=== PATIENT | female | born 1950 | race Caucasian/White ===

== ENCOUNTER 2017-04-25 13:14 | Inpatient (IN) | payer OTHER ==
[~2017-04-25] VITALS: Ht 152.4 cm; Wt 47.6 kg
[2017-04-25 13:25] VITALS: BP 108/42
[2017-04-25] MEDS ORDERED: Sodium Chloride 500ML 500 ML IV ONE (13:27)
[2017-04-25] MEDS ORDERED: Albuterol ud Inhalation HHN ONE ×2 (13:30→15:45)
[2017-04-25] MEDS ORDERED: Ipratropium 0.02% Inh Soln 2.5ml UD HHN ONE ×2 (13:30→15:45)
[2017-04-25] MEDS ORDERED: TYLENOL650 MG/20. ORAL (13:37)
[2017-04-25] MEDS ORDERED: ZYVOX600 MG ORAL (13:37)
[2017-04-25] MEDS ORDERED: DIGOXIN0.125 MG/2 ORAL (13:37)
[2017-04-25] MEDS ORDERED: ASPIR 8181 MG ORAL (13:37)
[2017-04-25] MEDS ORDERED: METOPROLOL TAR100 M1 ORAL (13:37)
[2017-04-25] MEDS ORDERED: AZITHROMYCIN250 MG ORAL (13:37)
[2017-04-25] MEDS ORDERED: DIOVAN HCT 80MG1 TAB ORAL (13:37)
[2017-04-25] MEDS ORDERED: ALBUTEROL SULF8.5 GM INH (13:37)
[2017-04-25] MEDS ORDERED: ADVAIR 250-501 EACH INH (13:37)
[2017-04-25] MEDS ORDERED: AMIODARONE HCL400 M1 ORAL (13:37)
[2017-04-25] MEDS ORDERED: HYDROcodone/Acetamin 10/325 tab ORAL ONE (13:45)
--- NOTE | 2017-04-25 13:53 | Emergency Room Report ---
History of Present Illness General Chief Complaint: General Complaint Source: Patient Present Illness HPI Patient presents with several complaints complains of cough Shortness of breath diarrhea Diffuse myalgia Patient has had recent hospitalization Was dispositioned to a board and care facility however reports that she's not doing well has not been getting her medications Patient requested [place] upon arrival Reports that she has breathing problems however cannot give me a full diagnosis Patient's paperwork does report COPD Allergies: Coded Allergies: No Known Allergies (Unverified , 04/25/17) Patient History Past Medical History: see triage record Pertinent Family History: none Reviewed Nursing Documentation: PMH: Agreed, PSxH: Agreed Nursing Documentation-PMH Hx Hypertension: Yes Hx COPD: Yes Review of Systems All Other Systems: negative except mentioned in HPI Physical Exam Vital Signs Date Time Temp Pulse Resp B/P (MAP) Pulse Ox O2 Delivery O2 Flow Rate FiO2 04/25/17 13:13 98.1 102 14 108/42 98 Room Air Sp02 EP Interpretation: reviewed, normal General Appearance: mild distress - appears tachypneic Head: normocephalic, atraumatic Eyes: bilateral eye PERRL, bilateral eye EOMI ENT: hearing grossly normal, normal pharynx, TMs + canals normal, uvula midline Neck: full range of motion, supple, no meningismus, no bony tend Respiratory: no retraction, no accessory muscle use, wheezing - Bilaterally along with tachypnea, very minimal retractions were noted initially Cardiovascular #1: normal peripheral pulses, regular rate, rhythm, no edema, no gallop, no JVD, no murmur Gastrointestinal: normal bowel sounds, non tender, soft, no mass, no organomegaly, non-distended, no guarding, no hernia, no pulsatile mass, no rebound Genitourinary: no CVA tenderness Musculoskeletal: normal inspection - However the patient appears tremulous Neurologic: oriented x3, responsive, financial services rep III-XII nml as tested, motor strength/ tone normal, sensory intact Psychiatric: mood/affect normal Skin: other - Diffuse venous stasis on both lower extremity no obvious pitting edema Lymphatic: normal inspection, no adenopathy Medical Decision Making Diagnostic Impression: Primary Impression: COPD exacerbation Additional Impressions: Dyspnea Hyponatremia ER Course Patient is a fairly complex patient with multiple differential to consideration including but not limited to cardiac cardiopulmonary and vascular emergencies Patient has done somewhat better with breathing treatment At this time showing abnormal blood tests including hyponatremia Patient also received steroids for the COPD exacerbation at this time requires further inpatient care Labs Test 04/25/17 13:50 White Blood Count 10.9 K/UL (4.8-10.8) Red Blood Count 3.07 M/UL (4.20-5.40) Hemoglobin 9.4 G/DL (12.0-16.0) Hematocrit 29.1 % (37.0-47.0) Mean Corpuscular Volume 95 FL (80-99) Mean Corpuscular Hemoglobin 30.5 PG (27.0-31.0) Mean Corpuscular Hemoglobin Concent 32.1 G/DL (32.0-36.0) Red Cell Distribution Width 15.3 % (11.6-14.8) Platelet Count 293 K/UL (150-450) Mean Platelet Volume 5.5 FL (6.5-10.1) Neutrophils (%) (Auto) % (45.0-75.0) Lymphocytes (%) (Auto) % (20.0-45.0) Monocytes (%) (Auto) % (1.0-10.0) Eosinophils (%) (Auto) % (0.0-3.0) Basophils (%) (Auto) % (0.0-2.0) Differential Total Cells Counted 100 Neutrophils % (Manual) 90 % (45-75) Lymphocytes % (Manual) 4 % (20-45) Monocytes % (Manual) 6 % (1-10) Eosinophils % (Manual) 0 % (0-3) Basophils % (Manual) 0 % (0-2) Band Neutrophils 0 % (0-8) Platelet Estimate Adequate Platelet Morphology Normal Hypochromasia 1+ Anisocytosis 1+ Sodium Level 128 MMOL/L (136-145) Potassium Level 4.3 MMOL/L (3.5-5.1) Chloride Level 97 MMOL/L (98-107) Carbon Dioxide Level 25 MMOL/L (21-32) Anion Gap 6 mmol/L (5-15) Blood Urea Nitrogen 9 mg/dL (7-18) Creatinine 0.7 MG/DL (0.55-1.30) Estimat Glomerular Filtration Rate > 60 mL/min (>60) Glucose Level 115 MG/DL (74-106) Calcium Level 9.0 MG/DL (8.5-10.1) Total Bilirubin 0.3 MG/DL (0.2-1.0) Aspartate Amino Transf (AST/SGOT) 34 U/L (15-37) Alanine Aminotransferase (ALT/SGPT) 18 U/L (12-78) Alkaline Phosphatase 85 U/L (46-116) Total Creatine Kinase 43 U/L (26-308) Creatine Kinase MB 1.9 NG/ML (0.0-3.6) Creatine Kinase MB Relative Index 4.4 Troponin I 0.040 ng/mL (0.000-0.056) Total Protein 7.3 G/DL (6.4-8.2) Albumin 2.9 G/DL (3.4-5.0) Globulin 4.4 g/dL Albumin/Globulin Ratio 0.7 (1.0-2.7) Rhythm Strip Diag. Results EP Interpretation: yes Rate: 88 Rhythm: NSR, no PVC's, no ectopy Other Impression Please note that the initial EKG is interpreting possible atrial fibrillation however the patient appears to be in a sinus rhythm with significant artifact, Chest X-Ray Diagnostic Results Chest X-Ray Diagnostic Results : Chest X-Ray Ordered: Yes # of Views/Limited/Complete: 1 View Indication: Chest Pain EP Interpretation: Yes Interpretation: no consolidation, no effusion, no pneumothorax, other - cardiomegaly Impression: No acute disease Electronically Signed by: DO Alexander Jones Vital Signs Date Time Temp Pulse Resp B/P (MAP) Pulse Ox O2 Delivery O2 Flow Rate FiO2 04/25/17 13:25 98.1 102 14 108/42 98 Room Air Status: improved Disposition: ADMITTED INPATIENT Condition: Serious MANNY PRASAD D.O. Apr 25, 2017 13:53
[2017-04-25] MEDS ORDERED: Solu-MEDROL 125mg Inj IVP ONE (14:00)
[2017-04-25 14:09] LABS: HEMATOCRIT 29.1 % (37.0-47.0); HEMOGLOBIN 9.4 G/DL (12.0-16.0); MEAN CORPUSCULAR VOLUME 95 FL (80-99); PLATELET COUNT 293 K/UL (150-450); RED BLOOD COUNT 3.07 M/UL (4.20-5.40); RED CELL DISTRIBUTION WIDTH 15.3 % (11.6-14.8); WHITE BLOOD COUNT 10.9 K/UL (4.8-10.8)
[2017-04-25 14:26] LABS: ANION GAP 6 mmol/L (5-15); BLOOD UREA NITROGEN 9 mg/dL (7-18); CARBON DIOXIDE 25 MMOL/L (21-32); CHLORIDE 97 MMOL/L (98-107); CREATININE 0.7 MG/DL (0.55-1.30); POTASSIUM 4.3 MMOL/L (3.5-5.1); SODIUM 128 MMOL/L (136-145)
[2017-04-25 14:40] LABS: ALANINE AMINOTRANSFERASE 18 U/L (12-78); ALBUMIN 2.9 G/DL (3.4-5.0); ALBUMIN/GLOBULIN RATIO 0.7 (1.0-2.7); ALKALINE PHOSPHATASE 85 U/L (46-116); ASPARTATE AMINO TRANSFERASE 34 U/L (15-37); BILIRUBIN,TOTAL 0.3 MG/DL (0.2-1.0); CKMB 1.9 NG/ML (0.0-3.6); CREATINE KINASE 43 U/L (26-308)
[2017-04-25] MEDS ORDERED: LORazepam Inj 2mg/ml 1ml IV ONE (14:45)
[2017-04-25 16:45] VITALS: BP 114/61
[2017-04-25 20:04] VITALS: BP 90/50
[2017-04-25] MEDS: Heparin 5000 units/ml inj SUBQ SCH (21:32)
[2017-04-25] MEDS: Albuterol/Ipratropium 3ml neb HHN SCH (23:00)
[2017-04-25] MEDS: cefTRIAXone 1 GM in D5W 55 ML IVPB SCH (23:43)
[2017-04-26] MEDS: Acetaminophen 500mg (ES) tab ORAL PRN ×2 (00:20→08:57)
[2017-04-26] MEDS: Albuterol/Ipratropium 3ml neb HHN SCH ×6 (03:00→23:48)
[2017-04-26] MEDS: Zolpidem 5mg tab ORAL PRN ×2 (03:09→20:00)
[2017-04-26 04:00] VITALS: BP 102/58
[2017-04-26 07:14] LABS: HEMATOCRIT 24.2 % (37.0-47.0); HEMOGLOBIN 7.8 G/DL (12.0-16.0); MEAN CORPUSCULAR VOLUME 95 FL (80-99); PLATELET COUNT 223 K/UL (150-450); RED BLOOD COUNT 2.55 M/UL (4.20-5.40); RED CELL DISTRIBUTION WIDTH 15.1 % (11.6-14.8); WHITE BLOOD COUNT 15.6 K/UL (4.8-10.8)
[2017-04-26 07:54] LABS: ALANINE AMINOTRANSFERASE 14 U/L (12-78); ALBUMIN 2.5 G/DL (3.4-5.0); ALBUMIN/GLOBULIN RATIO 0.7 (1.0-2.7); ALKALINE PHOSPHATASE 71 U/L (46-116); ANION GAP 7 mmol/L (5-15); ASPARTATE AMINO TRANSFERASE 20 U/L (15-37); BILIRUBIN,TOTAL 0.2 MG/DL (0.2-1.0); BLOOD UREA NITROGEN 8 mg/dL (7-18); CALCIUM 8.2 MG/DL (8.5-10.1); CARBON DIOXIDE 25 MMOL/L (21-32); CHLORIDE 98 MMOL/L (98-107); CREATININE 0.7 MG/DL (0.55-1.30); SODIUM 130 MMOL/L (136-145)
[2017-04-26 08:00] VITALS: BP 95/54
[2017-04-26] MEDS: Solu-MEDROL 40mg Inj IVP SCH ×2 (08:26→20:00)
[2017-04-26] MEDS: Heparin 5000 units/ml inj SUBQ SCH ×3 (08:28→20:06)
--- NOTE | 2017-04-26 08:36 | Diagnostic Imaging Report ---
Indication: Dyspnea Technique: XRAY Chest 1v Comparison: None Findings: An limited by patient positioning and overlying necklace which, per the x-ray technologist, patient refused to remove. Heart is enlarged. The aorta is calcified. There may be mild central pulmonary congestion. Limited evaluation of the retrocardiac lung and small effusion or infiltrate not entirely excluded. Right lung is clear. No pneumothorax. There is degenerative change of the spine. Impression: Limited exam. Small retrocardiac effusion or infiltrate is not entirely excluded. Follow-up exam recommended. Cardiomegaly and pulmonary vascular congestion. Study obtained via the emergency department however patient admitted to the hospital at time of dictation of the final report.
--- NOTE | 2017-04-26 11:02 | Consultation ---
Consult Note Consult Note 66 year old patient presents with complains of cough, shortness of breath, and diffuse myalgias. Patient was negative for flu. Patient has had recent hospitalization but apparently not able to fill his medications. Patient with breathing difficulty and reported to have COPD no fevers or chills noted. patient without chest pain or trauma. Patient denies ill contacts Allergies: No Known Allergies (Unverified , 04/25/17) Past Medical History: COPD, hypertension Pertinent Family History: none Reviewed of systems: otherwise negative Physical WDWN NAD reduced breath sounds bilaterally with scattered wheeze [id number] without MRG NABS nontender no HSM no CCE nonfocal Laboratory Tests Test 04/25/17 13:50 04/25/17 21:00 04/26/17 04:40 White Blood Count 10.9 K/UL (4.8-10.8) H 15.6 K/UL (4.8-10.8) H Red Blood Count 3.07 M/UL (4.20-5.40) L 2.55 M/UL (4.20-5.40) L Hemoglobin 9.4 G/DL (12.0-16.0) L 7.8 G/DL (12.0-16.0) L Hematocrit 29.1 % (37.0-47.0) L 24.2 % (37.0-47.0) L Mean Corpuscular Volume 95 FL (80-99) 95 FL (80-99) Mean Corpuscular Hemoglobin 30.5 PG (27.0-31.0) 30.8 PG (27.0-31.0) Mean Corpuscular Hemoglobin Concent 32.1 G/DL (32.0-36.0) 32.5 G/DL (32.0-36.0) Red Cell Distribution Width 15.3 % (11.6-14.8) H 15.1 % (11.6-14.8) H Platelet Count 293 K/UL (150-450) 223 K/UL (150-450) Mean Platelet Volume 5.5 FL (6.5-10.1) L 5.0 FL (6.5-10.1) L Neutrophils (%) (Auto) % (45.0-75.0) % (45.0-75.0) Lymphocytes (%) (Auto) % (20.0-45.0) % (20.0-45.0) Monocytes (%) (Auto) % (1.0-10.0) % (1.0-10.0) Eosinophils (%) (Auto) % (0.0-3.0) % (0.0-3.0) Basophils (%) (Auto) % (0.0-2.0) % (0.0-2.0) Differential Total Cells Counted 100 100 Neutrophils % (Manual) 90 % (45-75) H 95 % (45-75) H Lymphocytes % (Manual) 4 % (20-45) L 4 % (20-45) L Monocytes % (Manual) 6 % (1-10) 1 % (1-10) Eosinophils % (Manual) 0 % (0-3) 0 % (0-3) Basophils % (Manual) 0 % (0-2) 0 % (0-2) Band Neutrophils 0 % (0-8) 0 % (0-8) Platelet Estimate Adequate Adequate Platelet Morphology Normal Normal Hypochromasia 1+ 1+ Anisocytosis 1+ 1+ Sodium Level 128 MMOL/L (136-145) L 130 MMOL/L (136-145) L Potassium Level 4.3 MMOL/L (3.5-5.1) 5.0 MMOL/L (3.5-5.1) Chloride Level 97 MMOL/L (98-107) L 98 MMOL/L (98-107) Carbon Dioxide Level 25 MMOL/L (21-32) 25 MMOL/L (21-32) Anion Gap 6 mmol/L (5-15) 7 mmol/L (5-15) Blood Urea Nitrogen 9 mg/dL (7-18) 8 mg/dL (7-18) Creatinine 0.7 MG/DL (0.55-1.30) 0.7 MG/DL (0.55-1.30) Estimat Glomerular Filtration Rate > 60 mL/min (>60) > 60 mL/min (>60) Glucose Level 115 MG/DL (74-106) H 111 MG/DL (74-106) H Calcium Level 9.0 MG/DL (8.5-10.1) 8.2 MG/DL (8.5-10.1) L Total Bilirubin 0.3 MG/DL (0.2-1.0) 0.2 MG/DL (0.2-1.0) Aspartate Amino Transf (AST/SGOT) 34 U/L (15-37) 20 U/L (15-37) Alanine Aminotransferase (ALT/SGPT) 18 U/L (12-78) 14 U/L (12-78) Alkaline Phosphatase 85 U/L (46-116) 71 U/L (46-116) Total Creatine Kinase 43 U/L (26-308) Creatine Kinase MB 1.9 NG/ML (0.0-3.6) Creatine Kinase MB Relative Index 4.4 Troponin I 0.040 ng/mL (0.000-0.056) 0.050 ng/mL (0.000-0.056) Total Protein 7.3 G/DL (6.4-8.2) 5.9 G/DL (6.4-8.2) L Albumin 2.9 G/DL (3.4-5.0) L 2.5 G/DL (3.4-5.0) L Globulin 4.4 g/dL 3.4 g/dL Albumin/Globulin Ratio 0.7 (1.0-2.7) L 0.7 (1.0-2.7) L Arterial Blood pH 7.459 (7.350-7.450) Arterial Blood Partial Pressure CO2 34.9 mmHg (35.0-45.0) L Arterial Blood Partial Pressure O2 133.9 mmHg (75.0-100.0) H Arterial Blood HCO3 24.2 mmol/L (22.0-26.0) Arterial Blood Oxygen Saturation 98.3 % (92.0-98.0) H Arterial Blood Base Excess 0.5 Itz Test Positive Pro-B-Type Natriuretic Peptide 1868 pg/mL (0-125) H Thyroid Stimulating Hormone (TSH) 1.722 uiU/mL (0.358-3.740) IMPRESSION possible pneumonia COPD shortness of breath hypertension anemia ?GIB PLAN defer transfusion to primary ?gi work up care noted IV antibiotics respiratory care oxygen supportive care IV steroids senior care steroid and LABA/LAMA inhalers needed impression, plan, and exam edited and reviewed in detail care discussed with SPENCER LOZANO Apr 26, 2017 11:02
[2017-04-26 12:00] VITALS: BP 101/65
[2017-04-26 16:00] VITALS: BP 112/73
[2017-04-26] MEDS ORDERED: LORazepam 0.5mg tab ORAL PRN (16:00)
[2017-04-26] MEDS ORDERED: Digoxin 0.125mg tab ORAL ONE (16:15)
[2017-04-26] MEDS ORDERED: Tubing IV Secondary IV ONE (16:21)
[2017-04-26] MEDS: Vancomycin 500mg/D5W 110ml IVPB SCH ×2 (17:46)
[2017-04-26 20:00] VITALS: BP 107/68
--- NOTE | 2017-04-26 22:02 | History and Physical Report ---
DATE OF ADMISSION: 04/25/2017 REASON FOR ADMISSION: Shortness of breath. HISTORY OF PRESENT ILLNESS: This is a 66-year-old female. She recently was hospitalized at [facility] and discharged to [facility]. She is unclear whether she received a medication regimen that was prescribed to her at least part of it. She was hospitalized with Staph aureus sepsis and COPD exacerbation with rapid atrial fibrillation. She also was noted to have hyponatremia. She also was noted to have cocaine abuse, this Staph aureus with methicillin-resistant. The patient presented to the emergency room tonight with shortness of breath and congestion and muscle aches. She has had a cough. Her workup in the emergency room included a chest x-ray that revealed a possible infiltrate. She was noted to be wheezing as well. PAST MEDICAL HISTORY: Outlined above and bipolar disorder. ALLERGIES: None known. FAMILY HISTORY: Noncontributory. SOCIAL HISTORY: Denies current smoking. There is a history of cocaine abuse. She denies alcohol abuse. REVIEW OF SYSTEMS: Cannot be reliably obtained. PHYSICAL EXAMINATION: VITAL SIGNS: Blood pressure 108/42, pulse 102, respirations 14, and afebrile. HEENT: Conjunctiva pink. Oropharynx clear. NECK: Supple. No accessory muscle use. LUNGS: With coarse breath sounds, rhonchi and expiratory wheezes. CARDIAC: Irregularly irregular. Normal S1 and S2. No murmur. ABDOMEN: Soft and nontender. EXTREMITIES: With trace edema, but stasis derm changes. LABORATORY AND DIAGNOSTIC DATA: White count 10.9 and hemoglobin 9.4. Sodium 128, potassium 4.3, bicarbonate 25, BUN 9, and creatinine 0.7. Albumin 2.9. Troponin negative. IMPRESSION: 1. Chronic obstructive pulmonary disease exacerbation. 2. Atrial fibrillation with increased ventricular response. 3. Possible pneumonia, recent hospitalization. 4. History of cocaine abuse. 5. Recent methicillin-resistant Staphylococcus aureus bacteremia. 6. Paroxysmal bronchospasm. 7. Bipolar disorder. 8. Hyponatremia. PLAN: 1. Antimicrobials. 2. Respiratory hygiene. 3. Bronchodilators. 4. Intravenous steroid. 5. Continue digoxin. 6. No anticoagulation plans due to compliance issues. 7. Follow up chest x-ray. 8. Saline hydration. 9. Possible concomitant diuresis. 10. Check urine toxicology screen and urine electrolytes. Jeremiah Kitty Harvey DR: OLIVA JOB#: [id number] CC:
--- NOTE | 2017-04-26 22:02 | Progress Note ---
DATE: 04/26/2017 INTERNAL MEDICINE PROGRESS NOTE SUBJECTIVE: The patient is agitated, but directable. She has been asking for frequent pain medications and is quite anxious. She notes less congestion. She is anxious to leave the hospital. OBJECTIVE: VITAL SIGNS: Oxygen saturation on room air 96%, blood pressure 101/65, heart rate 83, and respiratory rate 20. Monitored rhythm, atrial fibrillation. HEENT: Conjunctivae pink. Oropharynx clear. NECK: Supple. LUNGS: With coarse breath sounds and rhonchi. Few expiratory wheezes. CARDIAC: Irregularly irregular rhythm. Normal S1 and S2. ABDOMEN: Soft. EXTREMITIES: No edema. LABORATORY AND DIAGNOSTIC DATA: Echocardiogram, mild pulmonary hypertension. Normal ejection fraction. Normal wall motion. Mild mitral regurgitation and tricuspid regurgitation. Chest x-ray with possible infiltrate on the right. IMPRESSION: 1. Possible pneumonia. 2. History of staphylococcal sepsis. 3. Paroxysmal atrial fibrillation. 4. History of cocaine abuse. 5. Chronic obstructive pulmonary disease exacerbation. 6. Acute on chronic diastolic congestive heart failure. 7. Moderate protein-calorie malnutrition. 8. Hyponatremia. 9. Anemia. PLAN: 1. Check anemia panel, consider transfusion. 2. Antibiotics to be broadened and covered Staph aureus. 3. Respiratory hygiene. 4. Steroids with taper as able. 5. Inhaled bronchodilators. 6. Digoxin for rate control. 7. No plan for anticoagulation due to anemia, possible bleeding risk and compliance issues. 8. Anxiolytics based on clinical state. Jeremiah Harvey M.D. DR: OLIVA JOB#: [id number] CC:
[2017-04-27] VITALS: BP 124/80
[2017-04-27] MEDS: cefTRIAXone 1 GM in D5W 55 ML IVPB SCH ×2 (00:27→22:54)
[2017-04-27] MEDS ORDERED: OLANZapine 2.5mg tab ORAL ONE (02:45)
[2017-04-27] MEDS: Albuterol/Ipratropium 3ml neb HHN SCH ×6 (03:23→23:31)
[2017-04-27] MEDS: LORazepam 1mg tab ORAL PRN ×3 (03:52→22:54)
[2017-04-27 04:00] VITALS: BP 121/77
[2017-04-27] MEDS: Vancomycin 500mg/D5W 110ml IVPB SCH ×4 (06:00→16:45)
[2017-04-27 07:23] LABS: HEMATOCRIT 28.1 % (37.0-47.0); HEMOGLOBIN 8.9 G/DL (12.0-16.0); MEAN CORPUSCULAR VOLUME 97 FL (80-99); PLATELET COUNT 258 K/UL (150-450); RED CELL DISTRIBUTION WIDTH 16.3 % (11.6-14.8); WHITE BLOOD COUNT 12.3 K/UL (4.8-10.8)
[2017-04-27 08:00] VITALS: BP 124/75
[2017-04-27 08:08] LABS: ALANINE AMINOTRANSFERASE 17 U/L (12-78); ALBUMIN 2.8 G/DL (3.4-5.0); ALBUMIN/GLOBULIN RATIO 0.7 (1.0-2.7); ALKALINE PHOSPHATASE 83 U/L (46-116); ANION GAP 9 mmol/L (5-15); ASPARTATE AMINO TRANSFERASE 22 U/L (15-37); BILIRUBIN,TOTAL 0.2 MG/DL (0.2-1.0); BLOOD UREA NITROGEN 6 mg/dL (7-18); CALCIUM 8.9 MG/DL (8.5-10.1); CARBON DIOXIDE 24 MMOL/L (21-32); CHLORIDE 100 MMOL/L (98-107); CREATININE 0.7 MG/DL (0.55-1.30); POTASSIUM 4.7 MMOL/L (3.5-5.1); SODIUM 133 MMOL/L (136-145)
[2017-04-27] MEDS: Solu-MEDROL 40mg Inj IVP SCH ×2 (08:10→21:46)
[2017-04-27 08:13] LABS: % IRON SATURATION 6 % (15-50); IRON 17 ug/dL (50-175); TOTAL IRON BINDING CAPACITY 284 ug/dL (250-450)
[2017-04-27] MEDS: Digoxin 0.125mg tab ORAL SCH (08:13)
[2017-04-27] MEDS: Heparin 5000 units/ml inj SUBQ SCH ×2 (08:13→21:00)
--- NOTE | 2017-04-27 08:19 | Pulmonology Progress Note ---
Assessment/Plan Assessment/Plan IMPRESSION possible pneumonia COPD shortness of breath hypertension anemia ?GIB PLAN care noted IV antibiotics respiratory care oxygen supportive care IV steroids chcf steroid and LABA/LAMA inhalers needed on discharge impression, plan, and exam edited and reviewed in detail care discussed with RN Subjective Allergies: Coded Allergies: No Known Allergies (Unverified , 04/25/17) Subjective care reviewed on o2 Objective Last 24 Hour Vital Signs Date Time Temp Pulse Resp B/P (MAP) Pulse Ox O2 Delivery O2 Flow Rate FiO2 04/27/17 08:13 72 04/27/17 07:22 28 04/27/17 07:22 98 18 99 Nasal Cannula 2.0 04/27/17 07:17 Nasal Cannula 2.0 28 04/27/17 07:17 99 Nasal Cannula 2.0 04/27/17 07:15 98 18 99 Nasal Cannula 2.0 04/27/17 04:00 97.9 110 18 121/77 100 Nasal Cannula 2.0 04/27/17 04:00 95 04/27/17 03:25 92 20 98 Nasal Cannula 2.0 04/27/17 03:18 28 04/27/17 03:18 86 18 99 Nasal Cannula 2.0 04/27/17 00:00 108 04/27/17 00:00 97.4 101 12 124/80 99 Nasal Cannula 2.0 04/26/17 23:56 106 22 98 Nasal Cannula 2.0 04/26/17 23:48 99 22 96 Nasal Cannula 2.0 04/26/17 20:00 108 04/26/17 20:00 98.1 102 12 107/68 100 Nasal Cannula 2.0 04/26/17 19:12 99 22 97 Nasal Cannula 2.0 28 04/26/17 18:56 97 Nasal Cannula 2.0 28 04/26/17 18:56 Nasal Cannula 2.0 28 04/26/17 18:55 105 22 97 Nasal Cannula 2.0 04/26/17 17:46 97 04/26/17 16:00 99 04/26/17 16:00 97.1 103 20 112/73 99 Nasal Cannula 2.0 04/26/17 15:28 Nasal Cannula 04/26/17 15:28 Nasal Cannula 04/26/17 12:00 97.2 95 20 101/65 96 Room Air 04/26/17 12:00 82 04/26/17 11:25 101 18 Room Air 04/26/17 11:10 106 22 98 Nasal Cannula 2.0 28 Intake and Output 04/26/17 04/27/17 19:00 07:00 Intake Total 240 ml 200 ml Output Total 450 ml Balance -210 ml 200 ml Intake Oral 240 ml 200 ml Output Urine Total 450 ml # Voids 1 3 # Bowel Movements 1 Objective WDWN NAD reduced breath sounds bilaterally without rhonchi or wheeze [id number] without MRG NABS nontender no HSM no CCE nonfocal Microbiology Date/Time Source Procedure Growth Status 04/26/17 00:00 Nasal Nares Influenza Types A,B Antigen (LOS) - Final Complete Laboratory Tests 04/26/17 21:00: Urine Osmolality 202L, Urine Random Sodium < 10L, Urine Opiates Screen Negative , Urine Barbiturates Screen Negative, Phencyclidine (PCP) Screen Negative, Urine Amphetamines Screen Negative, Urine Benzodiazepines Screen Negative, Urine Cocaine Screen Negative, Urine Marijuana (THC) Screen Negative 04/27/17 05:15: White Blood Count 12.3H, Red Blood Count 2.90L, Hemoglobin 8.9L, Hematocrit 28.1L, Mean Corpuscular Volume 97, Mean Corpuscular Hemoglobin 30.9, Mean Corpuscular Hemoglobin Concent 31.8L, Red Cell Distribution Width 16.3H, Platelet Count 258, Mean Platelet Volume 5.7L, Neutrophils (%) (Auto) , Lymphocytes (%) (Auto) , Monocytes (%) (Auto) , Eosinophils (%) (Auto) , Basophils (%) (Auto) , Neutrophils % (Manual) [Pending], Lymphocytes % (Manual) [Pending], Platelet Estimate [Pending], Platelet Morphology [Pending], Sodium Level 133L, Potassium Level 4.7, Chloride Level 100, Carbon Dioxide Level 24, Anion Gap 9, Blood Urea Nitrogen 6L, Creatinine 0.7, Estimat Glomerular Filtration Rate > 60, Glucose Level 112H, Calcium Level 8.9, Iron Level 17L, Total Iron Binding Capacity 284, Percent Iron Saturation 6L, Unsaturated Iron Binding 267, Total Bilirubin 0.2, Aspartate Amino Transf (AST/SGOT) 22, Alanine Aminotransferase (ALT/SGPT) 17, Alkaline Phosphatase 83, Total Protein 7.0, Albumin 2.8L, Globulin 4.2, Albumin/Globulin Ratio 0.7L, Vitamin B12 Level [ Pending], Folate [Pending], Digoxin Level 0.6L Current Medications Medications (Trade) Dose Ordered Sig/Matthieu Route PRN Reason Start Time Stop Time Status Last Admin Dose Admin Acetaminophen (Tylenol) 650 mg Q6H PRN ORAL Mild Pain/Temp > 100.5 04/26/17 18:00 05/26/17 17:59 04/27/17 08:12 Albuterol/ Ipratropium (Albuterol/ Ipratropium) 3 ml Q4HRT HHN 04/25/17 23:00 04/30/17 22:59 04/27/17 07:15 Ceftriaxone Sodium 1 gm/ Dextrose 55 ml @ 110 mls/hr Q24H IVPB 04/25/17 23:00 05/02/17 22:59 04/27/17 00:27 Digoxin (Lanoxin) 0.125 mg DAILY ORAL 04/27/17 09:00 05/27/17 08:59 04/27/17 08:13 Heparin Sodium (Porcine) (Heparin 5000 units/ml) 5,000 units EVERY 12 HOURS SUBQ 04/25/17 21:00 05/25/17 20:59 04/25/17 21:32 Lorazepam (Ativan) 1 mg Q8HR PRN ORAL For Anxiety 04/26/17 23:00 05/03/17 22:59 04/27/17 03:52 Methylprednisolone Sodium Succinate (Solu-MEDROL) 40 mg EVERY 12 HOURS IVP 04/26/17 09:00 05/26/17 08:59 04/27/17 08:10 Olanzapine (ZyPREXA) 5 mg HSPRN PRN ORAL Agitation/insomnia 04/26/17 20:45 05/26/17 20:44 04/26/17 21:23 Ondansetron HCl (Zofran) 4 mg Q6H PRN IVP Nausea & Vomiting 04/26/17 17:00 05/26/17 16:59 04/27/17 03:52 Vancomycin HCl (Vanco rx to dose) 1 ea DAILY PRN MISC Per rx protocol 04/26/17 17:00 05/26/17 16:59 Vancomycin HCl 500 mg/Dextrose 110 ml @ 110 mls/hr Q12H IVPB 04/26/17 18:00 05/01/17 17:59 04/27/17 06:00 SPENCER GUERRERO Apr 27, 2017 08:18
--- NOTE | 2017-04-27 11:34 | Diagnostic Imaging Report ---
Indication: Cough Technique: One view of the chest Comparison: 04/25/2017 Findings: There is again demonstrated blunting of left costophrenic sulcus, consistent with pleural fluid. There is new finding of blunting of the right costophrenic sulcus, may also indicate a small amount of pleural fluid. The lungs are clear. The heart is borderline enlarged. There is a small nodular opacity projected at the left lateral midlung, not evident previously. Impression: Stable left, possible new or increased small right pleural effusions, over 2 days Small rounded opacity projected of the left lateral midlung. Suspect artifact overlapping structures, but could represent a small patchy developing infiltrate. Follow-up radiographs recommended
[2017-04-27 12:00] VITALS: BP 110/58
--- NOTE | 2017-04-27 12:49 | Wound Care Consultation ---
Wound Assessment Wound Assessment #1: Wound Number: 1 Wound Present on Admission: Yes New Wound: No Status Change of Wound: No Wound Location Body Site Modif: left, right, upper Wound Location Body Site: arm Wound Type: scab - scabs scattered with self inflicted scratches Shaye Test: Does not Shaye Wound Thickness: Partial Thickness Percent of Wound [place]/Red: 50 Percent of Wound Black/Brown: 50 - scabs Wound Drainage Description: Serosanguineous Wound Drainage Amount: Scant Wound Drainage Odor: None/Absent Wound General Appearance: Reddened, Draining Wound Assessment #2: Wound Number: 2 Wound Present on Admission: Yes New Wound: No Status Change of Wound: No Wound Location Body Site Modif: left, right, lower Wound Location Body Site: leg Wound Type: scab - scabs scattered with self inflicted scratches Shaye Test: Does not Shaye Wound Thickness: Full Thickness - and partial thickness Wound Drainage Description: Serosanguineous Wound Drainage Amount: Scant Wound Drainage Odor: None/Absent Tissue Surrounding Wound: Erythemic Wound General Appearance: Reddened, Draining Wound Assessment #3: Wound Number: 3 Wound Present on Admission: Yes New Wound: No Status Change of Wound: No Wound Location Body Site Modif: left Wound Location Body Site: metatarsal head - 1st Wound Type: scab - callus like yellow/hanson Shaye Test: Does not Shaye Wound Length: 1.0 Wound Width: 1.0 Wound Depth: utd Percent of Wound Black/Brown: 100 - yellow /hanson Wound Drainage Amount: None Wound Drainage Odor: None/Absent Tissue Surrounding Wound: Intact Wound General Appearance: Open to air Wound Assessment #4: Wound Number: 4 Wound Present on Admission: Yes New Wound: No Status Change of Wound: No Wound Location Body Site: perianal Wound Type: chemical burn Shaye Test: Does not Shaye Percent of Wound [place]/Red: 100 Wound Drainage Amount: None Wound Drainage Odor: None/Absent Tissue Surrounding Wound: Erythemic Wound General Appearance: Reddened Wound Comment #1 left and right upper arm scattered scabs with self inflicted scabs #2 left and right lower leg scattered scabs with self inflicted scabs. #3 left 1st metatarsal head scab-callus like. #4 perianal chemical burn Recommendation. -Local wound care as ordered. -Turn and reposition. -Keep clean and dry. -Optimize nutrition. -Assess and notify MD for any change of condition to skin noted. BELGICA NORIEGA Apr 27, 2017 12:49
[2017-04-27] MEDS ORDERED: Depakote 500mg tab ORAL ONE (13:00)
--- NOTE | 2017-04-27 15:56 | Diagnostic Imaging Report ---
Indication: Cough Technique: One view of the chest Comparison: 07 hours earlier Findings: Bilateral left greater than right costophrenic angle blunting persists. One or more faint subtle opacities again demonstrated in the left midlung periphery, not significantly changed if real. The heart remains enlarged. Impression: Unchanged, over 7 hours, findings as above.
[2017-04-27 16:00] VITALS: BP 101/57
--- NOTE | 2017-04-27 18:21 | Cardiology Report ---
APPROVED REPORT EXAM: Two-dimensional and M-mode echocardiogram with Doppler and color Doppler. INDICATION Cardiomyopathy M-Mode DIMENSIONS IVSd0.6 (0.7-1.1cm)Left Atrium (MM)4.6 (1.6-4.0cm) LVDd5.3 (3.5-5.6cm)Aortic Root3.2 (2.0-3.7cm) PWd1.0 (0.7-1.1cm)Aortic Cusp Exc.2.0 (1.5-2.0cm) LVDs3.5 (2.5-4.0cm) PWs1.1 cm Technically difficult study due to poor acoustical windows. Pt moving. Normal left ventricular chamber size, systolic function and wall motion. Left ventricular ejection fraction estimated to be 55-60%. No evidence of left ventricular hypertrophy. No evidence of pericardial or pleural effusion. Mild left atrial enlargement by 2D. Severe right atrial enlargement by 2D. Focal aortic valve sclerosis with adequate cusp excursion. Thickened mitral valve leaflets with normal excursion. Mild mitral annulus and aortic root calcification. Pulmonic valve is well visualized. Normal tricuspid valve structure. IVC dilated at 2.6 cm with minimal collapse with respiration indicate increased RA pressure. RA pressure of 15mmHg. A color flow and spectral Doppler study was performed and revealed: No aortic regurgitation. Mild mitral regurgitation. Mitral diastolic dysfunction not obtainable due to A-FIB. Severe tricuspid regurgitation. Tricuspid systolic velocities suggests peak right ventricular systolic pressure of 43 mmHg Consistent with mild pulmonary hypertension. Pulmonic regurgitation present.
[2017-04-27 20:00] VITALS: BP 118/67
[2017-04-27] MEDS: Iron Sucrose 100 MG in NS 55 ML IV SCH (21:46)
[2017-04-27] MEDS ORDERED: Digoxin 0.5mg/2ml Inj IVP ONE (22:00)
--- NOTE | 2017-04-27 23:16 | Consultation ---
History of Present Illness General Date patient seen: Apr 27, 2017 Chief Complaint: General Complaint Present Illness HPI 66 yo female with hx of bipolar d/o as well as mmp. here for medical stabilization. the pt pw pressured speech, agitation, delusional, disorganized and has memory impairment Allergies: Coded Allergies: No Known Allergies (Unverified , 04/25/17) Medication History Scheduled Albuterol Sulfate* (Albuterol Sulfate Mdi*), 2 PUFF INH PRN, (Reported) Amiodarone Hcl* (Amiodarone Hcl*), 200 MG ORAL EVERY 8 HOURS, (Reported) Aspirin* (Aspir 81*), 81 MG ORAL DAILY, (Reported) Azithromycin* (Zithromax*), 250 MG ORAL DAILY, (Reported) Digoxin* (Digoxin*), 0.125 MG ORAL DAILY, (Reported) Fluticasone/Salmeterol (Advair 250-50 Diskus), 1 PUFF INH EVERY 12 HOURS, ( Reported) Linezolid* (Zyvox*), 600 MG ORAL EVERY 12 HOURS, (Reported) Metoprolol Tartrate* (Metoprolol Tartrate*), 100 MG ORAL DAILY, (Reported) Valsartan (Diovan), 1 TAB ORAL DAILY, (Reported) Scheduled PRN Acetaminophen (Acetaminophen), 650 MG ORAL Q6H PRN for Prn Headache/Temp > 101, (Reported) Patient History History Provided By: Patient, Medical Record, PMD Healthcare decision maker Resuscitation status Full Code Advanced Directive on File No Past Medical/Surgical History Past Medical/Surgical History: (1) Dyspnea (2) Hyponatremia (3) COPD exacerbation (4) Agitation Review of Systems Psychiatric: Reports: prior hx, anxiety, depressed feelings, emotional problems Physical Exam General Appearance: no apparent distress, alert, confused, agitated, combative Neurologic: alert, responsive, disoriented Last 24 Hour Vital Signs Date Time Temp Pulse Resp B/P (MAP) Pulse Ox O2 Delivery O2 Flow Rate FiO2 04/27/17 22:58 117 04/27/17 20:26 Nasal Cannula 2.0 04/27/17 20:25 28 04/27/17 20:25 98 Nasal Cannula 2.0 04/27/17 20:24 93 18 97 Nasal Cannula 2.0 04/27/17 16:28 Nasal Cannula 04/27/17 16:28 Nasal Cannula 04/27/17 16:00 124 04/27/17 16:00 97.8 131 20 101/57 98 Room Air 131 04/27/17 12:00 98.0 123 18 110/58 Room Air 123 04/27/17 12:00 127 04/27/17 11:34 88 18 96 Nasal Cannula 2.0 28 04/27/17 11:34 28 04/27/17 11:24 88 18 96 Nasal Cannula 2.0 28 04/27/17 08:13 72 04/27/17 08:00 144 04/27/17 08:00 98.1 72 20 124/75 Nasal Cannula 20 04/27/17 07:22 28 04/27/17 07:22 98 18 99 Nasal Cannula 2.0 28 04/27/17 07:17 Nasal Cannula 2.0 28 04/27/17 07:17 99 Nasal Cannula 2.0 28 04/27/17 07:15 98 18 99 Nasal Cannula 2.0 28 04/27/17 04:00 97.9 110 18 121/77 100 Nasal Cannula 2.0 04/27/17 04:00 95 04/27/17 03:25 92 20 98 Nasal Cannula 2.0 28 04/27/17 03:18 28 04/27/17 03:18 86 18 99 Nasal Cannula 2.0 28 04/27/17 00:00 108 04/27/17 00:00 97.4 101 12 124/80 99 Nasal Cannula 2.0 04/26/17 23:56 106 22 98 Nasal Cannula 2.0 28 04/26/17 23:48 99 22 96 Nasal Cannula 2.0 28 Intake and Output 04/26/17 04/27/17 19:00 07:00 Intake Total 240 ml 200 ml Output Total 450 ml Balance -210 ml 200 ml Intake Oral 240 ml 200 ml Output Urine Total 450 ml # Voids 1 3 # Bowel Movements 1 Laboratory Tests Test 04/27/17 05:15 White Blood Count 12.3 K/UL (4.8-10.8) H Red Blood Count 2.90 M/UL (4.20-5.40) L Hemoglobin 8.9 G/DL (12.0-16.0) L Hematocrit 28.1 % (37.0-47.0) L Mean Corpuscular Volume 97 FL (80-99) Mean Corpuscular Hemoglobin 30.9 PG (27.0-31.0) Mean Corpuscular Hemoglobin Concent 31.8 G/DL (32.0-36.0) L Red Cell Distribution Width 16.3 % (11.6-14.8) H Platelet Count 258 K/UL (150-450) Mean Platelet Volume 5.7 FL (6.5-10.1) L Neutrophils (%) (Auto) % (45.0-75.0) Lymphocytes (%) (Auto) % (20.0-45.0) Monocytes (%) (Auto) % (1.0-10.0) Eosinophils (%) (Auto) % (0.0-3.0) Basophils (%) (Auto) % (0.0-2.0) Differential Total Cells Counted 100 Neutrophils % (Manual) 85 % (45-75) H Lymphocytes % (Manual) 6 % (20-45) L Monocytes % (Manual) 9 % (1-10) Eosinophils % (Manual) 0 % (0-3) Basophils % (Manual) 0 % (0-2) Band Neutrophils 0 % (0-8) Platelet Estimate Adequate Platelet Morphology Normal Hypochromasia 2+ Anisocytosis 1+ Sodium Level 133 MMOL/L (136-145) L Potassium Level 4.7 MMOL/L (3.5-5.1) Chloride Level 100 MMOL/L (98-107) Carbon Dioxide Level 24 MMOL/L (21-32) Anion Gap 9 mmol/L (5-15) Blood Urea Nitrogen 6 mg/dL (7-18) L Creatinine 0.7 MG/DL (0.55-1.30) Estimat Glomerular Filtration Rate > 60 mL/min (>60) Glucose Level 112 MG/DL (74-106) H Calcium Level 8.9 MG/DL (8.5-10.1) Iron Level 17 ug/dL (50-175) L Total Iron Binding Capacity 284 ug/dL (250-450) Percent Iron Saturation 6 % (15-50) L Unsaturated Iron Binding 267 ug/dL (112-346) Total Bilirubin 0.2 MG/DL (0.2-1.0) Aspartate Amino Transf (AST/SGOT) 22 U/L (15-37) Alanine Aminotransferase (ALT/SGPT) 17 U/L (12-78) Alkaline Phosphatase 83 U/L (46-116) Total Protein 7.0 G/DL (6.4-8.2) Albumin 2.8 G/DL (3.4-5.0) L Globulin 4.2 g/dL Albumin/Globulin Ratio 0.7 (1.0-2.7) L Vitamin B12 Level 716 PG/ML (193-986) Folate 6.9 NG/ML (8.6-58.9) L Digoxin Level 0.6 NG/ML (0.9-2.0) L Height (Feet): 5 Height (Inches): 0.00 Weight (Pounds): 106 Medications Current Medications Medications (Trade) Dose Ordered Sig/Matthieu Route PRN Reason Start Time Stop Time Status Last Admin Dose Admin Acetaminophen (Tylenol) 650 mg Q6H PRN ORAL Mild Pain/Temp > 100.5 04/26/17 18:00 05/26/17 17:59 04/27/17 08:12 Albuterol/ Ipratropium (Albuterol/ Ipratropium) 3 ml Q4HRT HHN 04/25/17 23:00 04/30/17 22:59 04/27/17 20:23 Ceftriaxone Sodium 1 gm/ Dextrose 55 ml @ 110 mls/hr Q24H IVPB 04/25/17 23:00 05/02/17 22:59 04/27/17 22:54 Digoxin (Lanoxin) 0.125 mg DAILY ORAL 04/27/17 09:00 05/27/17 08:59 04/27/17 08:13 Folic Acid (Folate) 1 mg DAILY ORAL 04/27/17 11:00 05/27/17 10:59 04/27/17 13:08 Heparin Sodium (Porcine) (Heparin 5000 units/ml) 5,000 units EVERY 12 HOURS SUBQ 04/25/17 21:00 05/25/17 20:59 04/25/17 21:32 Iron Sucrose 100 mg/Sodium Chloride 60 ml @ 240 mls/hr QHS IV 04/27/17 21:00 05/01/17 21:14 04/27/17 21:46 Lorazepam (Ativan) 1 mg Q8HR PRN ORAL For Anxiety 04/26/17 23:00 05/03/17 22:59 04/27/17 22:54 Methylprednisolone Sodium Succinate (Solu-MEDROL) 40 mg DAILY IVP 04/28/17 09:00 05/26/17 08:59 Olanzapine (ZyPREXA) 10 mg HSPRN PRN ORAL Agitation 04/27/17 12:30 05/27/17 12:29 Ondansetron HCl (Zofran) 4 mg Q6H PRN IVP Nausea & Vomiting 04/26/17 17:00 05/26/17 16:59 04/27/17 21:46 Vancomycin HCl (Vanco rx to dose) 1 ea DAILY PRN MISC Per rx protocol 04/26/17 17:00 05/26/17 16:59 Vancomycin HCl 500 mg/Dextrose 110 ml @ 110 mls/hr Q12H IVPB 04/26/17 18:00 05/01/17 17:59 04/27/17 16:45 Assessment/Plan Status: not improved, unchanged Assessment/Plan bipolar d/o dementia Alex Ellsworth M.D. Apr 27, 2017 23:16
[2017-04-28] VITALS: BP 110/68
--- NOTE | 2017-04-28 00:15 | Progress Note ---
DATE: 04/27/2017 SUBJECTIVE: The patient is more calm today. Has congestion and shortness of breath. Oxygen saturation on room air is 96%. OBJECTIVE: VITAL SIGNS: Blood pressure 101/57, pulse 130, respirations 20, and afebrile. LUNGS: Coarse breath sounds. Scattered rhonchi. HEART: Irregularly irregular rhythm. Normal S1, S2. ABDOMEN: Soft. EXTREMITIES: Trace edema. DIAGNOSTIC DATA: Chest x-ray reveals left greater than right costophrenic angle blunting and left mid lung periphery with opacity. LABORATORY DATA: White count 12 and hemoglobin 8.9. Percent saturation of iron is 6%. Folate is 6.9. B12 700. Albumin 2.8. IMPRESSION: 1. Chronic obstructive pulmonary disease exacerbation. 2. Probable pneumonia. 3. Moderate protein-calorie malnutrition. 4. Folate deficiency. 5. Iron deficiency. 6. Anemia, multifactorial. 7. Hyponatremia, improved. 8. Bipolar disorder with psychosis. PLAN: 1. Antibiotics. 2. Respiratory hygiene. 3. Bronchodilators. 4. Vitamin supplements. 5. Stool occult blood test. 6. Bronchodilators. 7. Steroid taper. 8. Psych therapy. 9. Discharge planning. eJremiah Harvey M.D. DR: JENA JOB#: [id number] CC:
[2017-04-28] MEDS: Albuterol/Ipratropium 3ml neb HHN SCH ×6 (02:23→23:00)
[2017-04-28 04:00] VITALS: BP 103/77
[2017-04-28 05:41] LABS: HEMATOCRIT 23.5 % (37.0-47.0); HEMOGLOBIN 7.5 G/DL (12.0-16.0); MEAN CORPUSCULAR VOLUME 96 FL (80-99); PLATELET COUNT 199 K/UL (150-450); RED BLOOD COUNT 2.44 M/UL (4.20-5.40); RED CELL DISTRIBUTION WIDTH 16.2 % (11.6-14.8); WHITE BLOOD COUNT 10.8 K/UL (4.8-10.8)
[2017-04-28] MEDS: Vancomycin 500mg/D5W 110ml IVPB SCH ×2 (06:03)
[2017-04-28 08:00] VITALS: BP 105/62
--- NOTE | 2017-04-28 08:21 | Pulmonology Progress Note ---
Assessment/Plan Assessment/Plan IMPRESSION bronchitis COPD with exacerbation shortness of breath hypertension anemia ?GIB PLAN po steroids and antibiotics respiratory care oxygen supportive care long-term steroid and LABA/LAMA inhalers needed on discharge discharge planning impression, plan, and exam edited and reviewed in detail care discussed with RN Subjective Allergies: Coded Allergies: No Known Allergies (Unverified , 04/25/17) Subjective care reviewed mild congestion Objective Last 24 Hour Vital Signs Date Time Temp Pulse Resp B/P (MAP) Pulse Ox O2 Delivery O2 Flow Rate FiO2 04/28/17 07:02 Nasal Cannula 2.0 28 04/28/17 06:43 99 20 99 Nasal Cannula 2.0 28 04/28/17 06:31 94 22 98 Nasal Cannula 2.0 28 04/28/17 06:30 98 Nasal Cannula 2.0 28 04/28/17 04:00 125 04/28/17 04:00 98.0 133 20 103/77 97 Room Air 118 04/28/17 02:28 95 18 99 Nasal Cannula 2.0 28 04/28/17 02:27 28 04/28/17 02:21 96 18 97 Nasal Cannula 2.0 28 04/28/17 00:00 139 04/28/17 00:00 139 04/28/17 00:00 99.0 126 20 110/68 96 Room Air 118 04/27/17 23:45 85 18 98 Nasal Cannula 2.0 28 04/27/17 23:33 28 04/27/17 23:31 89 18 96 Nasal Cannula 2.0 28 04/27/17 22:58 117 04/27/17 20:31 91 18 97 Nasal Cannula 2.0 28 04/27/17 20:26 Nasal Cannula 2.0 28 04/27/17 20:25 28 04/27/17 20:25 98 Nasal Cannula 2.0 28 04/27/17 20:24 93 18 97 Nasal Cannula 2.0 28 04/27/17 20:00 118 04/27/17 20:00 98.0 118 20 118/67 98 Room Air 118 04/27/17 16:28 Nasal Cannula 04/27/17 16:28 Nasal Cannula 04/27/17 16:00 124 04/27/17 16:00 97.8 131 20 101/57 98 Room Air 131 04/27/17 12:00 98.0 123 18 110/58 Room Air 123 04/27/17 12:00 127 04/27/17 11:34 88 18 96 Nasal Cannula 2.0 28 04/27/17 11:34 28 04/27/17 11:24 88 18 96 Nasal Cannula 2.0 28 Intake and Output 04/27/17 04/28/17 19:00 07:00 Intake Total 1032 ml 1200 ml Balance 1032 ml 1200 ml Intake Oral 472 ml 1200 ml Other 560 ml # Voids 5 5 # Bowel Movements 3 Objective WDWN NAD reduced breath sounds bilaterally some rhonchi [id number] without MRG NABS nontender no HSM no CCE nonfocal Microbiology Date/Time Source Procedure Growth Status 04/26/17 21:00 Sputum Gram Stain - Final Resulted 04/26/17 21:00 Sputum Culture - Preliminary Gram Negative Bacillus 1 Resulted 04/26/17 00:00 Nasal Nares Influenza Types A,B Antigen (LOS) - Final Complete 04/26/17 07:45 Rectum VRE Culture - Final Enterococcus Faecium - Vre Complete Laboratory Tests 04/28/17 05:30: White Blood Count 10.8, Red Blood Count 2.44L, Hemoglobin 7.5L, Hematocrit 23.5L , Mean Corpuscular Volume 96, Mean Corpuscular Hemoglobin 30.7, Mean Corpuscular Hemoglobin Concent 31.9L, Red Cell Distribution Width 16.2H, Platelet Count 199, Mean Platelet Volume 5.0L, Neutrophils (%) (Auto) , Lymphocytes (%) (Auto) , Monocytes (%) (Auto) , Eosinophils (%) (Auto) , Basophils (%) (Auto) , Neutrophils % (Manual) [Pending], Lymphocytes % (Manual) [Pending], Platelet Estimate [Pending], Platelet Morphology [Pending], Vancomycin Level Trough < 2.0L Current Medications Medications (Trade) Dose Ordered Sig/Matthieu Route PRN Reason Start Time Stop Time Status Last Admin Dose Admin Acetaminophen (Tylenol) 650 mg Q6H PRN ORAL Mild Pain/Temp > 100.5 04/26/17 18:00 05/26/17 17:59 04/27/17 08:12 Albuterol/ Ipratropium (Albuterol/ Ipratropium) 3 ml Q4HRT HHN 04/25/17 23:00 04/30/17 22:59 04/28/17 06:40 Ceftriaxone Sodium 1 gm/ Dextrose 55 ml @ 110 mls/hr Q24H IVPB 04/25/17 23:00 05/02/17 22:59 04/27/17 22:54 Digoxin (Lanoxin) 0.125 mg DAILY ORAL 04/27/17 09:00 05/27/17 08:59 04/27/17 08:13 Folic Acid (Folate) 1 mg DAILY ORAL 04/27/17 11:00 05/27/17 10:59 04/27/17 13:08 Heparin Sodium (Porcine) (Heparin 5000 units/ml) 5,000 units EVERY 12 HOURS SUBQ 04/25/17 21:00 05/25/17 20:59 04/25/17 21:32 Iron Sucrose 100 mg/Sodium Chloride 60 ml @ 240 mls/hr QHS IV 04/27/17 21:00 05/01/17 21:14 04/27/17 21:46 Lorazepam (Ativan) 1 mg Q8HR PRN ORAL For Anxiety 04/26/17 23:00 05/03/17 22:59 04/27/17 22:54 Methylprednisolone Sodium Succinate (Solu-MEDROL) 40 mg DAILY IVP 04/28/17 09:00 05/26/17 08:59 Olanzapine (ZyPREXA) 10 mg HSPRN PRN ORAL Agitation 04/27/17 12:30 05/27/17 12:29 Ondansetron HCl (Zofran) 4 mg Q6H PRN IVP Nausea & Vomiting 04/26/17 17:00 05/26/17 16:59 04/27/17 21:46 Vancomycin HCl (Vanco rx to dose) 1 ea DAILY PRN MISC Per rx protocol 04/26/17 17:00 05/26/17 16:59 Vancomycin HCl 500 mg/Dextrose 110 ml @ 110 mls/hr Q12H IVPB 04/26/17 18:00 05/01/17 17:59 04/28/17 06:03 SPENCER GUERRERO Apr 28, 2017 08:20
[2017-04-28] MEDS ORDERED: Solu-MEDROL 40mg Inj IVP SCH (09:00)
[2017-04-28] MEDS: Levofloxacin 500mg tab ORAL SCH (09:15)
[2017-04-28] MEDS: Digoxin 0.125mg tab ORAL SCH (09:18)
[2017-04-28] MEDS: Advair 250/50 Inhaler - 14 dose INH SCH (10:25)
[2017-04-28] MEDS: Heparin 5000 units/ml inj SUBQ SCH ×2 (11:15→20:59)
[2017-04-28 12:00] VITALS: BP_SYST 151; BP_SYST 94; BP_DIAS 60; BP_DIAS 77
[2017-04-28 16:00] VITALS: BP 112/68
[2017-04-28] MEDS: LORazepam 1mg tab ORAL PRN (17:06)
[2017-04-28 20:00] VITALS: BP 98/65
[2017-04-28] MEDS: Iron Sucrose 100 MG in NS 55 ML IV SCH (20:52)
--- NOTE | 2017-04-28 22:05 | General Progress Note ---
Assessment/Plan Status: not improved, unchanged Assessment/Plan bipolar do depakote 500mg qam, 750 mg qhs zyprexa 10mg qhs Subjective Date patient seen: Apr 28, 2017 Neurologic/Psychiatric: Reports: anxiety, depressed, emotional problems Allergies: Coded Allergies: No Known Allergies (Unverified , 04/25/17) Objective Last 24 Hour Vital Signs Date Time Temp Pulse Resp B/P (MAP) Pulse Ox O2 Delivery O2 Flow Rate FiO2 04/28/17 19:29 89 20 99 Nasal Cannula 2.0 28 04/28/17 19:15 Room Air 21 04/28/17 19:15 98 Room Air 21 04/28/17 19:14 97 20 99 Nasal Cannula 2.0 28 04/28/17 16:00 137 04/28/17 16:00 97.0 94 24 112/68 96 Nasal Cannula 2.0 04/28/17 15:55 93 20 99 Nasal Cannula 2.0 28 04/28/17 15:45 92 20 98 Nasal Cannula 2.0 28 04/28/17 12:00 97.5 124 20 94/60 97 Room Air 04/28/17 11:49 133 04/28/17 10:49 96 20 99 Nasal Cannula 2.0 28 04/28/17 10:40 90 20 98 Nasal Cannula 2.0 28 04/28/17 09:18 124 04/28/17 08:00 97.7 134 18 105/62 99 Nasal Cannula 2.0 04/28/17 07:32 128 04/28/17 07:02 Nasal Cannula 2.0 28 04/28/17 06:43 99 20 99 Nasal Cannula 2.0 28 04/28/17 06:31 94 22 98 Nasal Cannula 2.0 28 04/28/17 06:30 98 Nasal Cannula 2.0 28 04/28/17 04:00 125 04/28/17 04:00 98.0 133 20 103/77 97 Room Air 118 04/28/17 02:28 95 18 99 Nasal Cannula 2.0 28 04/28/17 02:27 28 04/28/17 02:21 96 18 97 Nasal Cannula 2.0 28 04/28/17 00:00 139 04/28/17 00:00 139 04/28/17 00:00 99.0 126 20 110/68 96 Room Air 118 04/27/17 23:45 85 18 98 Nasal Cannula 2.0 28 04/27/17 23:33 28 04/27/17 23:31 89 18 96 Nasal Cannula 2.0 28 04/27/17 22:58 117 Intake and Output 04/27/17 04/28/17 19:00 07:00 Intake Total 1032 ml 1200 ml Balance 1032 ml 1200 ml Intake Oral 472 ml 1200 ml Other 560 ml # Voids 5 5 # Bowel Movements 3 Laboratory Tests 04/28/17 05:30: White Blood Count 10.8, Red Blood Count 2.44L, Hemoglobin 7.5L, Hematocrit 23.5L , Mean Corpuscular Volume 96, Mean Corpuscular Hemoglobin 30.7, Mean Corpuscular Hemoglobin Concent 31.9L, Red Cell Distribution Width 16.2H, Platelet Count 199, Mean Platelet Volume 5.0L, Neutrophils (%) (Auto) , Lymphocytes (%) (Auto) , Monocytes (%) (Auto) , Eosinophils (%) (Auto) , Basophils (%) (Auto) , Differential Total Cells Counted 100, Neutrophils % ( Manual) 94H, Lymphocytes % (Manual) 2L, Monocytes % (Manual) 1, Eosinophils % ( Manual) 0, Basophils % (Manual) 0, Band Neutrophils 3, Platelet Estimate Adequate, Platelet Morphology Normal, Hypochromasia 1+, Anisocytosis 1+, Macrocytosis 1+, Vancomycin Level Trough < 2.0L Height (Feet): 5 Height (Inches): 0.00 Weight (Pounds): 106 General Appearance: no apparent distress, alert, confused Neurologic: alert, disoriented, depressed affect Alex Guerra M.D. Apr 28, 2017 22:05
[2017-04-29] VITALS: BP 110/64
[2017-04-29] MEDS: Advair 250/50 Inhaler - 14 dose INH SCH ×3 (00:05→21:40)
[2017-04-29] MEDS: LORazepam 1mg tab ORAL PRN ×2 (03:16→15:21)
[2017-04-29] MEDS: Albuterol/Ipratropium 3ml neb HHN SCH ×6 (03:28→23:54)
[2017-04-29 04:00] VITALS: BP 109/63
[2017-04-29 08:00] VITALS: BP 123/82
[2017-04-29] MEDS: Heparin 5000 units/ml inj SUBQ SCH ×2 (09:00→21:35)
--- NOTE | 2017-04-29 09:04 | Pulmonology Progress Note ---
Assessment/Plan Assessment/Plan IMPRESSION bronchitis COPD with exacerbation shortness of breath hypertension anemia sinus tachycardia PLAN po steroids and antibiotics cultures sensitive to levaquin check ECG now duplex legs respiratory care oxygen supportive care mcfp steroid and LABA/LAMA inhalers needed on discharge discharge planning impression, plan, and exam edited and reviewed in detail care discussed with RN Subjective Allergies: Coded Allergies: No Known Allergies (Unverified , 04/25/17) Subjective care reviewed mild congestion sinus tachycardia Objective Last 24 Hour Vital Signs Date Time Temp Pulse Resp B/P (MAP) Pulse Ox O2 Delivery O2 Flow Rate FiO2 04/29/17 07:22 136 20 96 Nasal Cannula 2.0 28 04/29/17 07:22 96 Nasal Cannula 2.0 28 04/29/17 07:22 Nasal Cannula 2.0 28 04/29/17 04:12 132 04/29/17 04:00 98.2 126 12 109/63 100 Nasal Cannula 2.0 04/29/17 03:37 95 20 99 Room Air 2.0 28 04/29/17 03:28 96 20 99 Nasal Cannula 2.0 28 04/29/17 00:00 98.8 144 22 110/64 100 Nasal Cannula 2.0 04/28/17 23:48 126 04/28/17 23:20 Room Air 04/28/17 23:20 Room Air 04/28/17 20:00 98.1 138 18 98/65 99 Nasal Cannula 2.0 04/28/17 19:37 137 04/28/17 19:29 89 20 99 Nasal Cannula 2.0 28 04/28/17 19:15 Room Air 21 04/28/17 19:15 98 Room Air 21 04/28/17 19:14 97 20 99 Nasal Cannula 2.0 28 04/28/17 16:00 137 04/28/17 16:00 97.0 94 24 112/68 96 Nasal Cannula 2.0 04/28/17 15:55 93 20 99 Nasal Cannula 2.0 28 04/28/17 15:45 92 20 98 Nasal Cannula 2.0 28 04/28/17 12:00 97.5 124 20 94/60 97 Room Air 04/28/17 11:49 133 04/28/17 10:49 96 20 99 Nasal Cannula 2.0 28 04/28/17 10:40 90 20 98 Nasal Cannula 2.0 28 04/28/17 09:18 124 Intake and Output 04/28/17 04/29/17 19:00 07:00 Intake Total 890 ml 660 ml Output Total 1200 ml 500 ml Balance -310 ml 160 ml Intake Oral 780 ml 600 ml IV Total 110 ml 60 ml Output Urine Total 1200 ml 500 ml # Voids 1 6 # Bowel Movements 1 Objective WDWN NAD reduced breath sounds bilaterally with some wheeze [id number] tachy without MRG NABS nontender no HSM no CCE nonfocal Microbiology Date/Time Source Procedure Growth Status 04/26/17 21:00 Sputum Gram Stain - Final Complete 04/26/17 21:00 Sputum Culture - Final Klebsiella Pneumoniae Esbl Complete Current Medications Medications (Trade) Dose Ordered Sig/Matthieu Route PRN Reason Start Time Stop Time Status Last Admin Dose Admin Acetaminophen (Tylenol) 650 mg Q6H PRN ORAL Mild Pain/Temp > 100.5 04/26/17 18:00 05/26/17 17:59 04/29/17 05:04 Albuterol/ Ipratropium (Albuterol/ Ipratropium) 3 ml Q4HRT HHN 04/25/17 23:00 04/30/17 22:59 04/29/17 07:21 Digoxin (Lanoxin) 0.125 mg DAILY ORAL 04/27/17 09:00 05/27/17 08:59 04/28/17 09:18 Divalproex Sodium (Depakote) 500 mg DAILY ORAL 04/29/17 09:00 05/29/17 08:59 Divalproex Sodium (Depakote) 750 mg BEDTIME ORAL 04/28/17 21:00 05/28/17 20:59 04/28/17 20:52 Folic Acid (Folate) 1 mg DAILY ORAL 04/27/17 11:00 05/27/17 10:59 04/28/17 09:18 Heparin Sodium (Porcine) (Heparin 5000 units/ml) 5,000 units EVERY 12 HOURS SUBQ 04/25/17 21:00 05/25/17 20:59 04/28/17 20:59 Iron Sucrose 100 mg/Sodium Chloride 60 ml @ 240 mls/hr QHS IV 04/27/17 21:00 05/01/17 21:14 04/28/17 20:52 Levofloxacin (Levaquin) 500 mg DAILY ORAL 04/28/17 09:00 05/05/17 08:59 04/28/17 09:15 Lorazepam (Ativan) 1 mg Q8HR PRN ORAL For Anxiety 04/26/17 23:00 05/03/17 22:59 04/29/17 03:16 Olanzapine (ZyPREXA) 10 mg HSPRN PRN ORAL Agitation 04/27/17 12:30 05/27/17 12:29 04/28/17 09:19 Ondansetron HCl (Zofran) 4 mg Q6H PRN IVP Nausea & Vomiting 04/26/17 17:00 05/26/17 16:59 04/29/17 05:02 Prednisone (predniSONE) 20 mg DAILY ORAL 04/28/17 09:00 05/28/17 08:59 04/28/17 09:15 Salmeterol Xinafoate/ Fluticasone (Advair 250/50 Diskus) 1 puffs BIDRT INH 04/28/17 10:00 05/28/17 09:59 04/29/17 00:05 Tiotropium [place] (Spiriva Inhaler) 1 puff DAILY@1000 INH 04/28/17 10:00 05/28/17 09:59 04/28/17 10:25 SPENCER GUERRERO Apr 29, 2017 09:03
[2017-04-29] MEDS: Depakote 500mg tab ORAL SCH (10:09)
[2017-04-29] MEDS: Levofloxacin 500mg tab ORAL SCH (10:09)
[2017-04-29] MEDS: Digoxin 0.125mg tab ORAL SCH (10:09)
[2017-04-29 12:00] VITALS: BP 111/66
[2017-04-29 16:00] VITALS: BP 118/83
[2017-04-29 20:00] VITALS: BP 113/60
[2017-04-29] MEDS: Iron Sucrose 100 MG in NS 55 ML IV SCH (21:33)
[2017-04-30] VITALS: BP 133/77
[2017-04-30] MEDS ORDERED: Ertapenem 0.5 GM in NS 55 ML IVPB SCH (00:45)
[2017-04-30] MEDS ORDERED: Ertapenem 0.5 GM in NS 55 ML IVPB ONE (00:45)
[2017-04-30] MEDS ORDERED: Ertapenem (INVanz) 1gm Inj ONE (01:26)
[2017-04-30] MEDS: LORazepam 1mg tab ORAL PRN ×2 (02:59→14:15)
[2017-04-30] MEDS: Albuterol/Ipratropium 3ml neb HHN SCH ×5 (03:00→19:00)
[2017-04-30 04:00] VITALS: BP 90/61
--- NOTE | 2017-04-30 07:54 | Pulmonology Progress Note ---
Assessment/Plan Assessment/Plan IMPRESSION bronchitis COPD with exacerbation shortness of breath hypertension anemia sinus tachycardia PLAN po steroids and antibiotics cultures sensitive to levaquin iv antibiotics added follow up ECG duplex legs respiratory care oxygen supportive care fpc steroid and LABA/LAMA inhalers needed on discharge discharge planning impression, plan, and exam edited and reviewed in detail care discussed with RN Subjective Allergies: Coded Allergies: No Known Allergies (Unverified , 04/25/17) Subjective care reviewed mild congestion sinus tachycardia still persistent Objective Last 24 Hour Vital Signs Date Time Temp Pulse Resp B/P (MAP) Pulse Ox O2 Delivery O2 Flow Rate FiO2 04/30/17 04:00 98.2 125 20 90/61 98 Nasal Cannula 2.0 04/30/17 04:00 124 04/30/17 03:26 Nasal Cannula 2.0 28 04/30/17 03:26 Nasal Cannula 2.0 28 04/30/17 02:44 99.5 04/30/17 00:00 158 04/30/17 00:00 102.6 132 20 133/77 95 Nasal Cannula 2.0 04/29/17 23:54 Nasal Cannula 2.0 28 04/29/17 23:54 Nasal Cannula 2.0 28 04/29/17 21:00 144 04/29/17 20:00 100.2 139 22 113/60 100 Nasal Cannula 2.0 04/29/17 19:31 121 20 97 Nasal Cannula 2.0 28 04/29/17 19:22 Nasal Cannula 2.0 28 04/29/17 19:22 115 20 96 Nasal Cannula 2.0 28 04/29/17 19:22 96 Nasal Cannula 2.0 28 04/29/17 16:00 98.2 134 18 118/83 99 Room Air 04/29/17 16:00 140 04/29/17 14:54 Room Air 21 04/29/17 14:54 133 Room Air 21 04/29/17 12:00 99.5 132 20 111/66 98 Room Air 04/29/17 12:00 134 04/29/17 10:54 Room Air 21 04/29/17 10:54 129 99 Nasal Cannula 2.0 28 04/29/17 10:09 142 04/29/17 09:49 124 20 96 Room Air 21 04/29/17 08:00 97.3 142 20 123/82 98 Room Air 04/29/17 08:00 147 Intake and Output 04/29/17 04/30/17 19:00 07:00 Intake Total 360 ml 975 ml Output Total 200 ml Balance 160 ml 975 ml Intake Oral 360 ml 860 ml IV Total 115 ml Output Urine Total 200 ml # Voids 3 1 Objective WDWN NAD reduced breath sounds bilaterally with some wheeze S1S2RR tachy without MRG NABS nontender no HSM no CCE nonfocal Current Medications Medications (Trade) Dose Ordered Sig/Matthieu Route PRN Reason Start Time Stop Time Status Last Admin Dose Admin Acetaminophen (Tylenol) 650 mg Q6H PRN ORAL Mild Pain/Temp > 100.5 04/26/17 18:00 05/26/17 17:59 04/30/17 01:45 Albuterol/ Ipratropium (Albuterol/ Ipratropium) 3 ml Q4HRT HHN 04/25/17 23:00 04/30/17 22:59 04/29/17 19:22 Digoxin (Lanoxin) 0.125 mg DAILY ORAL 04/27/17 09:00 05/27/17 08:59 04/29/17 10:09 Divalproex Sodium (Depakote) 500 mg DAILY ORAL 04/29/17 09:00 05/29/17 08:59 04/29/17 10:09 Divalproex Sodium (Depakote) 750 mg BEDTIME ORAL 04/28/17 21:00 05/28/17 20:59 04/29/17 21:33 Ertapenem 0.5 gm/ Sodium Chloride 55 ml @ 110 mls/hr Q24H IVPB 04/30/17 00:45 05/05/17 00:44 UNV Folic Acid (Folate) 1 mg DAILY ORAL 04/27/17 11:00 05/27/17 10:59 04/29/17 10:09 Heparin Sodium (Porcine) (Heparin 5000 units/ml) 5,000 units EVERY 12 HOURS SUBQ 04/25/17 21:00 05/25/17 20:59 04/29/17 21:35 Iron Sucrose 100 mg/Sodium Chloride 60 ml @ 240 mls/hr QHS IV 04/27/17 21:00 05/01/17 21:14 04/29/17 21:33 Levofloxacin (Levaquin) 500 mg DAILY ORAL 04/28/17 09:00 05/05/17 08:59 04/29/17 10:09 Lorazepam (Ativan) 1 mg Q8HR PRN ORAL For Anxiety 04/26/17 23:00 05/03/17 22:59 04/30/17 02:59 Olanzapine (ZyPREXA) 10 mg HSPRN PRN ORAL Agitation 04/27/17 12:30 05/27/17 12:29 04/28/17 09:19 Ondansetron HCl (Zofran) 4 mg Q6H PRN IVP Nausea & Vomiting 04/26/17 17:00 05/26/17 16:59 04/29/17 15:21 Prednisone (predniSONE) 20 mg DAILY ORAL 04/28/17 09:00 05/28/17 08:59 04/29/17 10:09 Salmeterol Xinafoate/ Fluticasone (Advair 250/50 Diskus) 1 puffs BIDRT INH 04/28/17 10:00 05/28/17 09:59 04/29/17 09:49 Tiotropium [place] (Spiriva Inhaler) 1 puff DAILY@1000 INH 04/28/17 10:00 05/28/17 09:59 04/29/17 09:49 SPENCER GUERRERO Apr 30, 2017 07:54
[2017-04-30 08:00] VITALS: BP 108/77
[2017-04-30] MEDS: Levofloxacin 500mg tab ORAL SCH (08:16)
[2017-04-30] MEDS: Depakote 500mg tab ORAL SCH (08:16)
[2017-04-30] MEDS: Digoxin 0.125mg tab ORAL SCH (08:17)
[2017-04-30] MEDS: Heparin 5000 units/ml inj SUBQ SCH ×2 (08:19→21:00)
[2017-04-30] MEDS: Advair 250/50 Inhaler - 14 dose INH SCH ×2 (09:44→22:00)
[2017-04-30 12:00] VITALS: BP 99/58
[2017-04-30 12:18] LABS: HEMATOCRIT 26.8 % (37.0-47.0); HEMOGLOBIN 8.6 G/DL (12.0-16.0); MEAN CORPUSCULAR VOLUME 97 FL (80-99); PLATELET COUNT 113 K/UL (150-450); RED BLOOD COUNT 2.77 M/UL (4.20-5.40); RED CELL DISTRIBUTION WIDTH 16.4 % (11.6-14.8); WHITE BLOOD COUNT 6.8 K/UL (4.8-10.8)
[2017-04-30 13:10] LABS: ALANINE AMINOTRANSFERASE 26 U/L (12-78); ALBUMIN 2.1 G/DL (3.4-5.0); ALBUMIN/GLOBULIN RATIO 0.5 (1.0-2.7); ALKALINE PHOSPHATASE 82 U/L (46-116); ANION GAP 9 mmol/L (5-15); ASPARTATE AMINO TRANSFERASE 29 U/L (15-37); BILIRUBIN,TOTAL 0.4 MG/DL (0.2-1.0); BLOOD UREA NITROGEN 7 mg/dL (7-18); CALCIUM 8.3 MG/DL (8.5-10.1); CARBON DIOXIDE 28 MMOL/L (21-32); CHLORIDE 99 MMOL/L (98-107); CREATININE 0.6 MG/DL (0.55-1.30); POTASSIUM 3.4 MMOL/L (3.5-5.1); SODIUM 136 MMOL/L (136-145)
[2017-04-30 16:00] VITALS: BP 103/60
--- NOTE | 2017-04-30 18:00 | Progress Note ---
DATE: 04/28/2017 INTERNAL MEDICINE PROGRESS NOTE SUBJECTIVE: The patient is less congested, less shortness of breath. Still episodes of agitation, but directable and cooperative. OBJECTIVE: VITAL SIGNS: Blood pressure 112/68, pulse 94, respirations 24, and afebrile. LUNGS: Coarse breath sounds. Scattered rhonchi. HEART: Irregularly irregular rhythm. Normal S1, S2. ABDOMEN: Soft. EXTREMITIES: Trace edema. LABORATORY DATA: Hemoglobin is down to 7.5 and white count 10.8. Sputum has gram-negative rods. IMPRESSION: 1. Gram-negative pneumonia. 2. Chronic obstructive pulmonary disease exacerbation. 3. Iron deficiency anemia. 4. Folic acid deficiency. 5. Bipolar disorder, recovered. 6. Hyponatremia. PLAN: Reassess for transfusion. Continue vitamin replacement. Await final sputum culture. Continue current antimicrobials. Keep steroid taper. Respiratory hygiene. Jeremiah Harvey M.D. DR: YOGESH JOB#: [id number] CC:
[2017-04-30] MEDS ORDERED: Digoxin 0.5mg/2ml Inj IVP ONE (18:15)
[2017-04-30 20:00] VITALS: BP 102/69
[2017-04-30] MEDS: Iron Sucrose 100 MG in NS 55 ML IV SCH (21:06)
[2017-05-01] VITALS (8 sets, daily range): BP systolic 84–132; BP diastolic 56–83
--- NOTE | 2017-05-01 08:24 | Pulmonology Progress Note ---
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 and LABA/LAMA inhalers needed on discharge discharge planning impression, plan, and exam edited and reviewed in detail care discussed with RN Subjective Allergies: Coded Allergies: No Known Allergies (Unverified , 04/25/17) Subjective care reviewed mild congestion sinus tachycardia still persistent Objective Last 24 Hour Vital Signs Date Time Temp Pulse Resp B/P (MAP) Pulse Ox O2 Delivery O2 Flow Rate FiO2 05/01/17 07:38 98.2 115 23 117/78 95 05/01/17 04:10 05/01/17 04:00 137 05/01/17 04:00 98.4 143 24 116/77 94 Nasal Cannula 2.0 05/01/17 01:15 97.7 128 22 132/83 99 Nasal Cannula 2.0 05/01/17 00:00 126 05/01/17 00:00 97.7 128 22 130/83 99 Nasal Cannula 2.0 04/30/17 20:03 Room Air 04/30/17 20:00 128 04/30/17 20:00 97.9 109 22 102/69 96 Nasal Cannula 2.0 04/30/17 19:47 Room Air 04/30/17 19:47 Room Air 21 04/30/17 19:46 95 Room Air 21 04/30/17 18:39 137 04/30/17 16:00 145 04/30/17 16:00 97.3 143 20 103/60 97 Room Air 04/30/17 15:05 104 22 97 Room Air 21 04/30/17 15:00 100 22 97 Room Air 21 04/30/17 12:05 101 20 98 Room Air 04/30/17 12:01 94 22 96 Room Air 21 04/30/17 12:00 144 04/30/17 12:00 97.2 142 19 99/58 95 Room Air Intake and Output 04/30/17 05/01/17 19:00 07:00 Intake Total 536 ml 360 ml Balance 536 ml 360 ml Intake Oral 536 ml 300 ml IV Total 60 ml # Voids 1 3 # Bowel Movements 1 3 Objective WDWN NAD reduced breath sounds bilaterally with some wheeze S1S2RR tachy without MRG NABS nontender no HSM no CCE nonfocal Laboratory Tests 04/30/17 11:45: White Blood Count 6.8, Red Blood Count 2.77L, Hemoglobin 8.6L, Hematocrit 26.8L , Mean Corpuscular Volume 97, Mean Corpuscular Hemoglobin 31.0, Mean Corpuscular Hemoglobin Concent 32.0, Red Cell Distribution Width 16.4H, Platelet Count 113L, Mean Platelet Volume 6.3L, Neutrophils (%) (Auto) , Lymphocytes (%) (Auto) , Monocytes (%) (Auto) , Eosinophils (%) (Auto) , Basophils (%) (Auto) , Differential Total Cells Counted 100, Neutrophils % ( Manual) 89H, Lymphocytes % (Manual) 4L, Monocytes % (Manual) 6, Eosinophils % ( Manual) 1, Basophils % (Manual) 0, Band Neutrophils 0, Platelet Estimate DecreasedL, Platelet Morphology Normal, Hypochromasia 1+, Anisocytosis 1+, Sodium Level 136, Potassium Level 3.4L, Chloride Level 99, Carbon Dioxide Level 28, Anion Gap 9, Blood Urea Nitrogen 7, Creatinine 0.6, Estimat Glomerular Filtration Rate > 60, Glucose Level 125H, Calcium Level 8.3L, Total Bilirubin 0.4, Aspartate Amino Transf (AST/SGOT) 29, Alanine Aminotransferase (ALT/SGPT) 26, Alkaline Phosphatase 82, Total Protein 6.0L, Albumin 2.1L, Globulin 3.9, Albumin/Globulin Ratio 0.5L, Digoxin Level 0.8L 04/30/17 23:50: Stool Occult Blood [Pending] Current Medications Medications (Trade) Dose Ordered Sig/Matthieu Route PRN Reason Start Time Stop Time Status Last Admin Dose Admin Acetaminophen (Tylenol) 650 mg Q6H PRN ORAL Mild Pain/Temp > 100.5 04/26/17 18:00 05/26/17 17:59 04/30/17 01:45 Digoxin (Lanoxin) 0.125 mg DAILY ORAL 04/27/17 09:00 05/27/17 08:59 04/30/17 08:17 Divalproex Sodium (Depakote) 500 mg DAILY ORAL 04/29/17 09:00 05/29/17 08:59 04/30/17 08:16 Divalproex Sodium (Depakote) 750 mg BEDTIME ORAL 04/28/17 21:00 05/28/17 20:59 04/30/17 21:06 Folic Acid (Folate) 1 mg DAILY ORAL 04/27/17 11:00 05/27/17 10:59 04/30/17 08:16 Heparin Sodium (Porcine) (Heparin 5000 units/ml) 5,000 units EVERY 12 HOURS SUBQ 04/25/17 21:00 05/25/17 20:59 04/30/17 08:19 Iron Sucrose 100 mg/Sodium Chloride 60 ml @ 240 mls/hr QHS IV 04/27/17 21:00 05/01/17 21:14 04/30/17 21:06 Levofloxacin (Levaquin) 500 mg DAILY ORAL 04/28/17 09:00 05/05/17 08:59 04/30/17 08:16 Lorazepam (Ativan) 1 mg Q8HR PRN ORAL For Anxiety 04/26/17 23:00 05/03/17 22:59 04/30/17 14:15 Olanzapine (ZyPREXA) 10 mg HSPRN PRN ORAL Agitation 04/27/17 12:30 05/27/17 12:29 04/28/17 09:19 Ondansetron HCl (Zofran) 4 mg Q6H PRN IVP Nausea & Vomiting 04/26/17 17:00 05/26/17 16:59 04/29/17 15:21 Prednisone (predniSONE) 20 mg DAILY ORAL 04/28/17 09:00 05/28/17 08:59 04/30/17 08:18 Salmeterol Xinafoate/ Fluticasone (Advair 250/50 Diskus) 1 puffs BIDRT INH 04/28/17 10:00 05/28/17 09:59 04/30/17 09:44 Tiotropium [place] (Spiriva Inhaler) 1 puff DAILY@1000 INH 04/28/17 10:00 05/28/17 09:59 04/30/17 09:44 SPENCER GUERRERO May 01, 2017 08:24
[2017-05-01] MEDS: Levofloxacin 500mg tab ORAL SCH (08:33)
[2017-05-01] MEDS: Depakote 500mg tab ORAL SCH (08:33)
[2017-05-01] MEDS: Digoxin 0.125mg tab ORAL SCH (08:34)
[2017-05-01] MEDS: Heparin 5000 units/ml inj SUBQ SCH ×2 (09:00→21:00)
[2017-05-01] MEDS: Advair 250/50 Inhaler - 14 dose INH SCH ×2 (09:34→21:32)
[2017-05-01] MEDS: LORazepam 1mg tab ORAL PRN ×2 (10:23→19:41)
[2017-05-01 11:43] LABS: HEMATOCRIT 24.4 % (37.0-47.0); HEMOGLOBIN 7.8 G/DL (12.0-16.0); MEAN CORPUSCULAR VOLUME 97 FL (80-99); PLATELET COUNT 84 K/UL (150-450); RED BLOOD COUNT 2.52 M/UL (4.20-5.40); RED CELL DISTRIBUTION WIDTH 16.3 % (11.6-14.8); WHITE BLOOD COUNT 8.5 K/UL (4.8-10.8)
[2017-05-01 12:02] LABS: ALANINE AMINOTRANSFERASE 18 U/L (12-78); ALBUMIN 1.9 G/DL (3.4-5.0); ALBUMIN/GLOBULIN RATIO 0.5 (1.0-2.7); ALKALINE PHOSPHATASE 75 U/L (46-116); ANION GAP 7 mmol/L (5-15); ASPARTATE AMINO TRANSFERASE 27 U/L (15-37); BILIRUBIN,TOTAL 0.3 MG/DL (0.2-1.0); BLOOD UREA NITROGEN 8 mg/dL (7-18); CALCIUM 8.1 MG/DL (8.5-10.1); CARBON DIOXIDE 28 MMOL/L (21-32); CHLORIDE 100 MMOL/L (98-107); CREATININE 0.6 MG/DL (0.55-1.30); POTASSIUM 3.5 MMOL/L (3.5-5.1); SODIUM 135 MMOL/L (136-145)
--- NOTE | 2017-05-01 12:54 | Progress Note ---
DATE: 04/29/2017 SUBJECTIVE: The patient is calmer, was found in bed, still has episodes of agitation however much calmer, compliant with medication. MENTAL STATUS EXAMINATION: The patient is alert and oriented to self, confused and disoriented. Mood is agitated. Affect is flat. Thought process, there is a paucity of thought content. Thought content, no suicidal or homicidal ideations. ASSESSMENT: Bipolar disorder versus schizoaffective disorder. PLAN: 1. We will continue Depakote and Zyprexa. 2. We will continue follow and readjust the medications. Alex Guerra M.D. DR: Zay JOB#: [id number] CC:
--- NOTE | 2017-05-01 12:55 | Progress Note ---
DATE: 04/29/2017 INTERNAL MEDICINE PROGRESS NOTE SUBJECTIVE: The patient is afebrile. He has congestion. Monitor reveals rapid atrial fibrillation. PHYSICAL EXAMINATION: VITAL SIGNS: Blood pressure 113/62, respiratory rate 22. LUNGS: Coarse breath sounds. HEART: Irregularly irregular rhythm. ABDOMEN: Soft. EXTREMITIES: Trace edema. LABORATORY DATA: Cultures are positive for ESBL Klebsiella pneumonia. IMPRESSION: 1. Pneumonia. 2. Chronic obstructive pulmonary disease. 3. Paroxysmal atrial fibrillation with rapid ventricular response. 4. Hypertensive heart disease. 5. Anemia, iron deficiency and folate deficiency. PLAN: 1. Advance to IV Invanz. 2. ID consultation. 3. Continue amiodarone. 4. Continue digoxin. 5. Consider adding Cardizem if rate control remains inadequate. 6. Vitamin supplementation. 7. Recheck hemoglobin. 8. Respiratory hygiene. 9. Steroid taper. Jeremiah Harvey M.D. DR: Tristan JOB#: [id number] CC:
--- NOTE | 2017-05-01 12:56 | Progress Note ---
DATE: 04/30/2017 SUBJECTIVE: The patient is calmer, more contained. The patient still has episodes of agitation calmed down and she is still refusing PT and at times OT. MENTAL STATUS EXAMINATION: The patient is alert and oriented times self. Mood is anxious. Affect is blunted, congruent with mood. Thought process is disorganized. Thought content, no suicidal or homicidal ideation. Positive for delusions. Insight and judgment non-existent. ASSESSMENT: Bipolar disorder with psychotic features versus schizoaffective disorder. PLAN: We will continue the current medications. Alex Guerra M.D. DR: AIMEE JOB#: [id number] CC:
--- NOTE | 2017-05-01 14:17 | Diagnostic Imaging Report ---
Indication: Cough Comparison: 04/27/2017 A single view chest radiograph was obtained. Findings: Somewhat prominent pulmonary vascularity without definite CHF demonstrated. The heart is enlarged. Mild basal density is probably atelectasis although pneumonia is not excluded. Trace basilar pleural effusion suspected. Bones are osteopenic. IMPRESSION: Trace basilar effusions and basilar atelectasis and/or pneumonia suspected. Prominent pulmonary vascularity without overt CHF. Correlate clinically.
--- NOTE | 2017-05-01 18:30 | Progress Note ---
DATE: 04/30/2017 INTERNAL MEDICINE PROGRESS NOTE SUBJECTIVE: The patient is less congested. She remains on IV antibiotics for ESBL pulmonary infection with Klebsiella. OBJECTIVE: VITAL SIGNS: Blood pressure 90/61 to 133/77, heart rate 124, respiratory rate 20 to 22, the patient has temperature max of 102.6. LUNGS: Coarse breath sounds. Scattered rhonchi. HEART: Irregularly irregular rhythm. Rapid rate. Normal S1 and S2. ABDOMEN: Soft. EXTREMITIES: Trace edema. IMPRESSION: 1. Extended-spectrum beta-lactamase pneumonia. 2. Rapid atrial fibrillation. 3. Anemia iron deficiency. PLAN: IV ertapenem. Respiratory hygiene. Followup chest x-ray. Additional digitalis for rate control. Vitamin supplementation. Jeremiah Harvey M.D. DR: YOGESH JOB#: [id number] CC:
[2017-05-01] MEDS: Iron Sucrose 100 MG in NS 55 ML IV SCH (21:00)
--- NOTE | 2017-05-01 21:45 | Progress Note ---
DATE: 05/01/2017 SUBJECTIVE: The patient found asleep. He still has episodes of agitation and screaming, calmer in previous encounter. The patient has been compliant with his medications. MENTAL STATUS EXAMINATION: The patient is alert and oriented times self, disoriented to date and situation. Mood is neutral. Affect is flat. Congruent with mood. Thought process, there is a paucity of thought content. Thought content, positive for delusions. Insight and judgment is nonexistent. Cognition is impaired. ASSESSMENT: Bipolar disorder with psychotic features. PLAN: 1. We will start the patient on Zyprexa 5 mg at bedtime. 2. We will continue follow and readjust the medication. Alex Guerra M.D. DR: Zay JOB#: [id number] CC:
[2017-05-02] VITALS (11 sets, daily range): BP systolic 80–138; BP diastolic 6–93
--- NOTE | 2017-05-02 01:15 | Progress Note ---
DATE: 05/01/2017 CARDIOLOGY AND INTERNAL MEDICINE PROGRESS NOTE SUBJECTIVE: The patient has no shortness of breath, still with some cough and congestion. No nausea or vomiting. PHYSICAL EXAMINATION: VITAL SIGNS: Blood pressure 87/58, pulse 125, respiratory rate 18, afebrile. NECK: Supple. LUNGS: Few rhonchi. CARDIAC: Irregularly irregular rhythm. Normal S1 and S2. ABDOMEN: Soft. EXTREMITIES: Trace edema. LABORATORY DATA: White count 8.5, hemoglobin 7.8. Potassium 3.5. BUN 8 and creatinine 0.6. Albumin 1.9. Chest x-ray today revealed trace bibasilar pleural effusions and atelectasis with pneumonia. No overt heart failure. IMPRESSION: 1. Recovering pneumonia. 2. Chronic obstructive pulmonary disease exacerbation. 3. Folate deficiency. 4. Iron-deficiency anemia. 5. Anemia, multifactorial. 6. Atrial fibrillation with increased ventricular response. 7. Chronic diastolic congestive heart failure. 8. Klebsiella ESBL pneumonia. PLAN: PRBC transfusion if hemoglobin remains below 8 g with low blood pressure continue digitalis. Continue antimicrobial. Respiratory hygiene. Discharge planning in progress. Still attempting to locate a care home facility. Jeremiah Harvey M.D. DR: Tristan JOB#: [id number] CC:
[2017-05-02] MEDS: Heparin 5000 units/ml inj SUBQ SCH ×2 (09:00→21:03)
[2017-05-02] MEDS: Depakote 500mg tab ORAL SCH (09:42)
[2017-05-02] MEDS: Levofloxacin 500mg tab ORAL SCH (09:43)
[2017-05-02] MEDS: Advair 250/50 Inhaler - 14 dose INH SCH ×3 (09:44→22:00)
[2017-05-02] MEDS: Digoxin 0.125mg tab ORAL SCH (09:44)
--- NOTE | 2017-05-02 10:51 | Pulmonology Progress Note ---
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 and LABA/LAMA inhalers needed on discharge discharge planning impression, plan, and exam edited and reviewed in detail care discussed with RN Subjective Allergies: Coded Allergies: No Known Allergies (Unverified , 04/25/17) Subjective care reviewed mild congestion sinus tachycardia still persistent Objective Last 24 Hour Vital Signs Date Time Temp Pulse Resp B/P (MAP) Pulse Ox O2 Delivery O2 Flow Rate FiO2 05/02/17 09:44 133 05/02/17 08:00 95.9 133 16 102/64 96 Nasal Cannula 2.0 05/02/17 04:00 115 05/02/17 04:00 97.9 118 21 105/6 97 Nasal Cannula 2.0 05/02/17 00:47 98.4 05/02/17 00:00 125 05/02/17 00:00 97.9 116 20 109/70 97 Nasal Cannula 2.0 05/01/17 20:15 Nasal Cannula 2.0 28 05/01/17 20:15 97 Nasal Cannula 2.0 28 05/01/17 20:00 109 05/01/17 20:00 98.4 113 20 107/58 97 Nasal Cannula 2.0 05/01/17 16:00 113 05/01/17 16:00 97.9 125 18 87/58 98 05/01/17 14:12 128 95/59 05/01/17 12:00 97.9 125 22 84/56 98 05/01/17 12:00 122 Intake and Output 05/01/17 05/02/17 19:00 07:00 Intake Total 1630 ml 300 ml Balance 1630 ml 300 ml Intake Oral 1630 ml 300 ml # Voids 4 2 # Bowel Movements 2 1 Objective WDWN NAD reduced breath sounds bilaterally with minimal wheeze S1S2 iRR tachy without MRG NABS nontender no HSM no CCE nonfocal Microbiology Date/Time Source Procedure Growth Status 04/30/17 23:50 Stool Clostridium difficile Toxin Assay - Final Complete Laboratory Tests 05/01/17 11:30: White Blood Count 8.5, Red Blood Count 2.52L, Hemoglobin 7.8L, Hematocrit 24.4L , Mean Corpuscular Volume 97, Mean Corpuscular Hemoglobin 31.1H, Mean Corpuscular Hemoglobin Concent 32.2, Red Cell Distribution Width 16.3H, Platelet Count 84L, Mean Platelet Volume 6.4L, Neutrophils (%) (Auto) , Lymphocytes (%) (Auto) , Monocytes (%) (Auto) , Eosinophils (%) (Auto) , Basophils (%) (Auto) , Differential Total Cells Counted 100, Neutrophils % ( Manual) 78H, Lymphocytes % (Manual) 9L, Monocytes % (Manual) 7, Eosinophils % ( Manual) 0, Basophils % (Manual) 0, Band Neutrophils 6, Platelet Estimate DecreasedL, Platelet Morphology Normal, Hypochromasia 3+, Spherocytes 2+, Sodium Level 135L, Potassium Level 3.5, Chloride Level 100, Carbon Dioxide Level 28, Anion Gap 7, Blood Urea Nitrogen 8, Creatinine 0.6, Estimat Glomerular Filtration Rate > 60, Glucose Level 129H, Calcium Level 8.1L, Total Bilirubin 0.3, Aspartate Amino Transf (AST/SGOT) 27, Alanine Aminotransferase ( ALT/SGPT) 18, Alkaline Phosphatase 75, Total Protein 5.6L, Albumin 1.9L, Globulin 3.7, Albumin/Globulin Ratio 0.5L Current Medications Medications (Trade) Dose Ordered Sig/Matthieu Route PRN Reason Start Time Stop Time Status Last Admin Dose Admin Acetaminophen (Tylenol) 650 mg Q6H PRN ORAL Mild Pain/Temp > 100.5 04/26/17 18:00 05/26/17 17:59 05/01/17 23:48 Digoxin (Lanoxin) 0.125 mg DAILY ORAL 04/27/17 09:00 05/27/17 08:59 05/02/17 09:44 Divalproex Sodium (Depakote) 500 mg DAILY ORAL 04/29/17 09:00 05/29/17 08:59 05/02/17 09:42 Divalproex Sodium (Depakote) 750 mg BEDTIME ORAL 04/28/17 21:00 05/28/17 20:59 05/01/17 21:42 Folic Acid (Folate) 1 mg DAILY ORAL 04/27/17 11:00 05/27/17 10:59 05/02/17 09:42 Gabapentin (Neurontin) 300 mg BEDTIME ORAL 05/02/17 21:00 06/01/17 20:59 Gabapentin (Neurontin) 300 mg NOW ORAL 05/02/17 04:00 06/01/17 03:59 05/02/17 04:19 Heparin Sodium (Porcine) (Heparin 5000 units/ml) 5,000 units EVERY 12 HOURS SUBQ 04/25/17 21:00 05/25/17 20:59 04/30/17 08:19 Levofloxacin (Levaquin) 500 mg DAILY ORAL 04/28/17 09:00 05/05/17 08:59 05/02/17 09:43 Lorazepam (Ativan) 1 mg Q8HR PRN ORAL For Anxiety 04/26/17 23:00 05/03/17 22:59 05/01/17 19:41 Olanzapine (ZyPREXA) 5 mg BEDTIME ORAL 05/01/17 21:00 05/31/17 20:59 05/01/17 21:41 Olanzapine (ZyPREXA) 10 mg HSPRN PRN ORAL Agitation 04/27/17 12:30 05/27/17 12:29 05/01/17 23:47 Ondansetron HCl (Zofran) 4 mg Q6H PRN IVP Nausea & Vomiting 04/26/17 17:00 05/26/17 16:59 05/01/17 21:42 Prednisone (predniSONE) 20 mg DAILY ORAL 04/28/17 09:00 05/28/17 08:59 05/02/17 09:43 Salmeterol Xinafoate/ Fluticasone (Advair 250/50 Diskus) 1 puffs BIDRT INH 04/28/17 10:00 05/28/17 09:59 05/02/17 09:44 Tiotropium [place] (Spiriva Inhaler) 1 puff DAILY@1000 INH 04/28/17 10:00 05/28/17 09:59 05/02/17 09:46 SPENCER GUERRERO May 02, 2017 10:51
[2017-05-02] MEDS ORDERED: Ertapenem 1gm in NS 55ml IVPB SCH (14:00)
[2017-05-02] MEDS ORDERED: dilTIAZem HCl 50mg/10ml Inj IVP ONE (19:15)
[2017-05-02] MEDS ORDERED: LORazepam 1mg tab ORAL PRN (22:00)
[2017-05-02] MEDS ORDERED: dilTIAZem HCl 25mg/5ml Inj IVP ONE (23:15)
[2017-05-03] VITALS (23 sets, daily range): BP systolic 79–137; BP diastolic 45–87
[2017-05-03] MEDS: Depakote 500mg tab ORAL SCH (08:31)
[2017-05-03] MEDS: Digoxin 0.125mg tab ORAL SCH (08:32)
[2017-05-03] MEDS ORDERED: Heparin 5000 units/ml inj SUBQ SCH (09:00)
[2017-05-03] MEDS ORDERED: Levofloxacin 500mg tab ORAL SCH (09:00)
[2017-05-03] MEDS ORDERED: Tubing IV Secondary IV ONE (10:22)
[2017-05-03] MEDS: Advair 250/50 Inhaler - 14 dose INH SCH ×2 (10:42→21:00)
[2017-05-03 12:58] LABS: HEMATOCRIT 23.9 % (37.0-47.0); HEMOGLOBIN 7.8 G/DL (12.0-16.0); MEAN CORPUSCULAR VOLUME 96 FL (80-99); PLATELET COUNT 46 K/UL (150-450); RED BLOOD COUNT 2.49 M/UL (4.20-5.40); RED CELL DISTRIBUTION WIDTH 16.1 % (11.6-14.8)
[2017-05-03] MEDS ORDERED: Ertapenem 1 GM in NS 55 ML IVPB SCH (14:00)
--- NOTE | 2017-05-03 16:32 | Pulmonology Progress Note ---
Assessment/Plan Assessment/Plan IMPRESSION bronchitis COPD with exacerbation shortness of breath hypertension anemia atrial fib SVT with RVR PLAN ICU care rate control cards noted respiratory care oxygen supportive care not ready for dc custodial steroid and LABA/LAMA inhalers needed on discharge and when able to inhale discharge on hold impression, plan, and exam edited and reviewed in detail care discussed with RN Subjective ROS Limited/Unobtainable: Yes Allergies: Coded Allergies: No Known Allergies (Unverified , 04/25/17) Subjective care reviewed transferred to ICU significant SVT noted seems more altered Objective Last 24 Hour Vital Signs Date Time Temp Pulse Resp B/P (MAP) Pulse Ox O2 Delivery O2 Flow Rate FiO2 05/03/17 16:00 98.1 116 19 95/71 100 Nasal Cannula 2.0 05/03/17 16:00 116 05/03/17 15:00 107 21 94/63 100 Nasal Cannula 2.0 05/03/17 14:00 117 18 95/65 100 Nasal Cannula 2.0 05/03/17 13:00 102 12 91/64 100 Nasal Cannula 2.0 05/03/17 12:00 105 05/03/17 12:00 97.8 105 11 91/53 100 Nasal Cannula 2.0 05/03/17 11:00 116 15 88/53 100 Nasal Cannula 2.0 05/03/17 10:00 122 13 90/62 99 Nasal Cannula 2.0 05/03/17 09:00 129 15 89/55 100 Nasal Cannula 2.0 05/03/17 08:32 140 05/03/17 08:00 98.8 140 19 100/58 100 Nasal Cannula 2.0 05/03/17 08:00 140 05/03/17 07:56 Nasal Cannula 2.0 97 05/03/17 07:55 97 Nasal Cannula 2.0 05/03/17 07:00 131 28 105/68 100 Nasal Cannula 2.0 05/03/17 05:00 134 22 96/70 99 Nasal Cannula 2.0 05/03/17 04:00 98.2 130 20 113/66 100 Nasal Cannula 2.0 05/03/17 04:00 130 05/03/17 03:00 117 17 95/73 100 Nasal Cannula 2.0 05/03/17 02:00 120 18 108/63 100 Nasal Cannula 2.0 05/03/17 01:00 122 17 79/45 100 Nasal Cannula 2.0 05/03/17 00:00 98.9 133 20 92/55 100 Nasal Cannula 2.0 05/03/17 00:00 133 05/02/17 23:18 133 105/70 05/02/17 23:00 144 25 105/70 100 Non-Rebreather 100 05/02/17 22:00 140 15 95/61 100 Non-Rebreather 100 05/02/17 21:00 147 27 92/53 100 Non-Rebreather 100 05/02/17 20:00 128 05/02/17 20:00 128 15 80/52 100 Non-Rebreather 100 05/02/17 19:30 148 13 138/93 100 Non-Rebreather 100 05/02/17 19:15 182 138/93 05/02/17 19:10 98.8 180 33 84/52 92 Room Air 05/02/17 19:10 180 05/02/17 19:00 98 Non-Rebreather 15.0 100 05/02/17 19:00 Non-Rebreather 15.0 100 Intake and Output 05/02/17 05/03/17 19:00 07:00 Intake Total 55 ml 100 ml Balance 55 ml 100 ml Intake Oral 0 ml 100 ml IV Total 55 ml # Voids 2 4 Objective WDWN NAD reduced breath sounds bilaterally with minimal wheeze S1S2 rate controlled without MRG NABS nontender no HSM no CCE altered Microbiology Date/Time Source Procedure Growth Status 04/30/17 23:50 Stool Clostridium difficile Toxin Assay - Final Complete Laboratory Tests 05/02/17 19:04: Arterial Blood pH 7.544H, Arterial Blood Partial Pressure CO2 29.5L, Arterial Blood Partial Pressure O2 151.1H, Arterial Blood HCO3 24.9, Arterial Blood Oxygen Saturation 98.5H, Arterial Blood Base Excess 2.8, Itz Test Positive 05/03/17 12:45: White Blood Count 12.0H, Red Blood Count 2.49L, Hemoglobin 7.8L, Hematocrit 23.9L, Mean Corpuscular Volume 96, Mean Corpuscular Hemoglobin 31.3H, Mean Corpuscular Hemoglobin Concent 32.6, Red Cell Distribution Width 16.1H, Platelet Count 46L, Mean Platelet Volume 10.0, Neutrophils (%) (Auto) , Lymphocytes (%) (Auto) , Monocytes (%) (Auto) , Eosinophils (%) (Auto) , Basophils (%) (Auto) , Differential Total Cells Counted 100, Neutrophils % ( Manual) 79H, Lymphocytes % (Manual) 6L, Monocytes % (Manual) 10, Eosinophils % ( Manual) 0, Basophils % (Manual) 0, Band Neutrophils 5, Platelet Estimate DecreasedL, Platelet Morphology Normal, Hypochromasia 1+, Anisocytosis 1+ Current Medications Medications (Trade) Dose Ordered Sig/Matthieu Route PRN Reason Start Time Stop Time Status Last Admin Dose Admin Acetaminophen (Tylenol) 650 mg Q6H PRN ORAL Mild Pain/Temp > 100.5 05/02/17 21:34 06/01/17 21:33 05/03/17 08:53 Digoxin (Lanoxin) 0.125 mg DAILY ORAL 05/03/17 09:00 05/27/17 08:59 05/03/17 08:32 Divalproex Sodium (Depakote) 500 mg DAILY ORAL 05/03/17 09:00 05/29/17 08:59 05/03/17 08:31 Divalproex Sodium (Depakote) 750 mg BEDTIME ORAL 05/03/17 21:00 05/28/17 20:59 Folic Acid (Folate) 1 mg DAILY ORAL 05/03/17 09:00 05/27/17 10:59 05/03/17 08:32 Gabapentin (Neurontin) 300 mg BEDTIME ORAL 05/03/17 21:00 06/01/17 20:59 Lorazepam (Ativan) 1 mg Q8HR PRN ORAL For Anxiety 05/02/17 22:00 05/03/17 22:59 05/03/17 08:53 Olanzapine (ZyPREXA) 5 mg BEDTIME ORAL 05/03/17 21:00 05/31/17 20:59 Olanzapine (ZyPREXA) 10 mg HSPRN PRN ORAL Agitation 05/03/17 12:30 05/27/17 12:29 Ondansetron HCl (Zofran) 4 mg Q6H PRN IVP Nausea & Vomiting 05/02/17 23:00 05/26/17 16:59 Prednisone (predniSONE) 10 mg DAILY ORAL 05/04/17 09:00 06/03/17 08:59 UNV Salmeterol Xinafoate/ Fluticasone (Advair 250/50 Diskus) 1 puffs BIDRT INH 05/02/17 22:00 05/28/17 09:59 05/03/17 10:42 Tiotropium [place] (Spiriva Inhaler) 1 puff DAILY@1000 INH 05/03/17 10:00 05/28/17 09:59 05/03/17 10:41 SPENCER GUERRERO May 03, 2017 16:32
[2017-05-03] MEDS: Ertapenem 1gm in NS 55ml IVPB SCH (17:24)
--- NOTE | 2017-05-03 23:05 | Progress Note ---
DATE: 05/02/2017 SUBJECTIVE: The patient was found in bed, asleep, no acute distress. Calmer, behaviors are more manageable; however, still has episodes of agitation, disorganized and confused. MENTAL STATUS EXAMINATION: The patient is asleep, arousable, confused, and disoriented. Mood is agitated. Affect is constricted. Congruent with mood and appropriate. Thought process is disorganized. Thought content, positive for persecutory delusions. No suicidal or homicidal ideations. Also, positive for hallucinations. Insight and judgement is not existing. Cognition including memory is impaired. ASSESSMENT: 1. Bipolar disorder with psychotic features versus schizoaffective disorder, bipolar type. 2. Encephalopathy. 3. Agitation. PLAN: 1. We will continue the Depakote and Zyprexa. 2. We will continue to follow and readjust the medications. 3. We discussed the case with Dr. Harvey. Alex Guerra M.D. DR: Nadya JOB#: [id number] CC:
--- NOTE | 2017-05-03 23:05 | Progress Note ---
DATE: 05/02/2017 INTERNAL MEDICINE PROGRESS NOTE SUBJECTIVE: The patient is febrile to 103 today and is having chills. The patient was noted to have positive sputum cultures several days ago with a resistant strain of Klebsiella pneumoniae. Orders were put in for ertapenem and the first dose was given. The case was discussed with the Infectious Disease bank consultant, Dr. Gonzales, by telephone at that time, who has subsequently seen the patient. Pharmacy has had subsequently discontinued the medication and no doses were given other than the first dose. No phone calls were received by me from anyone in the facility regarding this matter. OBJECTIVE: VITAL SIGNS: Blood pressure is 102/64, pulse 132, respiratory rate 16, and temperature 103.5. LUNGS: Coarse breath sounds. Scattered rhonchi. HEART: Irregularly irregular rhythm. Rapid rate. Normal S1 and S2. EXTREMITIES: Without edema. IMPRESSION: 1. Multidrug-resistant pneumonia. 2. Chronic obstructive pulmonary disease. 3. Atrial fibrillation with rapid ventricular response. PLAN: The patient will have blood cultures obtained. Antibiotics have been urgently reordered. Incident reports have been initiated. The patient will be continued on digitalis for rate control and she will be given oxygen and respiratory hygiene. The patient will be transferred to higher level of care in the hospital should that be necessary. Jeremiah Harvey M.D. DR: Ayad JOB#: [id number] CC:
--- NOTE | 2017-05-03 23:06 | Consultation ---
DATE OF CONSULTATION: 05/03/2017 INFECTIOUS DISEASE CONSULTATION This consult is for coverage of Dr. Gonzales. PRIMARY ATTENDING PHYSICIAN: Jeremiah Harvey M.D. REASON FOR CONSULT: Chronic obstructive pulmonary disease exacerbation and pneumonia. HISTORY OF PRESENT ILLNESS: This is a 66-year-old white female, admitted on 04/25/2017 with shortness of breath, congestion, weakness, and coughing. She has history of chronic obstructive pulmonary disease and recent hospitalization in another facility. Very poor historian. Sputum culture from the patient grew ESBL Klebsiella. PAST MEDICAL HISTORY: Significant for chronic obstructive pulmonary disease, anemia, history of cocaine abuse, and bipolar disorder. MEDICATIONS: Getting Depakote, gabapentin with Effexor, ertapenem, olanzapine, Spiriva inhaler, digoxin, Depakote, folic acid, heparin, Levaquin, prednisone, Zofran, lorazepam, Advair Diskus, and Tylenol. ALLERGIES: No known drug allergies. SOCIAL HISTORY: Single. No other history obtainable. PHYSICAL EXAMINATION: VITAL SIGNS: Temperature 98.8, pulse 140, and blood pressure 100/58. GENERAL APPEARANCE: In ICU. Verbal. She states that she has pain. HEAD AND NECK: No oral lesion. Poor dentition. HEART: Irregularly irregular. Tachycardic. LUNGS: Few rhonchi. Decreased expansion. ABDOMEN: Soft and nontender. EXTREMITY: No edema. She has muscle atrophy. She has some bruises and superficial skin. LABORATORY DATA: WBC 8.5, hemoglobin 7.8, hematocrit 24.4, and platelets is 84,000. Sodium 135, potassium 3.5, chloride 100, bicarb 28, BUN 8, creatinine 0.6, and glucose 129. Albumin is 1.9. Sputum culture grew Klebsiella ESBL. C. diff toxin was negative. VRE screening was positive. MRSA screen negative. Influenza test was negative. Chest x-ray showed atelectasis or pneumonia in basilar area. IMPRESSION: Chronic obstructive pulmonary disease exacerbation, may have also pneumonia. She has atrial fibrillation with rapid ventricular rate and anemia. Has bipolar disorder. RECOMMENDATION: We will continue with Levaquin. Increase the dose to 750 mg daily and discontinue ertapenem. At the end of my exam, I thank Dr. Harvey and Dr. Flood for involving me in the care of this patient. Reji An M.D. DR: KARL JOB#: [id number] CC: TIM
[2017-05-04] VITALS (24 sets, daily range): BP systolic 87–143; BP diastolic 51–93
[2017-05-04] MEDS ORDERED: Hydromorphone 0.5mg/0.5ml inj ONE (00:13)
--- NOTE | 2017-05-04 04:00 | Progress Note ---
DATE: 05/03/2017 CARDIOLOGY PROGRESS NOTE SUBJECTIVE: The patient still remains in the intensive care unit. Blood pressure is marginal. She continues to have episodes of rapid atrial fibrillation. OBJECTIVE: VITAL SIGNS: Blood pressure 95/71, heart rate 116, respiratory rate 19, she is afebrile. LUNGS: Coarse breath sounds. Scattered rhonchi. HEART: Irregularly irregular rhythm. Normal S1, S2. ABDOMEN: Soft. No edema. IMPRESSION: 1. Chronic obstructive pulmonary disease with exacerbation. 2. Multidrug-resistant Klebsiella pneumonia. 3. Anemia, folate and iron deficiency. 4. Paroxysmal atrial fibrillation with rapid ventricular response. 5. Low range blood pressure. PLAN: Continued antimicrobials. Respiratory hygiene. Transfuse 1 unit packed red blood cells. Continue digitalis and Cardizem for rate control. Follow up laboratory studies. Steroid taper as able. Jeremiah Harvey M.D. DR: Umm JOB#: [id number] CC:
[2017-05-04 06:10] LABS: HEMOGLOBIN 10.5 G/DL (12.0-16.0); MEAN CORPUSCULAR VOLUME 93 FL (80-99); PLATELET COUNT 46 K/UL (150-450); RED BLOOD COUNT 3.34 M/UL (4.20-5.40); RED CELL DISTRIBUTION WIDTH 15.9 % (11.6-14.8)
[2017-05-04 06:30] LABS: ALANINE AMINOTRANSFERASE 22 U/L (12-78); ALBUMIN 1.9 G/DL (3.4-5.0); ALBUMIN/GLOBULIN RATIO 0.5 (1.0-2.7); ALKALINE PHOSPHATASE 95 U/L (46-116); ANION GAP 7 mmol/L (5-15); ASPARTATE AMINO TRANSFERASE 32 U/L (15-37); BILIRUBIN,TOTAL 0.6 MG/DL (0.2-1.0); BLOOD UREA NITROGEN 13 mg/dL (7-18); CALCIUM 8.2 MG/DL (8.5-10.1); CARBON DIOXIDE 27 MMOL/L (21-32); CHLORIDE 105 MMOL/L (98-107); CREATININE 0.7 MG/DL (0.55-1.30); POTASSIUM 3.7 MMOL/L (3.5-5.1); SODIUM 139 MMOL/L (136-145)
[2017-05-04] MEDS: Depakote 500mg tab ORAL SCH (08:14)
[2017-05-04] MEDS: Digoxin 0.125mg tab ORAL SCH (08:16)
--- NOTE | 2017-05-04 08:48 | Pulmonology Progress Note ---
Assessment/Plan Assessment/Plan IMPRESSION bronchitis COPD with exacerbation shortness of breath hypertension anemia atrial fib SVT with RVR PLAN ICU care rate control cards noted respiratory care oxygen supportive care fci steroid and LABA/LAMA inhalers needed on discharge and when able to inhale discharge on hold impression, plan, and exam edited and reviewed in detail care discussed with RN Subjective ROS Limited/Unobtainable: Yes Allergies: Coded Allergies: No Known Allergies (Unverified , 04/25/17) Subjective care reviewed in ICU significant SVT noted but stable currently no distress Objective Last 24 Hour Vital Signs Date Time Temp Pulse Resp B/P (MAP) Pulse Ox O2 Delivery O2 Flow Rate FiO2 05/04/17 08:16 132 05/04/17 08:00 133 22 106/71 90 Nasal Cannula 2.0 05/04/17 07:00 98.7 120 22 99/57 98 Nasal Cannula 2.0 05/04/17 06:00 131 25 117/70 99 Nasal Cannula 2.0 05/04/17 05:00 132 16 90/58 99 Nasal Cannula 2.0 05/04/17 04:00 97.8 135 26 106/61 98 Nasal Cannula 2.0 05/04/17 04:00 135 05/04/17 03:00 132 23 99/57 99 Nasal Cannula 2.0 05/04/17 02:00 97.9 128 15 116/73 100 Nasal Cannula 2.0 05/04/17 01:00 132 25 102/60 100 Nasal Cannula 2.0 05/04/17 00:00 98.3 131 25 103/59 100 Nasal Cannula 2.0 05/04/17 00:00 131 05/03/17 23:00 134 23 106/65 99 Nasal Cannula 2.0 05/03/17 22:00 126 23 102/58 100 Nasal Cannula 2.0 05/03/17 21:00 98.7 136 22 93/52 98 Nasal Cannula 2.0 05/03/17 20:00 146 05/03/17 20:00 146 22 137/87 98 Nasal Cannula 2.0 05/03/17 19:31 Nasal Cannula 2.0 28 05/03/17 19:30 95 Nasal Cannula 2.0 28 05/03/17 19:00 137 15 105/80 95 Nasal Cannula 2.0 05/03/17 18:00 136 22 100/61 99 Nasal Cannula 2.0 05/03/17 17:00 120 22 91/56 96 Nasal Cannula 2.0 05/03/17 16:00 98.1 116 19 95/71 100 Nasal Cannula 2.0 05/03/17 16:00 116 05/03/17 15:00 107 21 94/63 100 Nasal Cannula 2.0 05/03/17 14:00 117 18 95/65 100 Nasal Cannula 2.0 05/03/17 13:00 102 12 91/64 100 Nasal Cannula 2.0 05/03/17 12:00 105 05/03/17 12:00 97.8 105 11 91/53 100 Nasal Cannula 2.0 05/03/17 11:00 116 15 88/53 100 Nasal Cannula 2.0 05/03/17 10:00 122 13 90/62 99 Nasal Cannula 2.0 05/03/17 09:00 129 15 89/55 100 Nasal Cannula 2.0 Intake and Output 05/03/17 05/04/17 19:00 07:00 Intake Total 475 ml 680 ml Output Total 0 ml 202 ml Balance 475 ml 478 ml Intake Oral 420 ml 80 ml IV Total 55 ml Blood Product 600 ml Output Urine Total 0 ml 202 ml # Voids 6 2 # Bowel Movements 5 3 Objective WDWN NAD reduced breath sounds bilaterally with minimal wheeze S1S2 tachy without MRG NABS nontender no HSM no CCE altered Laboratory Tests 05/03/17 12:45: White Blood Count 12.0H, Red Blood Count 2.49L, Hemoglobin 7.8L, Hematocrit 23.9L, Mean Corpuscular Volume 96, Mean Corpuscular Hemoglobin 31.3H, Mean Corpuscular Hemoglobin Concent 32.6, Red Cell Distribution Width 16.1H, Platelet Count 46L, Mean Platelet Volume 10.0, Neutrophils (%) (Auto) , Lymphocytes (%) (Auto) , Monocytes (%) (Auto) , Eosinophils (%) (Auto) , Basophils (%) (Auto) , Differential Total Cells Counted 100, Neutrophils % ( Manual) 79H, Lymphocytes % (Manual) 6L, Monocytes % (Manual) 10, Eosinophils % ( Manual) 0, Basophils % (Manual) 0, Band Neutrophils 5, Platelet Estimate DecreasedL, Platelet Morphology Normal, Hypochromasia 1+, Anisocytosis 1+ 05/04/17 05:00: White Blood Count 12.0H, Red Blood Count 3.34L, Hemoglobin 10.5#L, Hematocrit 31.0L, Mean Corpuscular Volume 93, Mean Corpuscular Hemoglobin 31.5H, Mean Corpuscular Hemoglobin Concent 34.0, Red Cell Distribution Width 15.9H, Platelet Count 46L, Mean Platelet Volume 7.7, Neutrophils (%) (Auto) , Lymphocytes (%) (Auto) , Monocytes (%) (Auto) , Eosinophils (%) (Auto) , Basophils (%) (Auto) , Neutrophils % (Manual) [Pending], Lymphocytes % (Manual) [Pending], Platelet Estimate [Pending], Platelet Morphology [Pending], Sodium Level 139, Potassium Level 3.7, Chloride Level 105, Carbon Dioxide Level 27, Anion Gap 7, Blood Urea Nitrogen 13, Creatinine 0.7, Estimat Glomerular Filtration Rate > 60, Glucose Level 94, Calcium Level 8.2L, Magnesium Level 1.5L , Total Bilirubin 0.6, Aspartate Amino Transf (AST/SGOT) 32, Alanine Aminotransferase (ALT/SGPT) 22, Alkaline Phosphatase 95, Total Protein 5.8L, Albumin 1.9L, Globulin 3.9, Albumin/Globulin Ratio 0.5L, Digoxin Level 0.7L Current Medications Medications (Trade) Dose Ordered Sig/Matthieu Route PRN Reason Start Time Stop Time Status Last Admin Dose Admin Acetaminophen (Tylenol) 650 mg Q6H PRN ORAL Mild Pain/Temp > 100.5 05/02/17 21:34 06/01/17 21:33 05/04/17 08:15 Digoxin (Lanoxin) 0.125 mg DAILY ORAL 05/03/17 09:00 05/27/17 08:59 05/04/17 08:16 Divalproex Sodium (Depakote) 500 mg DAILY ORAL 05/03/17 09:00 05/29/17 08:59 05/04/17 08:14 Divalproex Sodium (Depakote) 750 mg BEDTIME ORAL 05/03/17 21:00 05/28/17 20:59 05/03/17 20:54 Ertapenem 1 gm/ Sodium Chloride 55 ml @ 110 mls/hr Q24H IVPB 05/03/17 17:00 05/08/17 16:59 05/03/17 17:24 Folic Acid (Folate) 1 mg DAILY ORAL 05/03/17 09:00 05/27/17 10:59 05/04/17 08:14 Gabapentin (Neurontin) 300 mg BEDTIME ORAL 05/03/17 21:00 06/01/17 20:59 05/03/17 20:54 Olanzapine (ZyPREXA) 5 mg BEDTIME ORAL 05/03/17 21:00 05/31/17 20:59 05/03/17 20:54 Olanzapine (ZyPREXA) 10 mg HSPRN PRN ORAL Agitation 05/03/17 12:30 05/27/17 12:29 Ondansetron HCl (Zofran) 4 mg Q6H PRN IVP Nausea & Vomiting 05/02/17 23:00 05/26/17 16:59 Prednisone (predniSONE) 10 mg DAILY ORAL 05/04/17 09:00 06/03/17 08:59 05/04/17 08:16 Salmeterol Xinafoate/ Fluticasone (Advair 250/50 Diskus) 1 puffs BIDRT INH 05/02/17 22:00 05/28/17 09:59 05/03/17 21:00 Tiotropium [place] (Spiriva Inhaler) 1 puff DAILY@1000 INH 05/03/17 10:00 05/28/17 09:59 05/03/17 10:41 SPENCER GUERRERO May 04, 2017 08:48
[2017-05-04] MEDS: Advair 250/50 Inhaler - 14 dose INH SCH ×2 (09:08→22:00)
--- NOTE | 2017-05-04 09:45 | Infectious Diseases Prog Note ---
Assessment/Plan Assessment/Plan A; COPD exacerbation Atrial fibrillation with RVR Anemia Bipolar disorder P; Continue Ertapenem Subjective ROS Limited/Unobtainable: Yes Respiratory: Reports: dry cough Cardiovascular: Reports: no symptoms Gastrointestinal/Abdominal: Reports: no symptoms Neurologic: Reports: confusion, other - has sitter Allergies: Coded Allergies: No Known Allergies (Unverified , 04/25/17) Objective Vital Signs Last 24 Hour Vital Signs Date Time Temp Pulse Resp B/P (MAP) Pulse Ox O2 Delivery O2 Flow Rate FiO2 05/04/17 09:14 98.6 05/04/17 09:00 141 05/04/17 09:00 79 13 106/71 99 05/04/17 08:16 132 05/04/17 08:00 133 22 106/71 90 Nasal Cannula 2.0 05/04/17 07:00 98.7 120 22 99/57 98 Nasal Cannula 2.0 05/04/17 06:00 131 25 117/70 99 Nasal Cannula 2.0 05/04/17 05:00 132 16 90/58 99 Nasal Cannula 2.0 05/04/17 04:00 97.8 135 26 106/61 98 Nasal Cannula 2.0 05/04/17 04:00 135 05/04/17 03:00 132 23 99/57 99 Nasal Cannula 2.0 05/04/17 02:00 97.9 128 15 116/73 100 Nasal Cannula 2.0 05/04/17 01:00 132 25 102/60 100 Nasal Cannula 2.0 05/04/17 00:00 98.3 131 25 103/59 100 Nasal Cannula 2.0 05/04/17 00:00 131 05/03/17 23:00 134 23 106/65 99 Nasal Cannula 2.0 05/03/17 22:00 126 23 102/58 100 Nasal Cannula 2.0 05/03/17 21:00 98.7 136 22 93/52 98 Nasal Cannula 2.0 05/03/17 20:00 146 05/03/17 20:00 146 22 137/87 98 Nasal Cannula 2.0 05/03/17 19:31 Nasal Cannula 2.0 28 05/03/17 19:30 95 Nasal Cannula 2.0 28 05/03/17 19:00 137 15 105/80 95 Nasal Cannula 2.0 05/03/17 18:00 136 22 100/61 99 Nasal Cannula 2.0 05/03/17 17:00 120 22 91/56 96 Nasal Cannula 2.0 05/03/17 16:00 98.1 116 19 95/71 100 Nasal Cannula 2.0 05/03/17 16:00 116 05/03/17 15:00 107 21 94/63 100 Nasal Cannula 2.0 05/03/17 14:00 117 18 95/65 100 Nasal Cannula 2.0 05/03/17 13:00 102 12 91/64 100 Nasal Cannula 2.0 05/03/17 12:00 105 05/03/17 12:00 97.8 105 11 91/53 100 Nasal Cannula 2.0 05/03/17 11:00 116 15 88/53 100 Nasal Cannula 2.0 05/03/17 10:00 122 13 90/62 99 Nasal Cannula 2.0 Height (Feet): 5 Height (Inches): 0.00 Weight (Pounds): 106 HEENT: mucous membranes moist Respiratory/Chest: decreased breath sounds Cardiovascular: tachycardia Abdomen: soft, non tender Extremities: no edema Neurologic/Psychiatric: alert, responsive Laboratory Tests Test 05/03/17 12:45 05/04/17 05:00 White Blood Count 12.0 K/UL (4.8-10.8) H 12.0 K/UL (4.8-10.8) H Red Blood Count 2.49 M/UL (4.20-5.40) L 3.34 M/UL (4.20-5.40) L Hemoglobin 7.8 G/DL (12.0-16.0) L 10.5 G/DL (12.0-16.0) #L Hematocrit 23.9 % (37.0-47.0) L 31.0 % (37.0-47.0) L Mean Corpuscular Volume 96 FL (80-99) 93 FL (80-99) Mean Corpuscular Hemoglobin 31.3 PG (27.0-31.0) H 31.5 PG (27.0-31.0) H Mean Corpuscular Hemoglobin Concent 32.6 G/DL (32.0-36.0) 34.0 G/DL (32.0-36.0) Red Cell Distribution Width 16.1 % (11.6-14.8) H 15.9 % (11.6-14.8) H Platelet Count 46 K/UL (150-450) L 46 K/UL (150-450) L Mean Platelet Volume 10.0 FL (6.5-10.1) 7.7 FL (6.5-10.1) Neutrophils (%) (Auto) % (45.0-75.0) % (45.0-75.0) Lymphocytes (%) (Auto) % (20.0-45.0) % (20.0-45.0) Monocytes (%) (Auto) % (1.0-10.0) % (1.0-10.0) Eosinophils (%) (Auto) % (0.0-3.0) % (0.0-3.0) Basophils (%) (Auto) % (0.0-2.0) % (0.0-2.0) Differential Total Cells Counted 100 100 Neutrophils % (Manual) 79 % (45-75) H 88 % (45-75) H Lymphocytes % (Manual) 6 % (20-45) L 5 % (20-45) L Monocytes % (Manual) 10 % (1-10) 4 % (1-10) Eosinophils % (Manual) 0 % (0-3) 0 % (0-3) Basophils % (Manual) 0 % (0-2) 0 % (0-2) Band Neutrophils 5 % (0-8) 3 % (0-8) Platelet Estimate Decreased L Decreased L Platelet Morphology Normal Normal Hypochromasia 1+ Anisocytosis 1+ Sodium Level 139 MMOL/L (136-145) Potassium Level 3.7 MMOL/L (3.5-5.1) Chloride Level 105 MMOL/L (98-107) Carbon Dioxide Level 27 MMOL/L (21-32) Anion Gap 7 mmol/L (5-15) Blood Urea Nitrogen 13 mg/dL (7-18) Creatinine 0.7 MG/DL (0.55-1.30) Estimat Glomerular Filtration Rate > 60 mL/min (>60) Glucose Level 94 MG/DL (74-106) Calcium Level 8.2 MG/DL (8.5-10.1) L Magnesium Level 1.5 MG/DL (1.8-2.4) L Total Bilirubin 0.6 MG/DL (0.2-1.0) Aspartate Amino Transf (AST/SGOT) 32 U/L (15-37) Alanine Aminotransferase (ALT/SGPT) 22 U/L (12-78) Alkaline Phosphatase 95 U/L (46-116) Total Protein 5.8 G/DL (6.4-8.2) L Albumin 1.9 G/DL (3.4-5.0) L Globulin 3.9 g/dL Albumin/Globulin Ratio 0.5 (1.0-2.7) L Digoxin Level 0.7 NG/ML (0.9-2.0) L Current Medications Medications (Trade) Dose Ordered Sig/Matthieu Route PRN Reason Start Time Stop Time Status Last Admin Dose Admin Acetaminophen (Tylenol) 650 mg Q6H PRN ORAL Mild Pain/Temp > 100.5 05/02/17 21:34 06/01/17 21:33 05/04/17 08:15 Digoxin (Lanoxin) 0.125 mg DAILY ORAL 05/03/17 09:00 05/27/17 08:59 05/04/17 08:16 Divalproex Sodium (Depakote) 500 mg DAILY ORAL 05/03/17 09:00 05/29/17 08:59 05/04/17 08:14 Divalproex Sodium (Depakote) 750 mg BEDTIME ORAL 05/03/17 21:00 05/28/17 20:59 05/03/17 20:54 Ertapenem 1 gm/ Sodium Chloride 55 ml @ 110 mls/hr Q24H IVPB 05/03/17 17:00 05/08/17 16:59 05/03/17 17:24 Folic Acid (Folate) 1 mg DAILY ORAL 05/03/17 09:00 05/27/17 10:59 05/04/17 08:14 Gabapentin (Neurontin) 300 mg BEDTIME ORAL 05/03/17 21:00 06/01/17 20:59 05/03/17 20:54 Olanzapine (ZyPREXA) 5 mg BEDTIME ORAL 05/03/17 21:00 05/31/17 20:59 05/03/17 20:54 Olanzapine (ZyPREXA) 10 mg HSPRN PRN ORAL Agitation 05/03/17 12:30 05/27/17 12:29 Ondansetron HCl (Zofran) 4 mg Q6H PRN IVP Nausea & Vomiting 05/02/17 23:00 05/26/17 16:59 Prednisone (predniSONE) 10 mg DAILY ORAL 05/04/17 09:00 06/03/17 08:59 05/04/17 08:16 Salmeterol Xinafoate/ Fluticasone (Advair 250/50 Diskus) 1 puffs BIDRT INH 05/02/17 22:00 05/28/17 09:59 05/04/17 09:08 Tiotropium [place] (Spiriva Inhaler) 1 puff DAILY@1000 INH 05/03/17 10:00 05/28/17 09:59 05/04/17 09:07 MINH GREENBERG May 04, 2017 09:45
--- NOTE | 2017-05-04 13:54 | Cardiology Report ---
APPROVED REPORT EKG Measurement Heart [id number] Atrial fibrillation Right superior axis deviation Right ventricular hypertrophy Anteroseptal infarct, age undetermined Abnormal ECG
--- NOTE | 2017-05-04 15:21 | Diagnostic Imaging Report ---
Indication: Shortness of breath Technique: One view of the chest Comparison: May 01, 2017 Findings: There is increased pleural fluid on the left. There is persistent right basilar atelectasis and consolidation. There may be decreased pleural fluid on the right There is new left perihilar atelectasis. The heart remains enlarged Impression: Increased left-sided pleural effusion Possibly decreased right pleural fluid Persistent right basilar atelectasis and consolidation New left perihilar atelectasis, over 3 days
[2017-05-04] MEDS: Ertapenem 1gm in NS 55ml IVPB SCH (16:36)
[2017-05-04] MEDS ORDERED: Tubing IV Blood Pump IV ONE (19:35)
[2017-05-04] MEDS ORDERED: Tubing IV Secondary IV ONE (19:35)
[2017-05-04] MEDS ORDERED: NS 275ml ONE (19:35)
--- NOTE | 2017-05-04 21:15 | Progress Note ---
DATE: 05/04/2017 SUBJECTIVE: The patient is awake and alert. Less agitated. Still confused and is unable to provide any history. Poor insight and judgment into her mental condition with cognitive impairment. MENTAL STATUS EXAMINATION: The patient is alert and oriented to time self, disoriented, and confused. Mood is anxious. Affect is blunted. Congruent with mood. Thought process is disorganized. Thought content, no suicidal or homicidal ideation. Positive for delusions. Insight and judgment is impaired. Cognition is impaired specifically memory. Insight and judgment non-existent. ASSESSMENT: 1. Bipolar disorder. 2. Encephalopathy. 3. Chronic obstructive pulmonary disease with exacerbation . PLAN: 1. We will continue the Depakote. 2. We will continue olanzapine. 3. We will continue to follow. Alex Guerra M.D. DR: JOSUE JOB#: [id number] CC:
[2017-05-05] VITALS (20 sets, daily range): BP systolic 85–113; BP diastolic 35–91
[2017-05-05] MEDS: Digoxin 0.125mg tab ORAL SCH ×2 (09:00→09:15)
[2017-05-05] MEDS: Depakote 500mg tab ORAL SCH ×2 (09:00→09:18)
[2017-05-05] MEDS: Advair 250/50 Inhaler - 14 dose INH SCH ×2 (09:55→21:05)
--- NOTE | 2017-05-05 10:15 | Progress Note ---
DATE: 05/04/2017 CARDIOLOGY PROGRESS NOTE SUBJECTIVE: The patient remains in the intensive care unit. She has rapid atrial fibrillation. She is quite congested. OBJECTIVE: VITAL SIGNS: Blood pressure 106/71, heart rate 120, and respiratory rate 22. Afebrile. LUNGS: Coarse breath sounds. Scattered rhonchi. HEART: Irregularly irregular rhythm. Rapid S1 and S2. ABDOMEN: Soft. EXTREMITIES: No edema. LABORATORY DATA: White count 12, hemoglobin 10.5. Sodium 139, potassium 3.7, bicarbonate 27, BUN 13, and creatinine 0.7. Albumin 1.9. Magnesium 1.5. IMPRESSION: 1. Chronic obstructive pulmonary disease exacerbation. 2. Atrial fibrillation with rapid ventricular response. 3. Hypomagnesemia. 4. Severe anemia. 5. Severe protein-calorie malnutrition. 6. Vitamin deficiency. PLAN: Recommend respiratory hygiene. Monitor hemoglobin, antimicrobials. Continue digoxin. Psychiatric therapy per Dr. Alex Guerra. Additional rate control agents to follow. Jeremiah Harvey M.D. DR: EMILY JOB#: [id number] CC:
--- NOTE | 2017-05-05 10:49 | Pulmonology Progress Note ---
Assessment/Plan Assessment/Plan IMPRESSION bronchitis COPD with exacerbation shortness of breath hypertension anemia atrial fib SVT with RVR pleural effusion increasing congestion PLAN ICU care rate control cards noted respiratory care oxygen supportive care may need tap check BNP consider diuresis impression, plan, and exam edited and reviewed in detail care discussed with RN Subjective Allergies: Coded Allergies: No Known Allergies (Unverified , 04/25/17) Subjective care reviewed in ICU significant SVT noted with increase in congestion no distress Objective Last 24 Hour Vital Signs Date Time Temp Pulse Resp B/P (MAP) Pulse Ox O2 Delivery O2 Flow Rate FiO2 05/05/17 10:00 98.8 131 18 108/71 93 05/05/17 09:56 Nasal Cannula 3.0 32 05/05/17 09:56 93 Nasal Cannula 3.0 32 05/05/17 09:00 98.3 135 27 94/59 97 05/05/17 08:00 99.5 138 24 93/59 97 05/05/17 08:00 131 05/05/17 03:00 123 16 99/63 99 05/05/17 02:00 115 18 85/53 100 05/05/17 01:00 118 17 96/53 100 05/05/17 00:00 119 05/05/17 00:00 98.9 119 13 89/48 100 05/04/17 23:00 125 23 87/51 99 05/04/17 22:00 130 23 97/56 99 05/04/17 21:00 128 23 96/51 98 05/04/17 20:00 124 05/04/17 20:00 98.6 124 15 93/57 97 05/04/17 19:47 Nasal Cannula 2.0 28 05/04/17 19:47 96 Nasal Cannula 2.0 28 05/04/17 19:30 99.0 05/04/17 19:00 132 15 96/61 97 05/04/17 18:00 99.0 130 16 113/90 97 05/04/17 17:00 126 16 143/93 99 05/04/17 16:00 98.8 103 19 126/73 100 Nasal Cannula 2.0 05/04/17 16:00 103 05/04/17 15:00 116 12 90/60 83 05/04/17 14:00 107 19 88/57 99 05/04/17 13:00 111 21 96/60 99 05/04/17 12:00 97.6 114 15 96/60 96 Nasal Cannula 2.0 05/04/17 12:00 114 05/04/17 11:00 123 21 114/74 98 Intake and Output 05/04/17 05/05/17 19:00 07:00 Intake Total 853 ml 50 ml Balance 853 ml 50 ml Intake Oral 398 ml 50 ml IV Total 455 ml # Voids 6 2 # Bowel Movements 3 3 Objective WDWN NAD reduced breath sounds bilaterally with increasing rhonchi S1S2 tachy without MRG NABS nontender no HSM no CCE altered Current Medications Medications (Trade) Dose Ordered Sig/Matthieu Route PRN Reason Start Time Stop Time Status Last Admin Dose Admin Acetaminophen (Tylenol) 650 mg Q6H PRN ORAL Mild Pain/Temp > 100.5 05/02/17 21:34 06/01/17 21:33 05/04/17 18:31 Digoxin (Lanoxin) 0.125 mg DAILY ORAL 05/03/17 09:00 05/27/17 08:59 05/04/17 08:16 Divalproex Sodium (Depakote) 500 mg DAILY ORAL 05/03/17 09:00 05/29/17 08:59 05/04/17 08:14 Divalproex Sodium (Depakote) 750 mg BEDTIME ORAL 05/03/17 21:00 05/28/17 20:59 05/04/17 20:51 Ertapenem 1 gm/ Sodium Chloride 55 ml @ 110 mls/hr Q24H IVPB 05/03/17 17:00 05/08/17 16:59 05/04/17 16:36 Folic Acid (Folate) 1 mg DAILY ORAL 05/03/17 09:00 05/27/17 10:59 05/04/17 08:14 Gabapentin (Neurontin) 300 mg BEDTIME ORAL 05/03/17 21:00 06/01/17 20:59 05/04/17 20:51 Olanzapine (ZyPREXA) 5 mg BEDTIME ORAL 05/03/17 21:00 05/31/17 20:59 05/04/17 20:51 Olanzapine (ZyPREXA) 10 mg HSPRN PRN ORAL Agitation 05/03/17 12:30 05/27/17 12:29 Ondansetron HCl (Zofran) 4 mg Q6H PRN IVP Nausea & Vomiting 05/02/17 23:00 05/26/17 16:59 Prednisone (predniSONE) 10 mg DAILY ORAL 05/04/17 09:00 06/03/17 08:59 05/04/17 08:16 Salmeterol Xinafoate/ Fluticasone (Advair 250/50 Diskus) 1 puffs BIDRT INH 05/02/17 22:00 05/28/17 09:59 05/05/17 09:55 Tiotropium [place] (Spiriva Inhaler) 1 puff DAILY@1000 INH 05/03/17 10:00 05/28/17 09:59 05/05/17 10:00 SPENCER GUERRERO May 05, 2017 10:49
--- NOTE | 2017-05-05 11:21 | Infectious Diseases Prog Note ---
Assessment/Plan Assessment/Plan antibiotics : ertapenem A 1. klebsiella pneumonia 2. COPD exacerbation 3. Atrial fibrillation 4. Bipolar disorder 5. rectal VRE colonization P 1. continue ertapenem 2. will follow up cultures Subjective ROS Limited/Unobtainable: Yes Allergies: Coded Allergies: No Known Allergies (Unverified , 04/25/17) Objective Vital Signs Last 24 Hour Vital Signs Date Time Temp Pulse Resp B/P (MAP) Pulse Ox O2 Delivery O2 Flow Rate FiO2 05/05/17 11:00 98.7 124 12 93/59 98 Nasal Cannula 2.0 05/05/17 10:00 98.8 131 18 108/71 93 Nasal Cannula 3.0 05/05/17 09:56 Nasal Cannula 3.0 32 05/05/17 09:56 93 Nasal Cannula 3.0 32 05/05/17 09:00 98.3 135 27 94/59 97 Nasal Cannula 3.0 05/05/17 08:00 99.5 138 24 93/59 97 Nasal Cannula 3.0 05/05/17 08:00 131 05/05/17 03:00 123 16 99/63 99 05/05/17 02:00 115 18 85/53 100 05/05/17 01:00 118 17 96/53 100 05/05/17 00:00 119 05/05/17 00:00 98.9 119 13 89/48 100 05/04/17 23:00 125 23 87/51 99 05/04/17 22:00 130 23 97/56 99 05/04/17 21:00 128 23 96/51 98 05/04/17 20:00 124 05/04/17 20:00 98.6 124 15 93/57 97 05/04/17 19:47 Nasal Cannula 2.0 28 05/04/17 19:47 96 Nasal Cannula 2.0 28 05/04/17 19:30 99.0 05/04/17 19:00 132 15 96/61 97 05/04/17 18:00 99.0 130 16 113/90 97 05/04/17 17:00 126 16 143/93 99 05/04/17 16:00 98.8 103 19 126/73 100 Nasal Cannula 2.0 05/04/17 16:00 103 05/04/17 15:00 116 12 90/60 83 2/5/18 14:00 107 19 88/57 99 05/04/17 13:00 111 21 96/60 99 05/04/17 12:00 97.6 114 15 96/60 96 Nasal Cannula 2.0 05/04/17 12:00 114 Height (Feet): 5 Height (Inches): 0.00 Weight (Pounds): 106 Respiratory/Chest: lungs clear Cardiovascular: normal rate, regular rhythm, no gallop/murmur Abdomen: soft, non tender Extremities: no edema XOCHILT FORD May 05, 2017 11:21
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
[2017-05-05] MEDS: Acetaminophen 650 MG SUPP RECTAL PRN (14:51)
[2017-05-05] MEDS: Ertapenem 1gm in NS 55ml IVPB SCH (16:44)
[2017-05-05] MEDS ORDERED: LORazepam Inj 2mg/ml 1ml IM PRN (22:30)
[2017-05-05] MEDS ORDERED: Digoxin 0.5mg/2ml Inj IVP ONE (23:15)
[2017-05-06] VITALS (35 sets, daily range): BP systolic 80–117; BP diastolic 45–84
--- NOTE | 2017-05-06 01:45 | Progress Note ---
DATE: 05/05/2017 SUBJECTIVE: The patient continues to be confused. Restless. Attempts to come out of bed. Failed swallow study today, therefore NG was not placed. The patient has been confused and disoriented, not able to be engaged during the evaluation, easily agitated. MENTAL STATUS EXAMINATION: The patient is alert, however, confused, disoriented. Mood is agitated. Affect is blunted, congruent with mood and appropriate. Thought process is disorganized. Thought content, positive for delusion. No suicidal or homicidal ideations. Cognition is impaired. Insight and judgment non-existent. ASSESSMENT: 1. Agitation. 2. Encephalopathy. PLAN: 1. We will continue the current medications, Depakote and Zyprexa. 2. We will start the Ativan 1 mg every four hours IM as needed for anxiety and agitation. Alex Guerra M.D. DR: AIMEE JOB#: [id number] CC:
--- NOTE | 2017-05-06 02:30 | Progress Note ---
DATE: 05/05/2017 INTERNAL MEDICINE AND CARDIOLOGY PROGRESS NOTE SUBJECTIVE: The patient remains in the intensive care unit. She remains in atrial fibrillation with increased ventricular response. OBJECTIVE: VITAL SIGNS: Blood pressure 93 to 108/59 to 71, heart rate 120 to 130, respiratory rate 12 to 27, and she is afebrile. LUNGS: Bilateral breath sounds. Rhonchi and rales at the bases. HEART: Irregularly irregular rhythm. Normal S1, S2. ABDOMEN: Soft. EXTREMITIES: Trace edema. DIAGNOSTIC DATA: Chest x-ray reveals atelectasis, effusion, and consolidation at the bases. IMPRESSION: 1. Klebsiella pneumoniae, extended spectrum beta lactamase. 2. Respiratory failure. 3. Atrial fibrillation with rapid ventricular response. 4. Acute on chronic diastolic congestive heart failure. 5. Hypomagnesemia. 6. Chronic obstructive pulmonary disease. 7. Anemia. 8. Folate and iron deficiency. PLAN: 1. Addition of digitalis. 2. Diuresis. 3. Potassium and magnesium replacement. 4. Continue intravenous ertapenem. Jeremiah Harvey M.D. DR: JAY JOB#: [id number] CC:
[2017-05-06 05:20] LABS: HEMATOCRIT 30.2 % (37.0-47.0); HEMOGLOBIN 9.9 G/DL (12.0-16.0); MEAN CORPUSCULAR VOLUME 94 FL (80-99); PLATELET COUNT 27 K/UL (150-450); RED CELL DISTRIBUTION WIDTH 15.8 % (11.6-14.8); WHITE BLOOD COUNT 12.5 K/UL (4.8-10.8)
[2017-05-06 05:34] LABS: ALANINE AMINOTRANSFERASE 35 U/L (12-78); ALBUMIN 1.9 G/DL (3.4-5.0); ALBUMIN/GLOBULIN RATIO 0.5 (1.0-2.7); ALKALINE PHOSPHATASE 130 U/L (46-116); ANION GAP 6 mmol/L (5-15); ASPARTATE AMINO TRANSFERASE 58 U/L (15-37); BILIRUBIN,TOTAL 0.6 MG/DL (0.2-1.0); BLOOD UREA NITROGEN 25 mg/dL (7-18); CALCIUM 8.3 MG/DL (8.5-10.1); CARBON DIOXIDE 33 MMOL/L (21-32); CHLORIDE 108 MMOL/L (98-107); CREATININE 0.8 MG/DL (0.55-1.30); POTASSIUM 3.7 MMOL/L (3.5-5.1); SODIUM 147 MMOL/L (136-145)
[2017-05-06] MEDS: Digoxin 0.125mg tab ORAL SCH (08:59)
[2017-05-06] MEDS: Depakote 500mg tab ORAL SCH (09:00)
--- NOTE | 2017-05-06 09:25 | Pulmonology Progress Note ---
Assessment/Plan Assessment/Plan IMPRESSION bronchitis COPD with exacerbation shortness of breath hypertension anemia atrial fib SVT with RVR pleural effusion increasing congestion PLAN ICU care rate control cards noted respiratory care and monitor for deterioration oxygen supportive care may need tap - will follow up imaging check BNP consider diuresis impression, plan, and exam edited and reviewed in detail care discussed with RN Subjective ROS Limited/Unobtainable: Yes Allergies: Coded Allergies: No Known Allergies (Unverified , 04/25/17) Subjective care reviewed in ICU altered no distress Objective Last 24 Hour Vital Signs Date Time Temp Pulse Resp B/P (MAP) Pulse Ox O2 Delivery O2 Flow Rate FiO2 05/06/17 08:59 133 05/06/17 08:00 142 05/06/17 08:00 98.9 133 22 117/77 98 Nasal Cannula 3.0 05/06/17 07:00 120 22 97/46 95 Nasal Cannula 3.0 05/06/17 06:00 97 22 90/55 95 Nasal Cannula 3.0 05/06/17 05:00 90 20 90/58 97 Nasal Cannula 3.0 05/06/17 04:00 135 05/06/17 04:00 98.8 133 19 90/48 98 Nasal Cannula 3.0 05/06/17 03:00 131 19 95/60 99 Nasal Cannula 3.0 05/06/17 02:00 135 22 104/68 98 Nasal Cannula 3.0 05/06/17 01:00 135 22 109/66 100 Nasal Cannula 3.0 05/06/17 00:14 123 05/06/17 00:00 98.4 134 14 94/57 100 Nasal Cannula 3.0 05/06/17 00:00 134 05/05/17 23:00 135 17 105/61 99 Nasal Cannula 3.0 05/05/17 22:00 138 13 90/64 98 Nasal Cannula 3.0 05/05/17 21:00 155 22 106/76 96 Nasal Cannula 3.0 05/05/17 20:00 137 05/05/17 20:00 139 21 92/35 88 Nasal Cannula 3.0 05/05/17 19:36 Nasal Cannula 3.0 32 05/05/17 19:35 96 Nasal Cannula 3.0 32 05/05/17 19:00 98.7 140 23 85/67 100 Nasal Cannula 3.0 2/6/18 18:00 98.9 144 19 109/91 94 Nasal Cannula 3.0 05/05/17 17:00 98.9 144 23 88/62 97 Nasal Cannula 3.0 05/05/17 16:00 161 05/05/17 16:00 99.8 156 23 108/69 94 Nasal Cannula 3.0 05/05/17 15:21 100.0 05/05/17 15:00 100.2 154 22 113/66 93 Nasal Cannula 3.0 05/05/17 14:00 100.0 140 19 98/79 93 Nasal Cannula 3.0 05/05/17 13:00 99.0 139 27 113/75 97 Nasal Cannula 2.0 05/05/17 12:00 98.9 126 22 101/66 97 Nasal Cannula 2.0 05/05/17 12:00 124 05/05/17 11:00 98.7 124 12 93/59 98 Nasal Cannula 2.0 05/05/17 10:00 98.8 131 18 108/71 93 Nasal Cannula 3.0 05/05/17 09:56 Nasal Cannula 3.0 32 05/05/17 09:56 93 Nasal Cannula 3.0 32 Intake and Output 05/05/17 05/06/17 19:00 07:00 Intake Total 0 ml 160 ml Output Total 1 ml Balance 0 ml 159 ml Intake Oral 0 ml 0 ml IV Total 100 ml Other 60 ml Stool Total 1 ml # Voids 3 4 Objective WDWN NAD reduced breath sounds bilaterally with noted rhonchi S1S2 tachy without MRG NABS nontender no HSM no CCE altered Laboratory Tests 05/05/17 13:40: Arterial Blood pH 7.479H, Arterial Blood Partial Pressure CO2 37.7, Arterial Blood Partial Pressure O2 51.4L, Arterial Blood HCO3 27.4H, Arterial Blood Oxygen Saturation 88.0L, Arterial Blood Base Excess 3.8, Itz Test Positive 05/06/17 03:40: White Blood Count 12.5H, Red Blood Count 3.20L, Hemoglobin 9.9L, Hematocrit 30.2L, Mean Corpuscular Volume 94, Mean Corpuscular Hemoglobin 31.0, Mean Corpuscular Hemoglobin Concent 32.9, Red Cell Distribution Width 15.8H, Platelet Count 27L, Mean Platelet Volume 10.9H, Neutrophils (%) (Auto) , Lymphocytes (%) (Auto) , Monocytes (%) (Auto) , Eosinophils (%) (Auto) , Basophils (%) (Auto) , Neutrophils % (Manual) [Pending], Lymphocytes % (Manual) [Pending], Platelet Estimate [Pending], Platelet Morphology [Pending], Sodium Level 147H, Potassium Level 3.7, Chloride Level 108H, Carbon Dioxide Level 33H, Anion Gap 6, Blood Urea Nitrogen 25H, Creatinine 0.8, Estimat Glomerular Filtration Rate > 60, Glucose Level 112H, Calcium Level 8.3L, Magnesium Level 2.0, Total Bilirubin 0.6, Aspartate Amino Transf (AST/SGOT) 58H, Alanine Aminotransferase (ALT/SGPT) 35, Alkaline Phosphatase 130H, Pro-B-Type Natriuretic Peptide 42347L, Total Protein 5.8L, Albumin 1.9L, Globulin 3.9, Albumin/Globulin Ratio 0.5L Current Medications Medications (Trade) Dose Ordered Sig/Matthieu Route PRN Reason Start Time Stop Time Status Last Admin Dose Admin Acetaminophen (Tylenol) 650 mg Q4H PRN RECTAL Mild Pain (Pain Scale 1-3) 05/05/17 14:30 06/04/17 14:29 05/05/17 14:51 Acetaminophen (Tylenol) 650 mg Q6H PRN ORAL Mild Pain/Temp > 100.5 05/02/17 21:34 06/01/17 21:33 05/04/17 18:31 Digoxin (Lanoxin) 0.125 mg DAILY ORAL 05/03/17 09:00 05/27/17 08:59 05/06/17 08:59 Divalproex Sodium (Depakote) 500 mg DAILY ORAL 05/03/17 09:00 05/29/17 08:59 05/06/17 09:00 Divalproex Sodium (Depakote) 750 mg BEDTIME ORAL 05/03/17 21:00 05/28/17 20:59 05/05/17 20:36 Ertapenem 1 gm/ Sodium Chloride 55 ml @ 110 mls/hr Q24H IVPB 05/03/17 17:00 05/08/17 16:59 05/05/17 16:44 Folic Acid (Folate) 1 mg DAILY ORAL 05/03/17 09:00 05/27/17 10:59 05/06/17 09:00 Gabapentin (Neurontin) 300 mg BEDTIME ORAL 05/03/17 21:00 06/01/17 20:59 05/05/17 20:37 Lorazepam (Ativan 2mg/ml 1ml) 1 mg Q4H PRN IM agitation 05/05/17 22:30 05/12/17 22:29 Olanzapine (ZyPREXA) 5 mg BEDTIME ORAL 05/03/17 21:00 05/31/17 20:59 05/05/17 20:37 Olanzapine (ZyPREXA) 10 mg HSPRN PRN ORAL Agitation 05/03/17 12:30 05/27/17 12:29 Ondansetron HCl (Zofran) 4 mg Q6H PRN IVP Nausea & Vomiting 05/02/17 23:00 05/26/17 16:59 Prednisone (predniSONE) 10 mg DAILY ORAL 05/04/17 09:00 06/03/17 08:59 05/06/17 09:00 Salmeterol Xinafoate/ Fluticasone (Advair 250/50 Diskus) 1 puffs BIDRT INH 05/02/17 22:00 05/28/17 09:59 05/05/17 09:55 Tiotropium [place] (Spiriva Inhaler) 1 puff DAILY@1000 INH 05/03/17 10:00 05/28/17 09:59 05/05/17 10:00 SPENCER GUERRERO May 06, 2017 09:24
[2017-05-06] MEDS: Advair 250/50 Inhaler - 14 dose INH SCH ×2 (09:52→21:41)
[2017-05-06] MEDS: Amiodarone 900 MG in D5W 500ml 482 ML IV SCH ×2 (12:44→19:48)
--- NOTE | 2017-05-06 12:50 | Diagnostic Imaging Report ---
Indication: Shortness of breath Technique: One view of the chest Comparison: 05/04/2017 Findings: Interim placement of nasogastric tube, tip projecting beyond the edge of image. Bibasilar atelectasis and/or scarring and or consolidation, left perihilar scarring, left-sided pleural effusion and left basilar atelectasis and consolidation persists. There is increased atelectasis in the right perihilar region. The heart remains enlarged. Impression: Increased right perihilar atelectasis New nasogastric tube in satisfactory position Otherwise stable, over 2 days, as described
[2017-05-06] MEDS: Acetaminophen 650 MG SUPP RECTAL PRN (14:51)
[2017-05-06] MEDS: Ertapenem 1gm in NS 55ml IVPB SCH (18:00)
[2017-05-06] MEDS: Valproic Acid 250mg/5ml Liquid NG SCH (21:16)
[2017-05-06] MEDS ORDERED: D5W w/KCl 20mEq 1,000 ML IV SCH (22:00)
[2017-05-07] VITALS (41 sets, daily range): BP systolic 57–99; BP diastolic 26–66
--- NOTE | 2017-05-07 01:31 | Progress Note ---
DATE: 05/06/2017 INTERNAL MEDICINE PROGRESS NOTE SUBJECTIVE: The patient is alert and interactive. She is hungry and wants to eat. She remains in rapid atrial fibrillation. OBJECTIVE: VITAL SIGNS: Blood pressure 97/79, pulse 128, respirations 20, and afebrile. LUNGS: Bilateral breath sounds. Rhonchi. HEART: Irregularly irregular rhythm. Normal S1 and S2. ABDOMEN: Soft. EXTREMITIES: No edema. LABORATORY AND DIAGNOSTIC DATA: White count 12.5 and hemoglobin 9.9. Sodium 147, potassium 3.7, BUN 25, and creatinine 0.8. Pro-natriuretic peptide 21,000. ABG, 7.5/. IMPRESSION: 1. Incessant rapid atrial fibrillation. 2. Chronic obstructive pulmonary disease exacerbation. 3. Klebsiella extended-spectrum beta-lactamase pneumonia. 4. Anemia. 5. Status post transfusion. 6. Vitamin deficiency that is previously outlined. 7. Severe protein-calorie malnutrition. 8. Dehydration. 9. Hypernatremia PLAN: 1. Continue digoxin. 2. Start amiodarone intravenously. 3. Continue antimicrobials and respiratory hygiene. 4. Begin oral intake with aspiration precaution. 5. Hypotonic IV fluids and replace potassium as needed. Jeremiah Harvey M.D. DR: OLIVA JOB#: [id number] CC:
--- NOTE | 2017-05-07 08:31 | Progress Note ---
DATE: 05/06/2017 NOTE: POOR AUDIO SUBJECTIVE: The patient is asleep. she is arousable, however, confused, not agitated. She bilateral soft restraint. found her intravenous access. . MENTAL STATUS EXAMINATION: The patient is alert, confused. Mood still is agitated, however, is calmer. Thought process, there is a paucity of thought content. Thought content, no suicidal or homicidal ideations. ASSESSMENT: 1. Encephalopathy. 2. Bipolar disorder with psychotic features. PLAN: We will continue the current medications. Continue to follow . Alex Guerra M.D. DR: GREGORIO JOB#: [id number] CC:
--- NOTE | 2017-05-07 08:34 | Pulmonology Progress Note ---
Assessment/Plan Assessment/Plan IMPRESSION bronchitis COPD with exacerbation shortness of breath hypertension anemia atrial fib SVT with RVR pleural effusion increasing congestion PLAN ICU care rate control antiarrythmics per cardiology monitor blood pressure cards noted respiratory care and monitor for deterioration oxygen supportive care may need tap - will follow up imaging for change check BNP on hydration impression, plan, and exam edited and reviewed in detail care discussed with RN Subjective Allergies: Coded Allergies: No Known Allergies (Unverified , 04/25/17) Subjective care reviewed in ICU altered no distress still tachy Objective Last 24 Hour Vital Signs Date Time Temp Pulse Resp B/P (MAP) Pulse Ox O2 Delivery O2 Flow Rate FiO2 05/07/17 07:00 124 18 88/65 100 Nasal Cannula 3.0 05/07/17 06:35 97 Nasal Cannula 3.0 32 05/07/17 06:35 Nasal Cannula 3.0 32 05/07/17 06:30 118 17 95/62 100 Nasal Cannula 3.0 05/07/17 06:00 123 18 91/54 100 Nasal Cannula 3.0 05/07/17 05:30 128 17 90/63 99 Nasal Cannula 3.0 05/07/17 05:00 126 16 93/65 100 Nasal Cannula 3.0 05/07/17 04:30 99.2 126 17 88/52 100 Nasal Cannula 3.0 05/07/17 04:00 123 16 86/59 100 Nasal Cannula 3.0 05/07/17 04:00 125 05/07/17 03:00 122 16 92/64 100 Nasal Cannula 3.0 05/07/17 02:30 122 16 92/64 99 Nasal Cannula 3.0 05/07/17 02:00 125 16 83/49 100 Nasal Cannula 3.0 05/07/17 01:30 124 16 94/55 100 Nasal Cannula 3.0 05/07/17 01:00 124 16 90/54 100 Nasal Cannula 3.0 05/07/17 00:30 124 17 95/56 100 Nasal Cannula 3.0 05/07/17 00:00 127 05/07/17 00:00 99.0 127 18 82/53 100 Nasal Cannula 3.0 05/06/17 23:30 126 18 90/45 100 Nasal Cannula 3.0 05/06/17 23:00 122 18 82/50 99 Nasal Cannula 3.0 05/06/17 22:30 124 18 85/50 99 Nasal Cannula 3.0 05/06/17 22:00 126 18 80/50 99 Nasal Cannula 3.0 05/06/17 21:30 133 18 80/50 99 Nasal Cannula 3.0 05/06/17 21:00 133 18 103/75 99 Nasal Cannula 3.0 05/06/17 20:30 129 16 89/60 97 Nasal Cannula 3.0 05/06/17 20:00 99.0 133 19 96/60 99 Nasal Cannula 3.0 05/06/17 20:00 146 05/06/17 19:30 128 20 97/79 100 Nasal Cannula 3.0 05/06/17 19:14 98 Nasal Cannula 3.0 32 05/06/17 19:14 Nasal Cannula 3.0 32 05/06/17 19:00 128 20 87/65 100 Nasal Cannula 3.0 05/06/17 18:00 128 20 99/69 100 Nasal Cannula 3.0 05/06/17 17:30 128 20 101/62 100 Nasal Cannula 3.0 05/06/17 17:00 129 20 100/80 100 Nasal Cannula 3.0 05/06/17 16:30 134 25 89/60 100 Nasal Cannula 3.0 05/06/17 16:00 99.1 129 18 80/53 94 Nasal Cannula 3.0 05/06/17 16:00 128 05/06/17 15:30 129 18 90/66 100 Nasal Cannula 3.0 05/06/17 15:21 99.8 05/06/17 15:00 124 18 83/57 100 Nasal Cannula 3.0 05/06/17 14:40 100.5 05/06/17 14:30 128 18 96/71 100 Nasal Cannula 3.0 05/06/17 14:00 128 18 96/71 100 Nasal Cannula 3.0 05/06/17 13:30 139 18 98/64 100 Nasal Cannula 3.0 05/06/17 13:00 139 18 96/84 100 Nasal Cannula 3.0 05/06/17 12:30 130 18 83/53 98 Nasal Cannula 3.0 05/06/17 12:00 98.7 133 22 83/56 98 Nasal Cannula 3.0 05/06/17 12:00 116 05/06/17 11:00 124 18 93/54 99 Nasal Cannula 3.0 05/06/17 10:00 133 18 99/54 99 Nasal Cannula 3.0 05/06/17 09:00 125 18 103/60 99 Nasal Cannula 3.0 05/06/17 08:59 133 Intake and Output 05/06/17 05/07/17 19:00 07:00 Intake Total 333.15 ml 1066.58 ml Output Total 0 ml Balance 333.15 ml 1066.58 ml Free Water 100 ml 0 ml IV Total 233.15 ml 1066.58 ml Output Urine Total 0 ml # Voids 6 5 # Bowel Movements 5 2 Objective WDWN NAD reduced breath sounds bilaterally with noted rhonchi S1S2 tachy without MRG NABS nontender no HSM no CCE altered Laboratory Tests 05/06/17 10:56: Arterial Blood pH 7.504H, Arterial Blood Partial Pressure CO2 40.9, Arterial Blood Partial Pressure O2 88.7, Arterial Blood HCO3 31.5H, Arterial Blood Oxygen Saturation 95.9, Arterial Blood Base Excess 7.7, Itz Test Positive 05/06/17 15:00: Stool Occult Blood [Pending] Current Medications Medications (Trade) Dose Ordered Sig/Matthieu Route PRN Reason Start Time Stop Time Status Last Admin Dose Admin Acetaminophen (Tylenol) 650 mg Q4H PRN RECTAL Mild Pain (Pain Scale 1-3) 05/05/17 14:30 06/04/17 14:29 05/06/17 14:51 Acetaminophen (Tylenol) 650 mg Q6H PRN ORAL Mild Pain/Temp > 100.5 05/02/17 21:34 06/01/17 21:33 05/04/17 18:31 Amiodarone HCl 900 mg/Dextrose 500 ml @ 0 mls/hr Q24H IV 05/06/17 12:30 05/07/17 12:29 05/06/17 19:48 Digoxin (Lanoxin) 0.125 mg DAILY ORAL 05/03/17 09:00 05/27/17 08:59 05/06/17 08:59 Ertapenem 1 gm/ Sodium Chloride 55 ml @ 110 mls/hr Q24H IVPB 05/03/17 17:00 05/08/17 16:59 05/06/17 18:00 Folic Acid (Folate) 1 mg DAILY ORAL 05/03/17 09:00 05/27/17 10:59 05/06/17 09:00 Gabapentin (Neurontin) 300 mg BEDTIME ORAL 05/03/17 21:00 06/01/17 20:59 05/06/17 21:17 Lorazepam (Ativan 2mg/ml 1ml) 1 mg Q4H PRN IM agitation 05/05/17 22:30 05/12/17 22:29 Olanzapine (ZyPREXA) 5 mg BEDTIME ORAL 05/03/17 21:00 05/31/17 20:59 05/06/17 21:17 Olanzapine (ZyPREXA) 10 mg HSPRN PRN ORAL Agitation 05/03/17 12:30 05/27/17 12:29 Ondansetron HCl (Zofran) 4 mg Q6H PRN IVP Nausea & Vomiting 05/02/17 23:00 05/26/17 16:59 Prednisone (predniSONE) 10 mg DAILY ORAL 05/04/17 09:00 06/03/17 08:59 05/06/17 09:00 Salmeterol Xinafoate/ Fluticasone (Advair 250/50 Diskus) 1 puffs BIDRT INH 05/02/17 22:00 05/28/17 09:59 05/05/17 09:55 Tiotropium [place] (Spiriva Inhaler) 1 puff DAILY@1000 INH 05/03/17 10:00 05/28/17 09:59 05/05/17 10:00 Valproic Acid (Depakene) 500 mg DAILY NG 05/07/17 09:00 06/06/17 08:59 Valproic Acid (Depakene) 750 mg BEDTIME NG 05/06/17 21:00 06/05/17 20:59 05/06/17 21:16 SPENCER GUERRERO May 07, 2017 08:34
[2017-05-07] MEDS: Digoxin 0.125mg tab ORAL SCH (09:24)
[2017-05-07] MEDS: Advair 250/50 Inhaler - 14 dose INH SCH ×2 (09:24→21:06)
[2017-05-07] MEDS: Valproic Acid 250mg/5ml Liquid NG SCH ×2 (09:26→21:30)
--- NOTE | 2017-05-07 09:36 | Infectious Diseases Prog Note ---
Assessment/Plan Assessment/Plan A; COPD exacerbation Pneumonia Atrial fibrillation with RVR Anemia Bipolar disorder P; Continue Ertapenem Subjective ROS Limited/Unobtainable: Yes Constitutional: Reports: fever, other - low grade yesterday Neurologic: Reports: confusion, other - on restraint Allergies: Coded Allergies: No Known Allergies (Unverified , 04/25/17) Objective Vital Signs Last 24 Hour Vital Signs Date Time Temp Pulse Resp B/P (MAP) Pulse Ox O2 Delivery O2 Flow Rate FiO2 05/07/17 09:24 131 05/07/17 07:00 124 18 88/65 100 Nasal Cannula 3.0 05/07/17 06:35 97 Nasal Cannula 3.0 32 05/07/17 06:35 Nasal Cannula 3.0 32 05/07/17 06:30 118 17 95/62 100 Nasal Cannula 3.0 05/07/17 06:00 123 18 91/54 100 Nasal Cannula 3.0 05/07/17 05:30 128 17 90/63 99 Nasal Cannula 3.0 05/07/17 05:00 126 16 93/65 100 Nasal Cannula 3.0 05/07/17 04:30 99.2 126 17 88/52 100 Nasal Cannula 3.0 05/07/17 04:00 123 16 86/59 100 Nasal Cannula 3.0 05/07/17 04:00 125 05/07/17 03:00 122 16 92/64 100 Nasal Cannula 3.0 05/07/17 02:30 122 16 92/64 99 Nasal Cannula 3.0 05/07/17 02:00 125 16 83/49 100 Nasal Cannula 3.0 05/07/17 01:30 124 16 94/55 100 Nasal Cannula 3.0 05/07/17 01:00 124 16 90/54 100 Nasal Cannula 3.0 05/07/17 00:30 124 17 95/56 100 Nasal Cannula 3.0 05/07/17 00:00 127 05/07/17 00:00 99.0 127 18 82/53 100 Nasal Cannula 3.0 05/06/17 23:30 126 18 90/45 100 Nasal Cannula 3.0 05/06/17 23:00 122 18 82/50 99 Nasal Cannula 3.0 05/06/17 22:30 124 18 85/50 99 Nasal Cannula 3.0 05/06/17 22:00 126 18 80/50 99 Nasal Cannula 3.0 05/06/17 21:30 133 18 80/50 99 Nasal Cannula 3.0 05/06/17 21:00 133 18 103/75 99 Nasal Cannula 3.0 05/06/17 20:30 129 16 89/60 97 Nasal Cannula 3.0 05/06/17 20:00 99.0 133 19 96/60 99 Nasal Cannula 3.0 05/06/17 20:00 146 05/06/17 19:30 128 20 97/79 100 Nasal Cannula 3.0 05/06/17 19:14 98 Nasal Cannula 3.0 32 05/06/17 19:14 Nasal Cannula 3.0 32 05/06/17 19:00 128 20 87/65 100 Nasal Cannula 3.0 05/06/17 18:00 128 20 99/69 100 Nasal Cannula 3.0 05/06/17 17:30 128 20 101/62 100 Nasal Cannula 3.0 05/06/17 17:00 129 20 100/80 100 Nasal Cannula 3.0 05/06/17 16:30 134 25 89/60 100 Nasal Cannula 3.0 05/06/17 16:00 99.1 129 18 80/53 94 Nasal Cannula 3.0 05/06/17 16:00 128 05/06/17 15:30 129 18 90/66 100 Nasal Cannula 3.0 05/06/17 15:21 99.8 05/06/17 15:00 124 18 83/57 100 Nasal Cannula 3.0 05/06/17 14:40 100.5 05/06/17 14:30 128 18 96/71 100 Nasal Cannula 3.0 05/06/17 14:00 128 18 96/71 100 Nasal Cannula 3.0 05/06/17 13:30 139 18 98/64 100 Nasal Cannula 3.0 05/06/17 13:00 139 18 96/84 100 Nasal Cannula 3.0 05/06/17 12:30 130 18 83/53 98 Nasal Cannula 3.0 05/06/17 12:00 98.7 133 22 83/56 98 Nasal Cannula 3.0 05/06/17 12:00 116 05/06/17 11:00 124 18 93/54 99 Nasal Cannula 3.0 05/06/17 10:00 133 18 99/54 99 Nasal Cannula 3.0 Height (Feet): 5 Height (Inches): 0.00 Weight (Pounds): 103 HEENT: mucous membranes moist Respiratory/Chest: rhonchi - bilaterally, other - O2 by nasal cannula Cardiovascular: tachycardia, irregularly irregular Abdomen: soft, non tender Extremities: no edema Neurologic/Psychiatric: other - sleeping Laboratory Tests Test 05/06/17 10:56 05/06/17 15:00 Arterial Blood pH 7.504 (7.350-7.450) Arterial Blood Partial Pressure CO2 40.9 mmHg (35.0-45.0) Arterial Blood Partial Pressure O2 88.7 mmHg (75.0-100.0) Arterial Blood HCO3 31.5 mmol/L (22.0-26.0) H Arterial Blood Oxygen Saturation 95.9 % (92.0-98.0) Arterial Blood Base Excess 7.7 Itz Test Positive Stool Occult Blood Pending Current Medications Medications (Trade) Dose Ordered Sig/Matthieu Route PRN Reason Start Time Stop Time Status Last Admin Dose Admin Acetaminophen (Tylenol) 650 mg Q4H PRN RECTAL Mild Pain (Pain Scale 1-3) 05/05/17 14:30 06/04/17 14:29 05/06/17 14:51 Acetaminophen (Tylenol) 650 mg Q6H PRN ORAL Mild Pain/Temp > 100.5 05/02/17 21:34 06/01/17 21:33 05/04/17 18:31 Amiodarone HCl 900 mg/Dextrose 500 ml @ 0 mls/hr Q24H IV 05/06/17 12:30 05/07/17 12:29 05/06/17 19:48 Digoxin (Lanoxin) 0.125 mg DAILY ORAL 05/03/17 09:00 05/27/17 08:59 05/07/17 09:24 Ertapenem 1 gm/ Sodium Chloride 55 ml @ 110 mls/hr Q24H IVPB 05/03/17 17:00 05/08/17 16:59 05/06/17 18:00 Folic Acid (Folate) 1 mg DAILY ORAL 05/03/17 09:00 05/27/17 10:59 05/07/17 09:25 Gabapentin (Neurontin) 300 mg BEDTIME ORAL 05/03/17 21:00 06/01/17 20:59 05/06/17 21:17 Lorazepam (Ativan 2mg/ml 1ml) 1 mg Q4H PRN IM agitation 05/05/17 22:30 05/12/17 22:29 Olanzapine (ZyPREXA) 5 mg BEDTIME ORAL 05/03/17 21:00 05/31/17 20:59 05/06/17 21:17 Olanzapine (ZyPREXA) 10 mg HSPRN PRN ORAL Agitation 05/03/17 12:30 05/27/17 12:29 Ondansetron HCl (Zofran) 4 mg Q6H PRN IVP Nausea & Vomiting 05/02/17 23:00 05/26/17 16:59 Prednisone (predniSONE) 10 mg DAILY ORAL 05/04/17 09:00 06/03/17 08:59 05/07/17 09:25 Salmeterol Xinafoate/ Fluticasone (Advair 250/50 Diskus) 1 puffs BIDRT INH 05/02/17 22:00 05/28/17 09:59 05/05/17 09:55 Tiotropium [place] (Spiriva Inhaler) 1 puff DAILY@1000 INH 05/03/17 10:00 05/28/17 09:59 05/05/17 10:00 Valproic Acid (Depakene) 500 mg DAILY NG 05/07/17 09:00 06/06/17 08:59 05/07/17 09:26 Valproic Acid (Depakene) 750 mg BEDTIME NG 05/06/17 21:00 06/05/17 20:59 05/06/17 21:16 MINH GREENBERG May 07, 2017 09:35
[2017-05-07 12:18] LABS: HEMATOCRIT 28.3 % (37.0-47.0); HEMOGLOBIN 9.4 G/DL (12.0-16.0); MEAN CORPUSCULAR VOLUME 96 FL (80-99); PLATELET COUNT 27 K/UL (150-450); RED BLOOD COUNT 2.96 M/UL (4.20-5.40); RED CELL DISTRIBUTION WIDTH 16.1 % (11.6-14.8); WHITE BLOOD COUNT 18.3 K/UL (4.8-10.8)
[2017-05-07 12:36] LABS: ALANINE AMINOTRANSFERASE 29 U/L (12-78); ALBUMIN 1.8 G/DL (3.4-5.0); ALBUMIN/GLOBULIN RATIO 0.4 (1.0-2.7); ALKALINE PHOSPHATASE 127 U/L (46-116); ANION GAP 3 mmol/L (5-15); ASPARTATE AMINO TRANSFERASE 55 U/L (15-37); BILIRUBIN,TOTAL 0.6 MG/DL (0.2-1.0); BLOOD UREA NITROGEN 37 mg/dL (7-18); CALCIUM 8.3 MG/DL (8.5-10.1); CARBON DIOXIDE 32 MMOL/L (21-32); CHLORIDE 110 MMOL/L (98-107); CREATININE 0.8 MG/DL (0.55-1.30); POTASSIUM 4.7 MMOL/L (3.5-5.1); SODIUM 145 MMOL/L (136-145)
[2017-05-07] MEDS ORDERED: Amiodarone 900 MG in D5W 500ml 482 ML IV SCH (13:30)
[2017-05-07] MEDS ORDERED: Tubing IV Secondary IV ONE (16:36)
[2017-05-07] MEDS ORDERED: NS 275ml ONE (16:36)
--- NOTE | 2017-05-07 16:45 | Progress Note ---
DATE: 05/07/2017 SUBJECTIVE: The patient is presenting with anxiety, agitation, in bed. No behavior issues. Confused and disoriented. MENTAL STATUS EXAMINATION: The patient is disoriented. Has episodes of agitation. Mood is neutral. Affect is flat. Congruent with mood. Thought process is concrete. Thought content, no suicidal or homicidal ideations. ASSESSMENT: 1. Agitation. 2. Encephalopathy. PLAN: We will continue Zyprexa. She has been responding well to increase of Zyprexa and Haldol. We will continue current medications. Alex Guerra M.D. DR: JOSUE JOB#: [id number] CC:
[2017-05-07] MEDS: Ertapenem 1 GM in NS 55 ML IVPB SCH (17:32)
[2017-05-08] VITALS (55 sets, daily range): BP systolic 57–103; BP diastolic 25–68
[2017-05-08] MEDS ORDERED: Levophed 4mg/4mL Inj IV ONE (02:30)
[2017-05-08 05:57] LABS: HEMATOCRIT 22.9 % (37.0-47.0); HEMOGLOBIN 7.7 G/DL (12.0-16.0); MEAN CORPUSCULAR VOLUME 97 FL (80-99); PLATELET COUNT 18 K/UL (150-450); RED BLOOD COUNT 2.38 M/UL (4.20-5.40); RED CELL DISTRIBUTION WIDTH 16.6 % (11.6-14.8)
[2017-05-08 06:11] LABS: ALANINE AMINOTRANSFERASE 39 U/L (12-78); ALBUMIN 1.5 G/DL (3.4-5.0); ALBUMIN/GLOBULIN RATIO 0.4 (1.0-2.7); ALKALINE PHOSPHATASE 188 U/L (46-116); ANION GAP 7 mmol/L (5-15); ASPARTATE AMINO TRANSFERASE 114 U/L (15-37); BILIRUBIN,TOTAL 0.7 MG/DL (0.2-1.0); BLOOD UREA NITROGEN 61 mg/dL (7-18); CALCIUM 7.8 MG/DL (8.5-10.1); CARBON DIOXIDE 28 MMOL/L (21-32); CHLORIDE 113 MMOL/L (98-107); CREATININE 1.5 MG/DL (0.55-1.30); POTASSIUM 5.2 MMOL/L (3.5-5.1); SODIUM 148 MMOL/L (136-145)
[2017-05-08 06:14] LABS: WHITE BLOOD COUNT 26.2 K/UL (4.8-10.8)
--- NOTE | 2017-05-08 06:45 | Emergency Room Report ---
History of Present Illness General Chief Complaint: General Complaint Source: Medical Record, PMD Present Illness HPI This is a 66-year-old female who was admitted to the ICU for hypertension. She has rapid A. fib and was hypotensive. She was started on amiodarone drip. I was asked to see the patient to place a central line for the drip. Patient was obtunded and unable to give consent. Under sterile condition, place a right triple-lumen without any difficulty. No complication. Allergies: Coded Allergies: No Known Allergies (Unverified , 04/25/17) Nursing Documentation-PMH Past Medical History: No History, Except For Hx Cardiac Problems: Yes - a-fib, Hx Hypertension: Yes Hx COPD: Yes Hx Cancer: No Hx Gastrointestinal Problems: No Hx Neurological Problems: No Physical Exam Vital Signs Date Time Temp Pulse Resp B/P (MAP) Pulse Ox O2 Delivery O2 Flow Rate FiO2 04/25/17 13:13 98.1 102 14 108/42 98 Room Air 04/25/17 13:59 2.0 28 Procedures Central Line Central Line : Consent: Emergent Central Line Lumen: triple Maximal Sterile Barrier Tech: yes cap, yes mask, yes sterile gown, yes sterile gloves, yes large sterile sheet, yes hand hygiene, yes chlorhexidine prep Central Line Postion: femoral (R) Complications: none Central Line Post Position: sutured, good blood return Attempts: One Complications: None Medical Decision Making Diagnostic Impression: Primary Impression: COPD exacerbation Additional Impressions: Dyspnea Hyponatremia Last Vital Signs Date Time Temp Pulse Resp B/P (MAP) Pulse Ox O2 Delivery O2 Flow Rate FiO2 05/08/17 06:30 115 16 96/51 100 Bi-pap 40 05/08/17 01:00 97.0 05/07/17 18:00 Disposition: ADMITTED INPATIENT Condition: Serious Referrals: [facility],REFERRING (PCP) ANYI CHASE M.D. May 08, 2017 06:45
--- NOTE | 2017-05-08 07:15 | Progress Note ---
DATE: 05/07/2017 CARDIOLOGY AND INTERNAL MEDICINE PROGRESS NOTE SUBJECTIVE: The patient is withdrawn and lethargic. She has become hypotensive. She continues to have rapid atrial fibrillation. OBJECTIVE: VITAL SIGNS: Blood pressure 81/42, heart rate 111, and respiratory rate 16. The distal extremities are cyanotic. Perfusion is severely diminished. Dorsalis pedis are barely palpable. LUNGS: With coarse breath sounds. CARDIAC: Irregularly irregular. Normal S1, S2. ABDOMEN: Soft and nontender. LABORATORY DATA: Sodium 145, potassium 4.7, bicarbonate 32, BUN 37, and creatinine 0.8. White count 18, hemoglobin 9, and platelet count 27,000. Stool occult blood is positive. IMPRESSION: 1. Critical and guarded. 2. Sepsis shock. 3. Rapid atrial fibrillation. 4. Extended-spectrum beta-lactamase Klebsiella pneumoniae. 5. Chronic obstructive pulmonary disease. 6. Anemia. 7. Thrombocytopenia. 8. Severe protein-calorie malnutrition. 9. Respiratory failure. PLAN: 1. Continue amiodarone. 2. Hypotonic hydration. 3. Pressor support. Central venous access. 4. Monitor platelet counts and observe for further bleeding. 5. Respiratory hygiene. 6. Repeat ABG. 7. Based on the patient's multiorgan system disease, poor prognosis, and performance status, I would recommend DNR in this patient. We will discuss with consultants. Jeremiah Harvey M.D. DR: YVONNE JOB#: [id number] CC:
--- NOTE | 2017-05-08 08:30 | Pulmonology Progress Note ---
Assessment/Plan Assessment/Plan IMPRESSION bronchitis COPD with exacerbation shortness of breath hypertension anemia atrial fib SVT with RVR pleural effusion increasing congestion PLAN BIPAP and monitor ICU care rate control antiarrythmics per cardiology monitor blood pressure cards noted respiratory care and monitor for deterioration oxygen supportive care monitor fluid status on hydration impression, plan, and exam edited and reviewed in detail care discussed with RN Subjective Allergies: Coded Allergies: No Known Allergies (Unverified , 04/25/17) Subjective care reviewed in ICU altered no distress still tachy Objective Last 24 Hour Vital Signs Date Time Temp Pulse Resp B/P (MAP) Pulse Ox O2 Delivery O2 Flow Rate FiO2 05/08/17 07:49 104 05/08/17 07:30 107 16 93/47 99 Bi-pap 40 05/08/17 07:24 105 20 100 Facial 40 05/08/17 07:00 121 16 94/46 100 Bi-pap 40 05/08/17 06:30 115 16 96/51 100 Bi-pap 40 05/08/17 06:00 112 16 101/47 100 Bi-pap 40 05/08/17 06:00 101/47 05/08/17 05:30 112 16 91/52 100 Bi-pap 40 05/08/17 05:00 102/64 05/08/17 05:00 115 16 102/64 100 Bi-pap 40 05/08/17 04:52 121 30 100 Facial 40 05/08/17 04:30 116 16 94/62 100 Bi-pap 40 05/08/17 04:00 120 05/08/17 04:00 126 16 91/47 100 Bi-pap 05/08/17 04:00 91/47 05/08/17 03:30 116 16 94/59 100 Bi-pap 40 05/08/17 03:15 116 16 103/68 100 Bi-pap 40 05/08/17 03:07 128 22 100 Facial 40 05/08/17 03:00 98/47 05/08/17 03:00 116 16 98/47 100 Bi-pap 40 05/08/17 02:45 114 16 93/57 100 Bi-pap 40 05/08/17 02:38 69/40 05/08/17 02:30 111 16 90/58 100 Bi-pap 40 05/08/17 02:00 110 16 64/40 100 Bi-pap 40 05/08/17 01:30 110 16 83/41 100 Bi-pap 40 2/18 01:27 115 20 100 Facial 40 218 01:00 97.0 111 16 81/42 99 Bi-pap 2 00:30 115 15 57/25 100 Bi-pap 218 00:00 115 18 00:00 98.0 121 16 69/39 99 Bi-pap 218 23:30 119 15 73/33 100 Bi-pap 2818 23:14 121 17 99 Facial 40 218 23:00 100.0 127 16 72/45 99 Bi-pap 2/18 22:54 102.0 05/07/17 22:30 138 15 57/46 98 Bi-pap 218 22:00 102.0 147 12 74/34 99 Bi-pap 218 21:30 151 15 72/47 99 Bi-pap 2/18 21:07 156 21 99 Facial 40 05/07/17 21:00 104.0 152 12 74/51 99 Bi-pap 218 20:30 154 15 72/55 99 Bi-pap 218 20:00 102.0 153 12 75/54 98 Bi-pap 218 20:00 148 18 19:30 150 15 72/55 99 Bi-pap 218 19:06 135 20 100 40 218 19:06 Bi-pap 218 19:06 Bi-pap 218 19:00 133 15 80/56 100 Bi-pap 28/18 18:00 133 12 84/59 87 Bi-pap 28/18 17:00 97.7 125 12 89/63 100 Bi-pap 28/18 16:00 97.7 125 14 88/63 100 Bi-pap 28/18 16:00 140 28/18 15:00 125 14 84/62 100 Bi-pap 28/18 14:52 112 22 100 Facial 40 2/8/18 14:00 125 14 99/62 100 Bi-pap 28/18 13:00 140 25 89/62 99 Bi-pap 28/18 12:30 128 18 84/63 100 Bi-pap 2/8/18 12:00 99.6 122 14 91/63 99 Bi-pap 05/07/17 12:00 135 05/07/17 11:30 129 18 78/26 100 Bi-pap 05/07/17 11:30 128 18 97 Full Face 40 05/07/17 11:00 132 14 90/63 100 Nasal Cannula 3.0 05/07/17 10:30 129 18 98/64 100 Nasal Cannula 3.0 05/07/17 10:00 124 14 98/64 99 Nasal Cannula 3.0 05/07/17 09:30 134 18 98/64 100 Nasal Cannula 3.0 05/07/17 09:24 131 05/07/17 09:00 124 18 93/66 100 Nasal Cannula 3.0 05/07/17 08:30 132 18 93/66 100 Nasal Cannula 3.0 Intake and Output 05/07/17 05/08/17 19:00 07:00 Intake Total 204.94 ml 213.26 ml Balance 204.94 ml 213.26 ml Free Water 0 ml 0 ml IV Total 204.94 ml 213.26 ml # Voids 6 # Bowel Movements 3 Objective WDWN on BIPAP NAD reduced breath sounds bilaterally with some rhonchi S1S2 tachy without MRG NABS nontender no HSM no CCE altered Laboratory Tests 05/07/17 10:40: Arterial Blood pH 7.393, Arterial Blood Partial Pressure CO2 56.7*H, Arterial Blood Partial Pressure O2 116.3H, Arterial Blood HCO3 33.8H, Arterial Blood Oxygen Saturation 97.8, Arterial Blood Base Excess 7.6, Itz Test Positive 05/07/17 11:40: White Blood Count 18.3H, Red Blood Count 2.96L, Hemoglobin 9.4L, Hematocrit 28.3L, Mean Corpuscular Volume 96, Mean Corpuscular Hemoglobin 31.8H, Mean Corpuscular Hemoglobin Concent 33.3, Red Cell Distribution Width 16.1H, Platelet Count 27L, Mean Platelet Volume 15.6H, Neutrophils (%) (Auto) , Lymphocytes (%) (Auto) , Monocytes (%) (Auto) , Eosinophils (%) (Auto) , Basophils (%) (Auto) , Differential Total Cells Counted 100, Neutrophils % ( Manual) 87H, Lymphocytes % (Manual) 2L, Monocytes % (Manual) 7, Eosinophils % ( Manual) 0, Basophils % (Manual) 0, Band Neutrophils 4, Platelet Estimate DecreasedL, Platelet Morphology Normal, Polychromasia 1+, Hypochromasia 1+, Anisocytosis 1+, Sodium Level 145, Potassium Level 4.7, Chloride Level 110H, Carbon Dioxide Level 32, Anion Gap 3L, Blood Urea Nitrogen 37H, Creatinine 0.8, Estimat Glomerular Filtration Rate > 60, Glucose Level 163H, Calcium Level 8.3L , Total Bilirubin 0.6, Aspartate Amino Transf (AST/SGOT) 55H, Alanine Aminotransferase (ALT/SGPT) 29, Alkaline Phosphatase 127H, Total Protein 5.9L, Albumin 1.8L, Globulin 4.1, Albumin/Globulin Ratio 0.4L 05/07/17 13:15: Arterial Blood pH 7.420, Arterial Blood Partial Pressure CO2 55.4*H, Arterial Blood Partial Pressure O2 64.9L, Arterial Blood HCO3 35.1H, Arterial Blood Oxygen Saturation 92.6, Arterial Blood Base Excess 9.3, Itz Test Positive 05/08/17 05:15: White Blood Count 26.2*H, Red Blood Count 2.38L, Hemoglobin 7.7L, Hematocrit 22.9L, Mean Corpuscular Volume 97, Mean Corpuscular Hemoglobin 32.3H, Mean Corpuscular Hemoglobin Concent 33.4, Red Cell Distribution Width 16.6H, Platelet Count 18L, Mean Platelet Volume 13.2H, Neutrophils (%) (Auto) , Lymphocytes (%) (Auto) , Monocytes (%) (Auto) , Eosinophils (%) (Auto) , Basophils (%) (Auto) , Neutrophils % (Manual) [Pending], Lymphocytes % (Manual) [Pending], Platelet Estimate [Pending], Platelet Morphology [Pending], Sodium Level 148H, Potassium Level 5.2H, Chloride Level 113H, Carbon Dioxide Level 28, Anion Gap 7, Blood Urea Nitrogen 61H, Creatinine 1.5#H, Estimat Glomerular Filtration Rate 34.9, Glucose Level 180H, Calcium Level 7.8L, Total Bilirubin 0.7, Aspartate Amino Transf (AST/SGOT) 114H, Alanine Aminotransferase (ALT/SGPT ) 39, Alkaline Phosphatase 188H, Total Protein 5.0L, Albumin 1.5L, Globulin 3.5 , Albumin/Globulin Ratio 0.4L, Lactic Acid Level 4.50H, Magnesium Level 2.2 Current Medications Medications (Trade) Dose Ordered Sig/Matthieu Route PRN Reason Start Time Stop Time Status Last Admin Dose Admin Acetaminophen (Tylenol) 650 mg Q4H PRN RECTAL Mild Pain (Pain Scale 1-3) 05/05/17 14:30 06/04/17 14:29 05/06/17 14:51 Acetaminophen (Tylenol) 650 mg Q6H PRN ORAL Mild Pain/Temp > 100.5 05/02/17 21:34 06/01/17 21:33 05/07/17 21:31 Amiodarone HCl 900 mg/Dextrose 500 ml @ 0 mls/hr Q24H IV 05/07/17 13:30 05/07/17 15:20 Chlorhexidine Gluconate (Kendra-Hex 2%) 1 applic DAILY@2000 TOPIC 05/08/17 20:00 06/07/17 19:59 Digoxin (Lanoxin) 0.125 mg DAILY ORAL 05/03/17 09:00 05/27/17 08:59 05/07/17 09:24 Ertapenem 1 gm/ Sodium Chloride 55 ml @ 110 mls/hr Q24H IVPB 05/07/17 17:00 05/12/17 23:59 05/07/17 17:32 Folic Acid (Folate) 1 mg DAILY ORAL 05/03/17 09:00 05/27/17 10:59 05/07/17 09:25 Gabapentin (Neurontin) 300 mg QHS ORAL 05/07/17 21:00 06/06/17 20:59 Lorazepam (Ativan 2mg/ml 1ml) 1 mg Q4H PRN IM agitation 05/05/17 22:30 05/12/17 22:29 Norepinephrine Bitartrate 4 mg/ Dextrose 250 ml @ 0 mls/hr Q24H IV 05/07/17 23:00 06/06/17 22:59 05/08/17 02:38 Olanzapine (ZyPREXA) 10 mg HSPRN PRN ORAL Agitation 05/03/17 12:30 05/27/17 12:29 Ondansetron HCl (Zofran) 4 mg Q6H PRN IVP Nausea & Vomiting 05/02/17 23:00 05/26/17 16:59 Prednisone (predniSONE) 10 mg DAILY ORAL 05/04/17 09:00 06/03/17 08:59 05/07/17 09:25 Salmeterol Xinafoate/ Fluticasone (Advair 250/50 Diskus) 1 puffs BIDRT INH 05/02/17 22:00 05/28/17 09:59 05/05/17 09:55 Tiotropium [place] (Spiriva Inhaler) 1 puff DAILY@1000 INH 05/03/17 10:00 05/28/17 09:59 05/05/17 10:00 Valproic Acid (Depakene) 500 mg DAILY NG 05/07/17 09:00 06/06/17 08:59 05/07/17 09:26 Valproic Acid (Depakene) 750 mg BEDTIME NG 05/06/17 21:00 06/05/17 20:59 05/07/17 21:30 SPENCER GUERRERO May 08, 2017 08:30
[2017-05-08] MEDS: Advair 250/50 Inhaler - 14 dose INH SCH ×2 (09:22→20:55)
[2017-05-08] MEDS: Digoxin 0.125mg tab ORAL SCH (09:43)
[2017-05-08] MEDS: Valproic Acid 250mg/5ml Liquid NG SCH ×2 (09:43→20:25)
--- NOTE | 2017-05-08 10:36 | Diagnostic Imaging Report ---
Indication: Dyspnea Technique: One view of the chest Comparison: May 06, 2017 Findings: Interim near complete clearing are opacities in the right lung, with minimal residual atelectasis at the right lung base. Parenchymal infiltrates and atelectasis in the left lung have improved, but there is some residual. There is decreased but persistent small left pleural effusion. Stable satisfactory position of nasogastric tube Impression: Improved but persistent bilateral parenchymal disease, and left pleural fluid, as described, over 2 days
[2017-05-08] MEDS ORDERED: Vancomycin 1gm in D5W 275ml IVPB SCH (13:00)
--- NOTE | 2017-05-08 14:17 | Infectious Diseases Prog Note ---
Assessment/Plan Assessment/Plan A; COPD exacerbation Pneumonia Leukocytosis Atrial fibrillation with RVR Anemia GI bleeding Bipolar disorder P; Continue Ertapenem, Vancomycin Poor prognosis DNR/DNI Subjective ROS Limited/Unobtainable: Yes Allergies: Coded Allergies: No Known Allergies (Unverified , 04/25/17) Objective Vital Signs Last 24 Hour Vital Signs Date Time Temp Pulse Resp B/P (MAP) Pulse Ox O2 Delivery O2 Flow Rate FiO2 05/08/17 14:00 84/55 05/08/17 14:00 112 20 84/55 100 Bi-pap 40 05/08/17 13:30 111 13 94/56 100 Bi-pap 40 05/08/17 13:00 102/63 05/08/17 13:00 112 13 102/63 100 Bi-pap 40 05/08/17 12:46 115 18 100 Facial 40 05/08/17 12:30 110 20 102/63 100 Bi-pap 40 05/08/17 12:00 98.5 109 23 94/56 100 Bi-pap 40 05/08/17 12:00 96 05/08/17 12:00 94/56 05/08/17 11:30 110 22 103/55 100 Bi-pap 40 05/08/17 11:00 109 23 103/62 100 Bi-pap 40 05/08/17 11:00 103/62 05/08/17 10:40 111 20 100 Facial 40 05/08/17 10:30 111 23 96/60 100 Bi-pap 40 05/08/17 10:00 96/56 05/08/17 10:00 109 24 96/56 100 Bi-pap 40 05/08/17 09:43 108 05/08/17 09:30 110 20 99/65 100 Bi-pap 40 05/08/17 09:00 96/54 05/08/17 09:00 111 21 96/54 100 Bi-pap 40 05/08/17 08:48 Bi-pap 05/08/17 08:48 Bi-pap 05/08/17 08:48 103 22 100 Facial 40 05/08/17 08:30 107 22 96/45 98 Bi-pap 40 05/08/17 08:00 90/42 05/08/17 08:00 96.7 108 20 90/42 99 Bi-pap 40 05/08/17 07:49 104 05/08/17 07:30 107 16 93/47 99 Bi-pap 40 05/08/17 07:24 105 20 100 Facial 40 05/08/17 07:00 121 16 94/46 100 Bi-pap 40 05/08/17 07:00 103/48 05/08/17 06:30 115 16 96/51 100 Bi-pap 40 05/08/17 06:00 112 16 101/47 100 Bi-pap 40 05/08/17 06:00 101/47 05/08/17 05:30 112 16 91/52 100 Bi-pap 40 05/08/17 05:00 102/64 05/08/17 05:00 115 16 102/64 100 Bi-pap 40 05/08/17 04:52 121 30 100 Facial 40 05/08/17 04:30 116 16 94/62 100 Bi-pap 40 05/08/17 04:00 120 05/08/17 04:00 126 16 91/47 100 Bi-pap 05/08/17 04:00 91/47 05/08/17 03:30 116 16 94/59 100 Bi-pap 40 05/08/17 03:15 116 16 103/68 100 Bi-pap 40 05/08/17 03:07 128 22 100 Facial 40 05/08/17 03:00 98/47 05/08/17 03:00 116 16 98/47 100 Bi-pap 40 05/08/17 02:45 114 16 93/57 100 Bi-pap 40 05/08/17 02:38 69/40 05/08/17 02:30 111 16 90/58 100 Bi-pap 40 05/08/17 02:00 110 16 64/40 100 Bi-pap 40 05/08/17 01:30 110 16 83/41 100 Bi-pap 40 05/08/17 01:27 115 20 100 Facial 40 05/08/17 01:00 97.0 111 16 81/42 99 Bi-pap 05/08/17 00:30 115 15 57/25 100 Bi-pap 05/08/17 00:00 115 05/08/17 00:00 98.0 121 16 69/39 99 Bi-pap 05/07/17 23:30 119 15 73/33 100 Bi-pap 05/07/17 23:14 121 17 99 Facial 40 05/07/17 23:00 100.0 127 16 72/45 99 Bi-pap 05/07/17 22:54 102.0 05/07/17 22:30 138 15 57/46 98 Bi-pap 05/07/17 22:00 102.0 147 12 74/34 99 Bi-pap 05/07/17 21:30 151 15 72/47 99 Bi-pap 05/07/17 21:07 156 21 99 Facial 40 05/07/17 21:00 104.0 152 12 74/51 99 Bi-pap 05/07/17 20:30 154 15 72/55 99 Bi-pap 05/07/17 20:00 102.0 153 12 75/54 98 Bi-pap 05/07/17 20:00 148 05/07/17 19:30 150 15 72/55 99 Bi-pap 05/07/17 19:06 135 20 100 40 05/07/17 19:06 Bi-pap 05/07/17 19:06 Bi-pap 05/07/17 19:00 133 15 80/56 100 Bi-pap 05/07/17 18:00 133 12 84/59 87 Bi-pap 05/07/17 17:00 97.7 125 12 89/63 100 Bi-pap 05/07/17 16:00 97.7 125 14 88/63 100 Bi-pap 05/07/17 16:00 140 05/07/17 15:00 125 14 84/62 100 Bi-pap 05/07/17 14:52 112 22 100 Facial 40 Height (Feet): 5 Height (Inches): 0.00 Weight (Pounds): 105 HEENT: other - on BIPAP Respiratory/Chest: decreased breath sounds Cardiovascular: tachycardia Abdomen: soft, non tender Extremities: no edema, other - cold, cyanotic exterities Neurologic/Psychiatric: unresponsiveness Laboratory Tests Test 05/08/17 05:15 05/08/17 10:58 05/08/17 12:40 White Blood Count 26.2 K/UL (4.8-10.8) *H Red Blood Count 2.38 M/UL (4.20-5.40) L Hemoglobin 7.7 G/DL (12.0-16.0) L Hematocrit 22.9 % (37.0-47.0) L Mean Corpuscular Volume 97 FL (80-99) Mean Corpuscular Hemoglobin 32.3 PG (27.0-31.0) H Mean Corpuscular Hemoglobin Concent 33.4 G/DL (32.0-36.0) Red Cell Distribution Width 16.6 % (11.6-14.8) H Platelet Count 18 K/UL (150-450) L Mean Platelet Volume 13.2 FL (6.5-10.1) H Neutrophils (%) (Auto) % (45.0-75.0) Lymphocytes (%) (Auto) % (20.0-45.0) Monocytes (%) (Auto) % (1.0-10.0) Eosinophils (%) (Auto) % (0.0-3.0) Basophils (%) (Auto) % (0.0-2.0) Differential Total Cells Counted 100 Neutrophils % (Manual) 86 % (45-75) H Lymphocytes % (Manual) 2 % (20-45) L Monocytes % (Manual) 6 % (1-10) Eosinophils % (Manual) 0 % (0-3) Basophils % (Manual) 0 % (0-2) Band Neutrophils 6 % (0-8) Platelet Estimate Decreased L Platelet Morphology Giant Platelets Occasional Hypochromasia 1+ Anisocytosis 1+ Sodium Level 148 MMOL/L (136-145) H Potassium Level 5.2 MMOL/L (3.5-5.1) H Chloride Level 113 MMOL/L (98-107) H Carbon Dioxide Level 28 MMOL/L (21-32) Anion Gap 7 mmol/L (5-15) Blood Urea Nitrogen 61 mg/dL (7-18) H Creatinine 1.5 MG/DL (0.55-1.30) #H Estimat Glomerular Filtration Rate 34.9 mL/min (>60) Glucose Level 180 MG/DL (74-106) H Lactic Acid Level 4.50 mmol/L (0.66-2.22) H 7.30 mmol/L (0.66-2.22) H Calcium Level 7.8 MG/DL (8.5-10.1) L Magnesium Level 2.2 MG/DL (1.8-2.4) Total Bilirubin 0.7 MG/DL (0.2-1.0) Aspartate Amino Transf (AST/SGOT) 114 U/L (15-37) H Alanine Aminotransferase (ALT/SGPT) 39 U/L (12-78) Alkaline Phosphatase 188 U/L (46-116) H Total Protein 5.0 G/DL (6.4-8.2) L Albumin 1.5 G/DL (3.4-5.0) L Globulin 3.5 g/dL Albumin/Globulin Ratio 0.4 (1.0-2.7) L Arterial Blood pH 7.361 (7.350-7.450) Arterial Blood Partial Pressure CO2 48.5 mmHg (35.0-45.0) H Arterial Blood Partial Pressure O2 102.5 mmHg (75.0-100.0) H Arterial Blood HCO3 26.8 mmol/L (22.0-26.0) H Arterial Blood Oxygen Saturation 96.7 % (92.0-98.0) Arterial Blood Base Excess 1.1 Itz Test Positive Current Medications Medications (Trade) Dose Ordered Sig/Matthieu Route PRN Reason Start Time Stop Time Status Last Admin Dose Admin Acetaminophen (Tylenol) 650 mg Q4H PRN RECTAL Mild Pain (Pain Scale 1-3) 05/05/17 14:30 06/04/17 14:29 05/06/17 14:51 Acetaminophen (Tylenol) 650 mg Q6H PRN ORAL Mild Pain/Temp > 100.5 05/02/17 21:34 06/01/17 21:33 05/07/17 21:31 Chlorhexidine Gluconate (Kendra-Hex 2%) 1 applic DAILY@2000 TOPIC 05/08/17 20:00 06/07/17 19:59 Digoxin (Lanoxin) 0.125 mg DAILY ORAL 05/03/17 09:00 05/27/17 08:59 05/08/17 09:43 Ertapenem 1 gm/ Sodium Chloride 55 ml @ 110 mls/hr Q24H IVPB 05/07/17 17:00 05/12/17 23:59 05/07/17 17:32 Folic Acid (Folate) 1 mg DAILY ORAL 05/03/17 09:00 05/27/17 10:59 05/08/17 09:44 Gabapentin (Neurontin) 300 mg QHS ORAL 05/07/17 21:00 06/06/17 20:59 Lorazepam (Ativan 2mg/ml 1ml) 1 mg Q4H PRN IM agitation 05/05/17 22:30 05/12/17 22:29 Norepinephrine Bitartrate 4 mg/ Dextrose 250 ml @ 0 mls/hr Q24H IV 05/07/17 23:00 06/06/17 22:59 05/08/17 02:38 Olanzapine (ZyPREXA) 10 mg HSPRN PRN ORAL Agitation 05/03/17 12:30 05/27/17 12:29 Ondansetron HCl (Zofran) 4 mg Q6H PRN IVP Nausea & Vomiting 05/02/17 23:00 05/26/17 16:59 Prednisone (predniSONE) 5 mg DAILY ORAL 05/09/17 09:00 06/08/17 08:59 UNV Salmeterol Xinafoate/ Fluticasone (Advair 250/50 Diskus) 1 puffs BIDRT INH 05/02/17 22:00 05/28/17 09:59 05/05/17 09:55 Sodium Chloride 1,000 ml @ 100 mls/hr Q10H IV 05/08/17 11:30 06/07/17 11:29 05/08/17 11:18 Tiotropium [place] (Spiriva Inhaler) 1 puff DAILY@1000 INH 05/03/17 10:00 05/28/17 09:59 05/05/17 10:00 Valproic Acid (Depakene) 500 mg DAILY NG 05/07/17 09:00 06/06/17 08:59 05/08/17 09:43 Valproic Acid (Depakene) 750 mg BEDTIME NG 05/06/17 21:00 06/05/17 20:59 05/07/17 21:30 Vancomycin HCl (Vanco rx to dose) 1 ea DAILY PRN MISC Per rx protocol 05/08/17 10:30 06/07/17 10:29 Vancomycin HCl 1 gm/Dextrose 275 ml @ 183.708 mls/hr Q36H IVPB 05/08/17 13:00 05/13/17 12:59 05/08/17 13:58 MINH GREENBERG May 08, 2017 14:17
[2017-05-08] MEDS: Ertapenem 1 GM in NS 55 ML IVPB SCH (17:42)
[2017-05-08] MEDS ORDERED: Dyna-Hex 2% Top Sol 2oz TOPIC SCH (20:00)
[2017-05-08] MEDS ORDERED: Amiodarone 900 MG in D5W 500ml 482 ML IV SCH (21:15)
--- NOTE | 2017-05-08 23:12 | Consultation ---
Consult Note Assessment/Plan Pt was seen today in Bioethics Consultation. In attendance were Dr. Beckman, chair; social work/case management, the CNO, and myself. Pt has multiple major medical problems including COPD, impending respiratory failure, cardiac arrhythmias, and altered mental status. There is no family or patient chain sales representative known to his current hospital caregivers. The Committee unanimously concluded that, in view of the above, continued aggressive care would be futile, and that DNR/DNI/allow natural would be the most humane approach available in this case. ELIZABETH MC May 08, 2017 23:12
[2017-05-09] VITALS: BP 72/31
[2017-05-09 00:30] VITALS: BP 66/44
[2017-05-09 01:00] VITALS: BP 42/23
[2017-05-09] MEDS ORDERED: NS 500ML ONE (01:09)
[2017-05-09] MEDS ORDERED: 1/2 NS 1000ml IV ONE (01:09)
[2017-05-09 01:10] VITALS: BP 0/0
--- NOTE | 2017-05-09 06:15 | Progress Note ---
DATE: 05/08/2017 CARDIOLOGY PROGRESS NOTE SUBJECTIVE: The patient's condition remains critical. Prognosis guarded. She is in the intensive care unit. She remains on pressor support, IV amiodarone for rapid atrial fibrillation, and BiPAP. Bioethics consult was obtained and reviewed. All parties concur with DNR/DNI as appropriate in this clinical setting; however, otherwise intensity of care will be continued. OBJECTIVE: VITAL SIGNS: Blood pressure 93/47, pulse 107, respiratory rate 16, and T-max 104. LUNGS: Coarse breath sounds. Scattered rhonchi. HEART: Irregularly irregular rhythm. Normal S1 and S2. ABDOMEN: Soft. EXTREMITIES: No edema. Ischemic changes of the hands and feet. LABORATORY AND DIAGNOSTIC DATA: Arterial duplex study noted. Labs notable for increased white count to 26,000 and hemoglobin 7.7. Potassium 5.2, sodium 148, BUN 61, and creatinine 1.5. IMPRESSION: 1. Critical and guarded. 2. Sepsis with shock. 3. COPD exacerbation. 4. Respiratory failure. 5. Rapid atrial fibrillation. 6. Thrombocytopenia. 7. Anemia. 8. GI bleeding. 9. Vitamin deficiency. 10. Homelessness. PLAN: 1. Pressors. 2. IV amiodarone. 3. BiPAP. 4. Broadened antibiotic spectrum. 5. Warming measures of extremities. 6. Maximize perfusion of the distal extremities. 7. DNR/DNI. Jeremiah Harvey M.D. DR: EMILY JOB#: [id number] CC:
--- NOTE | 2017-05-09 06:45 | Progress Note ---
DATE: 05/08/2017 SUBJECTIVE: The patient is calm. No behavior issues at this time, however, has episodes of agitation and has waxing and waning consciousness. was not able to answer any questions. MENTAL STATUS EXAMINATION: The patient is lethargic. She has waxing and waning consciousness. Mood is neutral. She has episodes of agitation. Affect is constricted. Congruent with mood. Thought process, there is a paucity of thought content. Cognition is impaired. ASSESSMENT: 1. Encephalopathy. 2. Sepsis shock. 3. Atrial fibrillation. 4. Chronic obstructive pulmonary disease. 5. Thrombocytopenia. PLAN: 1. We will continue with Depakote and Zyprexa. 2. We will continue to follow and readjust medications. Alex Guerra M.D. DR: Nadya JOB#: [id number] CC:
--- NOTE | 2017-05-12 08:59 | Discharge Summary ---
Discharge Summary Hospital Course Date of Admission Apr 25, 2017 at 15:50 Date of Discharge May 09, 2017 at 01:10 Admitting Diagnosis DYSPNEA HPI Milan Acevedo is a 66 year old female who was admitted on Apr 25, 2017 at 15:50 for Dyspnea Hospital Course summary #[id number] Discharge Discharge Disposition Patient Discharge Diagnoses: Discharge Instructions Discharge Instructions Special Instructions I have been assigned to complete a D/C Summary on this account. I was not involved in the patient management Mikki Salas NP (Vanchtein) May 12, 2017 08:59
--- NOTE | 2017-05-12 13:13 | Diagnostic Imaging Report ---
APPROVED REPORT CPT Code: 10760 Symptoms Comments: AMS Comments Hypotension RIGHT LEG: Common femoral artery waveform analysis is within normal limits at rest. Color flow duplex sonography reveals calcification throughout the superficial femoral and popliteal arteries. There is no evidence of stenosis or occlusion within these segments. The tibioperoneal trunk was not well visualized. The distal posterior tibial, anterior tibial and dorsalis pedis arteries are also mildly calcified. Doppler tibial artery waveform analysis is compatible with minimal ischemia. LEFT LEG: Common femoral arteries waveform analysis is within normal limits at rest. Color flow duplex sonography reveals calcification throughout the superficial femoral and popliteal arteries. The popliteal and tibioperoneal trunk are patent. No flow was detected in the dorsalis pedis artery. The posterior and anterior tibial arteries are patent. Doppler tibial artery waveform analysis is compatible with minimal ischemia.
--- NOTE | 2017-05-12 23:30 | Discharge Summary 2 SIG ---
DATE OF ADMISSION: 04/25/2017 DATE OF DISCHARGE: 05/09/2017 SUMMARY REASON FOR ADMISSION: The patient is a 66-year-old female with past medical history significant for chronic obstructive pulmonary disease, atrial fibrillation, bipolar disorder, was recently hospitalized at [facility] and discharged to [facility]. She was hospitalized with Staph aureus sepsis and chronic obstructive pulmonary disease exacerbation as well as rapid atrial fibrillation. She was also noted to have hyponatremia, history of cocaine abuse with MRSA bacteremia sepsis. Upon presentation to emergency department, the patient was short of breath, congested, complaining of cough and muscle aches. Workup revealed chest x-ray with possible infiltrate. The patient was wheezing. Sodium was 128. Troponin was negative. White blood count was 10.9, hemoglobin 9.4. The patient admitted with 1. Chronic obstructive pulmonary disease exacerbation. 2. Atrial fibrillation with increased ventricular response. 3. Possible pneumonia with recent hospitalization. 4. History of cocaine abuse. 5. Recent MRSA bacteremia. 6. Paroxysmal bronchospasm. 7. Bipolar disorder. 8. Hyponatremia. HOSPITAL COURSE: The patient admitted. The patient started on supplemental oxygen and pulmonary toilet with bronchodilator. The patient started on the IV steroids and empiric antibiotics. The patient pancultured. Digoxin was started for rate control. No anticoagulation given compliance issue. Followup with chest x-ray. Pulmonology, psychiatrist, and ID consult were requested. The patient was started on saline hydration. Renal parameters and electrolytes were closely monitored. Electrolytes corrected as needed. Influenza screen test initially was negative. Stool for C. difficile was negative. Sputum culture revealed Klebsiella ESBL. ID closely followed medication regimen. The patient was recovering for chronic obstructive pulmonary disease exacerbation and steroids were tapered. Table Inspector closely followed. The patient followup with chest x-ray. The patient continued to be anemic and anemia workup was initiated. Anemia workup revealed iron-deficiency anemia along with folate deficiency. The patient started with iron and folate. Hemoglobin and hematocrit was closely monitored. Stool OB x1 was negative. Second time was positive. Goal was to keep hemoglobin above 7.5. The patient received a total of two units of packed red blood cells. No evidence of acute bleeding. The patient continued to be in rapid ventricular response. Initially, the patient was on digoxin and then amiodarone ordered, then switched to the Cardizem. Rate continued to be uncontrolled. The patient subsequently started on Cardizem and amiodarone ip and was transferred to ICU for further management. The patient was afebrile. Blood pressure was dropping. The patient required pressors for hemodynamic support. For rate control, the patient was on digoxin, Cardizem, and amiodarone drip. Additional supplements provided as per dietary recommendation. Before patient was lethargic. The patient was started on the oral intake with aspiration precaution. Video swallow evaluation was pending. The patient was becoming more lethargic and appeared to be in shock. Blood pressure was dropping down. Levophed started. The patient was transferred to ICU for further management. The patient's condition remained critical and guarded. The patient exhibited multiorgan failure. On 05/08/2017 lactic acid 4.5, repeated 7.3. Sodium , potassium 5.2. The patient with evidence of acute renal failure possibly acute tubular necrosis with BUN up to 61 and creatinine up to 1.5 from previous 0.8. WBCs up to 26.2 hemoglobin down to 7.7 and hematocrit 22.9. Of note, initial urine tox screen was negative. Condition remained critical and guarded and based on the patient's multiorgan system disease poor prognosis and performance status, recommended DNR on this patient. Subsequently the patient was on hypotonic hydration. No anticoagulation was considered given bleeding risk and compliance issues. Platelets were down to 18. Subsequently the patient had bioethics committee the same day on 05/08/2017. According to bioethics committee decision, committee concluded that in view of the multiple major medical problems including chronic obstructive pulmonary disease, impending respiratory failure, cardiac arrhythmia, altered mental status, and the patient had no family or admissions representative known to her current hospital caregivers. Continue aggressive care would be futile and DNR/DNI status would allow natural would be the most human approach available in this case. Of note, the patient's respiratory status worsened as well. The patient required BiPAP and FiO2 was increased to 100%. In summary, the patient had respiratory failure, renal failure, sepsis with leukocytosis, thrombocytopenia, acute atrial fibrillation with rapid ventricular response. Mental status, the patient was lethargic as well the patient was in shock. So the patient's code status subsequently changed on 05/08/2017 to DNR/ DNI. All the measures were continued. The patient was on Levophed drip on the max dose as well as amiodarone drip. FiO2 was increased to 100% on the BiPAP. Blood pressure was going down and the patient subsequently was pronounced on 05/09/2017 at 1:10. Cause of cardiopulmonary arrest. FINAL DIAGNOSES: 1. Sepsis with shock. 2. Multiorgan system disease. 3. Encephalopathy. 4. Thrombocytopenia. 5. Acute on chronic diastolic congestive heart failure. 6. Atrial fibrillation with rapid ventricular response. 7. Pneumonia with ESBL Klebsiella pneumoniae. 8. Hyponatremia. 9. History of cocaine abuse. 10. Recent MRSA bacteremia. 11. Bipolar disorder. 12. Chronic obstructive pulmonary disease exacerbation. 13. Acute on chronic diastolic heart failure. 14. Severe protein-calorie malnutrition. 15. Thrombocytopenia. 16. Severe anemia requiring blood transfusion. 17. Iron-deficiency anemia. 18. Folate-deficiency anemia. 19. Possible gastrointestinal bleeding. 20. Electrolyte imbalances ( , hypomagnesemia, hyponatremia). 21. Acute respiratory failure. I have been assigned to dictate discharge summary on this account and I was not involved in the patient's management. Mikki Olverawestchester square medical centerReji N.PZaina DR: Kwaku JOB#: [id number] CC:
--- NOTE | 2017-05-12 23:45 | Discharge Summary 2 SIG ---
SUMMARY DATE OF ADMISSION: 04/25/2017 DATE OF EXPIRATION: 05/09/2017 REASON FOR ADMISSION: 66-year-old female with past medical history significant for chronic obstructive pulmonary disease, atrial fibrillation, bipolar disorder, history of cocaine abuse, was recently hospitalized at [facility] and was discharged to [facility]. She was hospitalized with Staph aureus sepsis and chronic obstructive pulmonary disease exacerbation as well as rapid atrial fibrillation.Upon presentation to emergency department, the patient was short of breath, congested, wheezing, complained of cough and muscle aches. Workup revealed chest x-ray with possible infiltrate. Sodium -128. Troponin was negative. White blood count - 10.9, hemoglobin -9.4. ECG with A fibrillation with rapid ventricular rate. Urine tox screen was negative. The patient was admitted for further management. ADMITTING DIAGNOSIS: 1. Chronic obstructive pulmonary disease exacerbation. 2. Atrial fibrillation with increased ventricular response. 3. Possible pneumonia with recent hospitalization. 4. History of cocaine abuse. 5. Recent MRSA bacteremia. 6. Paroxysmal bronchospasm. 7. Bipolar disorder. 8. Hyponatremia. HOSPITAL COURSE: The patient admitted. The patient started on supplemental oxygen and pulmonary toilet with bronchodilator. The patient started on the IV steroids and empiric antibiotics. The patient was pancultured. Digoxin was started for rate control. No anticoagulation was given due to compliance issue. Pulmonology, psychiatric, and ID consults were requested. The patient was started on saline hydration. Renal parameters and electrolytes were closely monitored. Electrolytes corrected as needed. Influenza screen test initially was negative. Stool for C. difficile was negative. Sputum culture revealed Klebsiella ESBL. ID closely followed . Antibiotic regimen was provided as per ID management. The patient was recovering for chronic obstructive pulmonary disease exacerbation and steroids were tapered. [employer] closely followed. The patient was followup with chest x-ray. The patient continued to be anemic. Anemia workup revealed iron-deficiency anemia along with folate deficiency. The patient was started with iron and folate supplements. Hemoglobin and hematocrit were closely monitored. Stool OB x1 was negative. Second specimen for stool OB was positive. Goal was to keep hemoglobin above 7.5. The patient received total of two units of packed red blood cells. No evidence of acute bleeding. Nutritional supplements provided as per dietary recommendations. Patient was started on trial of oral intake with strict aspiration precautions. Video swallow evaluation was pending. The patient continued to be in rapid ventricular response. Initially, the patient was on digoxin and then amiodarone added for rate control. Rate control was still not achieved, patient was started on Amiodarone drip and was transferred to ICU for further management. The patient was afebrile. Blood pressure was dropping. The patient was becoming more lethargic and required pressors for hemodynamic support. Levophed started. The patient's condition remained critical and guarded. The patient exhibited multiorgan failure. Respiratory status worsened . The patient required BiPAP and FiO2 was increased to 100%. On 05/08/2017 lactic acid- 4.5, repeated -7.3. Sodium , potassium -5.2. The patient with evidence of acute renal failure possibly acute tubular necrosis with BUN -61 and creatinine- 1.5 from previous creatinine -0.8. WBC- 26.2, hemoglobin -7.7 and hematocrit - 22.9. Platelets -18. Patient's condition remained critical and guarded and based on the patient's multiorgan system disease, poor prognosis and performance status, all consultants recommended DNR status on this patient. Bioethics recommendations were requested for further management. Bioethics committee meeting was held on the same day, 05/08/2017. According to bioethics committee decision, committee concluded that in view of the multiple major medical problems including chronic obstructive pulmonary disease, impending respiratory failure, cardiac arrhythmia, altered mental status, continue further aggressive care would be futile and DNR/DNI status would allow natural , which would be the most human approach available in this case. In summary, the patient had respiratory failure, acute renal failure, sepsis with leukocytosis, thrombocytopenia, acute atrial fibrillation with rapid ventricular response. The patient was lethargic and in shock. Code status subsequently changed on 05/08/2017 to DNR/ DNI. The patient was on Levophed drip on the max dose as well as amiodarone drip. FiO2 was increased to 100% on the BiPAP. Blood pressure was gradually decreasing. The patient subsequently was pronounced on 05/09/2017 at 1:10. Cause of : cardiopulmonary arrest. FINAL DIAGNOSES: 1. Sepsis with shock. 2. Multiorgan system disease. 3. Encephalopathy. 4. Thrombocytopenia. 5. Acute on chronic diastolic congestive heart failure. 6. Atrial fibrillation with rapid ventricular response. 7. Pneumonia with ESBL Klebsiella pneumoniae. 8. Hyponatremia. 9. History of cocaine abuse. 10. Recent MRSA bacteremia. 11. Bipolar disorder. 12. Chronic obstructive pulmonary disease exacerbation. 13. Acute on chronic diastolic heart failure. 14. Severe protein-calorie malnutrition. 15. Thrombocytopenia. 16. Severe anemia requiring blood transfusion. 17. Iron-deficiency anemia. 18. Folate-deficiency anemia. 19. Possible gastrointestinal bleeding. 20. Electrolyte imbalances 21. Acute respiratory failure. Jeremiah Harvey M.D. I have been assigned to dictate discharge summary on this account and I was not involved in the patient's management. Mikki OlveraCentral New York Psychiatric CenterReji N.P. DR: Kwaku JOB#: [id number] CC: TIM
== END 2017-05-09 01:10 | disposition expired | DRG 140 ==
LOC: EDBD 13:14 → EMR 13:30 → EDBEDREQ 13:42 → 2E 15:50 → EDBEDREQ 15:56 → 2E 17:55 → ICU 05-02 19:34
PROC: 06HM33Z Insertion of Infusion Device into Right Femoral Vein, Percutaneous Approach (ICD-10-PCS; principal; 2017-05-08)
DX: J44.0 Chronic obstructive pulmonary disease with (acute) lower respiratory infection (principal); R65.21 Severe sepsis with septic shock; J96.90 Respiratory failure, unspecified, unspecified whether with hypoxia or hypercapnia; E43 Unspecified severe protein-calorie malnutrition; I50.33 Acute on chronic diastolic (congestive) heart failure; A41.9 Sepsis, unspecified organism; G93.40 Encephalopathy, unspecified; I48.0 Paroxysmal atrial fibrillation; E87.1 Hypo-osmolality and hyponatremia; J44.1 Chronic obstructive pulmonary disease with (acute) exacerbation; D64.9 Anemia, unspecified; Z68.20 Body mass index [BMI] 20.0-20.9, adult; J15.0 Pneumonia due to Klebsiella pneumoniae; F14.10 Cocaine abuse, uncomplicated; F31.9 Bipolar disorder, unspecified; E87.0 Hyperosmolality and hypernatremia; I11.0 Hypertensive heart disease with heart failure; M79.1 Myalgia; F03.90 Unspecified dementia, unspecified severity, without behavioral disturbance, psychotic disturbance, mood disturbance, and anxiety; K92.2 Gastrointestinal hemorrhage, unspecified; Z66 Do not resuscitate; D69.6 Thrombocytopenia, unspecified; E53.8 Deficiency of other specified B group vitamins; E61.1 Iron deficiency; E83.42 Hypomagnesemia; Z59.0 Homelessness; I47.1 Supraventricular tachycardia; N17.9 Acute kidney failure, unspecified
CPT/HCPCS: 36415; 36600; 71045; 80053; 80162; 80202; 80307; 82270; 82550; 82553; 82607; 82746; 82803; 82962; 83540; 83550; 83605; 83735; 83880; 83935; 84300; 84443; 84484; 85007; 85025; 86710; 86850; 86900; 86901; 86920; 87070; 87081; 87181; 87205; 87324; 93005; 93306; 93925; 94640; 94660; 94664; 94760; 99285; J2405; J7620; J8499